=== PATIENT | female | born 1930 | race African-American/Black ===

== ENCOUNTER 2016-08-10 03:40 | Inpatient (IN) | payer MEDICARE, MEDICAID ==
[2016-08-10] VITALS (8 sets, daily range): BP systolic 106–159; BP diastolic 40–69
[~2016-08-10] VITALS: Ht 157.5 cm; Wt 63.5 kg
[~2016-08-10 03:40] MED LIST: ALBUTEROL SULF8.5 GM INH; AMBIEN10 MG ORAL; AMBIEN5 MG ORAL; ATROVENT HFA12.9 GM IH; CALCIUM500 M3 PO; CRESTOR10 M1 ORAL; CRESTOR10 M2 ORAL; Crestor; DIOVAN160 MG ORAL; ELIQUIS2.5 MG PO; HYDROCHLOROTHIA25 MG ORAL; LYRICA25 MG ORAL; Lyrica; METOPROLOL TART25 MG ORAL; PROCARDIA XL90 MG PO; SYMBICORT 80-10.2 G1 IH; TYLENOL100 MG/11 PO; VYTORIN 10-201 EACH ORAL
[2016-08-10] MEDS ORDERED: Nitroglycerin Subl 0.4mg tab (Bottle Of 25) SL ONE (03:50)
[2016-08-10] MEDS: Nitroglycerin Subl 0.4mg tab (Bottle Of 25) SL PRN ×2 (03:56→04:27)
--- NOTE | 2016-08-10 04:04 | Emergency Room Report ---
History of Present Illness General Chief Complaint: Dyspnea/Respdistress Source: Patient, Family Member Present Illness HPI Patient is an 86-year-old female who presented after increased difficulty breathing. Patient gradual onset of symptoms over the past 3 days. The patient reports having increased orthopnea. Patient prior history of pacemaker placement. Patient had no recent productive cough. She reported having some chest tightness. She noted some increased leg swelling. The patient had prior history of inhaler use from asthma. She had been using her inhaler more frequently. Allergies: Coded Allergies: No Known Allergies (Verified , 03/30/09) Patient History Past Medical History: see triage record Reviewed Nursing Documentation: PMH: Agreed, PSxH: Agreed Nursing Documentation-PMH Hx Cardiac Problems: Yes Hx Hypertension: Yes Hx Pacemaker: No Hx Asthma: Yes Hx COPD: Yes Hx Diabetes: No Hx Cancer: Yes Hx Gastrointestinal Problems: No Hx Dialysis: No Hx Neurological Problems: No Hx Cerebrovascular Accident: No Hx Seizures: No Review of Systems All Other Systems: limited - by poor historian Physical Exam Vital Signs Date Time Temp Pulse Resp B/P Pulse Ox O2 Delivery O2 Flow Rate FiO2 08/10/16 03:48 97.9 77 21 158/65 96 Room Air Sp02 EP Interpretation: reviewed, normal General Appearance: normal inspection, alert, GCS 15, moderate distress Head: atraumatic ENT: normal ENT inspection, hearing grossly normal, normal voice Neck: normal inspection, supple, no bony tend, limited range of motion, other - jvd Respiratory: normal inspection, lungs clear, normal breath sounds, no respiratory distress, no retraction, no wheezing Cardiovascular #1: regular rate, rhythm, edema - trace edema Gastrointestinal: normal inspection, normal bowel sounds, non tender, soft, no guarding, no hernia Genitourinary: no CVA tenderness Musculoskeletal: normal inspection, back normal, normal range of motion Neurologic: normal inspection, alert, oriented x3, responsive, 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 Differential included but was not limited to anemia, pneumonia, pneumothorax, myocardial infarction, pericardial effusion, congestive heart failure, acidosis. Because of complexity of patient' s case laboratory testing and imaging studies were ordered. EKG interpreted by me showed paced rhythm with no acute ST or T wave changes. Patient was placed on polisher implant. This was given nitroglycerin as well as Lasix. The patient's laboratory testing was notable for markedly elevated BNP white blood count was noted be normal.Dr. Fredy Benjamin was contacted for inpatient management Labs Test 08/10/16 04:15 08/10/16 04:30 White Blood Count 7.7 K/UL (4.8-10.8) Red Blood Count 4.04 M/UL (4.20-5.40) Hemoglobin 12.5 G/DL (12.0-16.0) Hematocrit 38.1 % (37.0-47.0) Mean Corpuscular Volume 94 FL (80-99) Mean Corpuscular Hemoglobin 31.0 PG (27.0-31.0) Mean Corpuscular Hemoglobin Concent 32.8 G/DL (32.0-36.0) Red Cell Distribution Width 13.9 % (11.6-14.8) Platelet Count 227 K/UL (150-450) Mean Platelet Volume 7.2 FL (6.5-10.1) Neutrophils (%) (Auto) 52.5 % (45.0-75.0) Lymphocytes (%) (Auto) 32.6 % (20.0-45.0) Monocytes (%) (Auto) 10.9 % (1.0-10.0) Eosinophils (%) (Auto) 2.5 % (0.0-3.0) Basophils (%) (Auto) 1.5 % (0.0-2.0) Prothrombin Time 10.3 SEC (9.30-11.50) Prothromb Time International Ratio 1.0 (0.9-1.1) Activated Partial Thromboplast Time 27 SEC (23-33) Sodium Level 141 mEQ/L (135-145) Potassium Level 3.9 mEQ/L (3.4-4.9) Chloride Level 101 mEQ/L (98-107) Carbon Dioxide Level 22 mEQ/L (20-30) Anion Gap 18 (5-15) Blood Urea Nitrogen 12 mg/dL (7-23) Creatinine 1.1 mg/dL (0.5-0.9) Estimat Glomerular Filtration Rate mL/min (>60) Glucose Level 111 mg/dL (74-106) Lactic Acid Level 1.10 mmol/L (0.66-2.22) Calcium Level 10.1 mg/dL (8.6-10.2) Total Bilirubin 0.4 mg/dL (0.0-1.2) Aspartate Amino Transf (AST/SGOT) 14 U/L (5-40) Alanine Aminotransferase (ALT/SGPT) 7 U/L (3-33) Alkaline Phosphatase 69 U/L (35-104) Total Creatine Kinase 32 U/L (26-140) Creatine Kinase MB 2.1 ng/mL (< 3.8) Creatine Kinase MB Relative Index 6.5 Troponin I < 0.30 ng/mL (<=0.30) Pro-B-Type Natriuretic Peptide 3038 pg/mL (0-450) Total Protein 7.2 g/dL (6.6-8.7) Albumin 3.6 g/dL (3.5-5.2) Globulin 3.6 g/dL Albumin/Globulin Ratio 1.0 (1.0-2.7) Urine Color Yellow Urine Appearance Clear Urine pH 6 (4.5-8.0) Urine Specific [place] 1.005 (1.005-1.035) Urine Protein 1+ (NEGATIVE) Urine Glucose (UA) Negative (NEGATIVE) Urine Ketones Negative (NEGATIVE) Urine Occult Blood 4+ (NEGATIVE) Urine Nitrite Negative (NEGATIVE) Urine Bilirubin Negative (NEGATIVE) Urine Urobilinogen Normal MG/DL (0.0-1.0) Urine Leukocyte Esterase Negative (NEGATIVE) Urine RBC 5-10 /HPF (0 - 2) Urine WBC 0 /HPF (0 - 2) Urine Squamous Epithelial Cells Few /LPF (NONE/OCC) Urine Bacteria None /HPF (NONE) Rhythm Strip Diag. Results Rhythm: no PVC's, no ectopy, other - paced rhythm 67 Chest X-Ray Diagnostic Results EP Interpretation: Yes Findings: no effusion, no pneumothorax, no acute cardiopulmonary disease, other - elevated right hemidiaphragm Number of Views: 1 Last Vital Signs Date Time Temp Pulse Resp B/P Pulse Ox O2 Delivery O2 Flow Rate FiO2 08/10/16 03:56 159/62 08/10/16 03:48 97.9 77 21 96 Room Air Status: unchanged Disposition: ADMITTED INPATIENT Condition: Serious Referrals: NOT CHOSEN IPA/,REFERRING (PCP) Freeman Duong Aug 10, 2016 04:04
[2016-08-10] MEDS ORDERED: Aspirin Baby 81mg ORAL ONE (04:15)
[2016-08-10 04:27] LABS: BASOPHILS % (AUTO) 1.5 % (0.0-2.0); EOSINOPHILS % (AUTO) 2.5 % (0.0-3.0); LYMPHOCYTES % (AUTO) 32.6 % (20.0-45.0); MEAN CORPUSCULAR HGB CONC 32.8 G/DL (32.0-36.0); MEAN CORPUSCULAR VOLUME 94 FL (80-99); MEAN PLATELET VOLUME 7.2 FL (6.5-10.1); MONOCYTES % (AUTO) 10.9 % (1.0-10.0); NEUTROPHILS % (AUTO) 52.5 % (45.0-75.0); PLATELET COUNT 227 K/UL (150-450); RED BLOOD COUNT 4.04 M/UL (4.20-5.40); RED CELL DISTRIBUTION WIDTH 13.9 % (11.6-14.8); WHITE BLOOD COUNT 7.7 K/UL (4.8-10.8)
[2016-08-10 04:37] LABS: APPEARANCE,URINE CLEAR; KETONES,URINE NEGATIVE (NEGATIVE); LEUKOCYTE ESTERASE ,URINE NEGATIVE (NEGATIVE); NITRITE,URINE NEGATIVE (NEGATIVE); PH,URINE 6 (4.5-8.0); PROTEIN,URINE 1+ (NEGATIVE); UROBILINOGEN,URINE NORMAL MG/DL (0.0-1.0)
[2016-08-10 04:38] LABS: PROTHROMBIN TIME 10.3 SEC (9.30-11.50)
[2016-08-10] MEDS ORDERED: CARDIZEM60 MG ORAL (04:42)
[2016-08-10 04:46] LABS: ALANINE AMINOTRANSFERASE 7 U/L (3-33); ANION GAP 18 (5-15); ASPARTATE AMINO TRANSFERASE 14 U/L (5-40); CALCIUM 10.1 mg/dL (8.6-10.2); CARBON DIOXIDE 22 mEQ/L (20-30); CHLORIDE 101 mEQ/L (98-107); CREATININE 1.1 mg/dL (0.5-0.9); HEMOLYSIS 10; POTASSIUM 3.9 mEQ/L (3.4-4.9); SODIUM 141 mEQ/L (135-145); TOTAL PROTEIN 7.2 g/dL (6.6-8.7)
[2016-08-10 04:50] LABS: TROPONIN I < 0.30 ng/mL (<=0.30)
[2016-08-10 04:57] LABS: CKMB 2.1 ng/mL (< 3.8)
[2016-08-10 05:02] LABS: SQUAMOUS EPITHELIAL CELL,UR FEW /LPF (NONE/OCC); WBC,URINE 0 /HPF (0 - 2)
[2016-08-10] MEDS ORDERED: Milk of Magnesia 30ml Ud ORAL PRN (08:15)
[2016-08-10] MEDS ORDERED: Zolpidem 5mg tab ORAL PRN (08:15)
[2016-08-10] MEDS ORDERED: Nitroglycerin Subl 0.4mg tab (Bottle Of 25) SL PRN (08:15)
[2016-08-10] MEDS ORDERED: DuoNeb 0.5-3(2.5)mg/3ml neb INH PRN (08:15)
[2016-08-10] MEDS ORDERED: Mylanta II UD 30ml ORAL PRN (08:15)
[2016-08-10] MEDS ORDERED: Miralax 17gm pkt ORAL PRN (08:15)
[2016-08-10] MEDS: Lyrica 25mg cap ORAL SCH ×3 (09:00→17:59)
[2016-08-10] MEDS: Eliquis 2.5mg tablet ORAL SCH ×2 (09:21→17:40)
[2016-08-10] MEDS: Aspirin Baby 81mg ORAL SCH (09:21)
[2016-08-10] MEDS: Docusate 100mg cap ORAL SCH ×2 (09:23→20:16)
--- NOTE | 2016-08-10 09:41 | Diagnostic Imaging Report ---
Indication: Chest pain Technique: XRAY CHEST 1 V Comparison: 02/07/16 Findings: Cardiac silhouette is prominent. There is again elevation of the right hemidiaphragm. There is mild central pulmonary vascular prominence. Bibasilar atelectasis is noted. There is a left chest pacemaker. Osseous structures are stable. Impression: Cardiomegaly with mild central pulmonary vascular congestion. Bibasilar atelectasis. Elevation of the right hemidiaphragm. Left chest pacemaker.
--- NOTE | 2016-08-10 11:31 | Consultation ---
History of Present Illness General Date patient seen: Aug 10, 2016 Chief Complaint: Dyspnea/Respdistress Referring physician: Dr. Benjamin Reason for Consultation: dyspnea Present Illness HPI 86-year-old female with hx of cardiac disease, Pacemaker, COPD, bladder cancer who presented after increased difficulty breathing. Patient gradual onset of symptoms over the past 3 days. Patient had no recent productive cough. No fevers, no other cold or Flu symptoms. She reported having some chest tightness and some increased leg swelling. she was diagnosed to have acute exacerbation of her CHF and COPD and admitted to telemetry for further treatment. Allergies: Coded Allergies: No Known Allergies (Verified , 03/30/09) Medication History Scheduled Albuterol Sulfate* (Albuterol Sulfate Mdi*), 2 PUFF INH Q6H, (Reported) Apixaban (Eliquis), 2.5 MG PO BID, (Reported) Diltiazem Hcl* (Cardizem*), 120 MG ORAL DAILY, (Reported) Metoprolol Tartrate* (Metoprolol Tartrate*), 25 MG ORAL BID, (Reported) Nifedipine Xl* (Procardia Xl*), 90 MG PO DAILY, (Reported) Pregabalin (Lyrica), 25 MG ORAL BID, (Reported) Rosuvastatin Calcium (Crestor), 10 MG ORAL DAILY, (Reported) Valsartan (Diovan), 160 MG ORAL DAILY, (Reported) Scheduled PRN Zolpidem Tartrate* (Ambien*), 10 MG ORAL BEDTIME PRN for Insomnia, (Reported) Miscellaneous Medications Budesonide/Formoterol Fumarate (Symbicort 80-4.5 Mcg Inhaler), 1 PUFF IH, ( Reported) Calcium Carbonate (Calcium), 10 MG PO, (Reported) Ipratropium [place] (Atrovent Hfa), 12.9 GM IH, (Reported) Patient History Healthcare decision maker Resuscitation status Advanced Directive on File Past Medical/Surgical History Past Medical/Surgical History: (1) Depression (2) Asthma (3) Congestive heart failure (4) Cervical disc disease (5) Pacemaker Review of Systems Respiratory: Reports: shortness of breath All Other Systems: negative except mentioned in HPI Physical Exam General Appearance: WD/WN, no apparent distress Lines, tubes and drains: peripheral, central line HEENT: normocephalic, anicteric Neck: non-tender, normal alignment Respiratory/Chest: chest wall non-tender, lungs clear, rhonchi - bilaterally Cardiovascular/Chest: normal peripheral pulses, regular rhythm Abdomen: normal bowel sounds, non tender Extremities: normal range of motion, non-tender Skin Exam: normal pigmentation Last 24 Hour Vital Signs Date Time Temp Pulse Resp B/P Pulse Ox O2 Delivery O2 Flow Rate FiO2 08/10/16 09:22 73 154/69 08/10/16 08:01 96.3 73 18 154/69 100 Room Air 08/10/16 07:36 97.8 80 22 134/41 96 Room Air 68 08/10/16 07:04 65 22 134/41 96 Room Air 08/10/16 06:12 68 22 145/50 96 Room Air 08/10/16 05:17 72 22 144/42 96 Room Air 08/10/16 04:52 68 22 Room Air 08/10/16 04:27 159/62 08/10/16 04:00 97.8 80 16 159/62 94 Room Air 08/10/16 03:56 159/62 08/10/16 03:48 97.9 77 21 158/65 96 Room Air Intake and Output 08/09/16 08/10/16 19:00 07:00 Output Total 60 ml Balance -60 ml Output Urine Total 60 ml Laboratory Tests Test 08/10/16 04:15 08/10/16 04:30 White Blood Count 7.7 K/UL (4.8-10.8) Red Blood Count 4.04 M/UL (4.20-5.40) L Hemoglobin 12.5 G/DL (12.0-16.0) Hematocrit 38.1 % (37.0-47.0) Mean Corpuscular Volume 94 FL (80-99) Mean Corpuscular Hemoglobin 31.0 PG (27.0-31.0) Mean Corpuscular Hemoglobin Concent 32.8 G/DL (32.0-36.0) Red Cell Distribution Width 13.9 % (11.6-14.8) Platelet Count 227 K/UL (150-450) Mean Platelet Volume 7.2 FL (6.5-10.1) Neutrophils (%) (Auto) 52.5 % (45.0-75.0) Lymphocytes (%) (Auto) 32.6 % (20.0-45.0) Monocytes (%) (Auto) 10.9 % (1.0-10.0) H Eosinophils (%) (Auto) 2.5 % (0.0-3.0) Basophils (%) (Auto) 1.5 % (0.0-2.0) Prothrombin Time 10.3 SEC (9.30-11.50) Prothromb Time International Ratio 1.0 (0.9-1.1) Activated Partial Thromboplast Time 27 SEC (23-33) Sodium Level 141 mEQ/L (135-145) Potassium Level 3.9 mEQ/L (3.4-4.9) Chloride Level 101 mEQ/L (98-107) Carbon Dioxide Level 22 mEQ/L (20-30) Anion Gap 18 (5-15) H Blood Urea Nitrogen 12 mg/dL (7-23) Creatinine 1.1 mg/dL (0.5-0.9) H Estimat Glomerular Filtration Rate mL/min (>60) Glucose Level 111 mg/dL (74-106) H Lactic Acid Level 1.10 mmol/L (0.66-2.22) Calcium Level 10.1 mg/dL (8.6-10.2) Total Bilirubin 0.4 mg/dL (0.0-1.2) Aspartate Amino Transf (AST/SGOT) 14 U/L (5-40) Alanine Aminotransferase (ALT/SGPT) 7 U/L (3-33) Alkaline Phosphatase 69 U/L (35-104) Total Creatine Kinase 32 U/L (26-140) Creatine Kinase MB 2.1 ng/mL (< 3.8) Creatine Kinase MB Relative Index 6.5 Troponin I < 0.30 ng/mL (<=0.30) Pro-B-Type Natriuretic Peptide 3038 pg/mL (0-450) H Total Protein 7.2 g/dL (6.6-8.7) Albumin 3.6 g/dL (3.5-5.2) Globulin 3.6 g/dL Albumin/Globulin Ratio 1.0 (1.0-2.7) Urine Color Yellow Urine Appearance Clear Urine pH 6 (4.5-8.0) Urine Specific [place] 1.005 (1.005-1.035) Urine Protein 1+ (NEGATIVE) H Urine Glucose (UA) Negative (NEGATIVE) Urine Ketones Negative (NEGATIVE) Urine Occult Blood 4+ (NEGATIVE) H Urine Nitrite Negative (NEGATIVE) Urine Bilirubin Negative (NEGATIVE) Urine Urobilinogen Normal MG/DL (0.0-1.0) Urine Leukocyte Esterase Negative (NEGATIVE) Urine RBC 5-10 /HPF (0 - 2) H Urine WBC 0 /HPF (0 - 2) Urine Squamous Epithelial Cells Few /LPF (NONE/OCC) Urine Bacteria None /HPF (NONE) Height (Feet): 5 Height (Inches): 2.00 Weight (Pounds): 140 Medications Current Medications Medications (Trade) Dose Ordered Sig/Tricia Route PRN Reason Start Time Stop Time Status Last Admin Dose Admin Al Hydroxide/Mg Hydroxide (Mylanta II) 30 ml Q6H PRN ORAL dyspepsia 08/10/16 08:15 09/09/16 08:14 Albuterol/ Ipratropium (DuoNeb 0.5-3(2.5)mg/3ml) 3 ml Q4H PRN INH Shortness of Breath 08/10/16 08:15 08/15/16 08:14 Albuterol/ Ipratropium (DuoNeb 0.5-3(2.5)mg/3ml) 3 ml Q8HRT INH 08/10/16 15:00 08/15/16 14:59 Apixaban (Eliquis) 2.5 mg BID ORAL 08/10/16 09:30 09/09/16 09:29 08/10/16 09:21 Aspirin (ASA) 81 mg DAILY ORAL 08/10/16 09:00 09/09/16 08:59 08/10/16 09:21 Bisacodyl (Dulcolax) 10 mg HSPRN PRN RECTAL Constipation 08/10/16 08:15 09/09/16 08:14 Dextrose (Dextrose 50%) STAT PRN IV Hypoglycemia 08/10/16 08:15 09/09/16 08:14 Docusate Sodium (Colace) 100 mg EVERY 12 HOURS ORAL 08/10/16 09:00 09/09/16 08:59 08/10/16 09:23 Magnesium Hydroxide (Mom) 30 ml HSPRN PRN ORAL Constipation 08/10/16 08:15 09/09/16 08:14 Nifedipine (Procardia XL) 90 mg DAILY ORAL 08/10/16 09:00 09/09/16 08:59 08/10/16 09:22 Nitroglycerin (Ntg) 0.4 mg Q5M X 3 DOSES PRN SL Prn Chest Pain 08/10/16 08:15 09/09/16 08:14 Ondansetron HCl (Zofran) 4 mg Q6H PRN IVP Nausea & Vomiting 08/10/16 08:15 09/09/16 08:14 Pantoprazole (Protonix) 40 mg DAILY ORAL 08/10/16 09:00 09/09/16 08:59 08/10/16 09:22 Polyethylene Glycol (Miralax) 17 gm HSPRN PRN ORAL Constipation 08/10/16 08:15 09/09/16 08:14 Pregabalin (Lyrica) 25 mg BID ORAL 08/10/16 09:00 09/09/16 08:59 Zolpidem Tartrate (Ambien) 10 mg BEDTIME PRN ORAL Insomnia 08/10/16 08:15 09/09/16 08:14 Assessment/Plan Problem List: (1) Congestive heart failure Qualifiers: (2) COPD (chronic obstructive pulmonary disease) ICD Codes: J44.9 - Chronic obstructive pulmonary disease, unspecified SNOMED: 03154115 Qualifiers: (3) Sick sinus syndrome ICD Codes: I49.5 - Sick sinus syndrome SNOMED: 17718615 (4) Pacemaker ICD Codes: Z95.0 - Presence of cardiac pacemaker SNOMED: 23531716, 126603302, 485783954 Assessment/Plan respiratory treatment IV lasix check out pace maker, echo cardiogram daily intake and output AYDE ASHLEY Aug 10, 2016 11:31
--- NOTE | 2016-08-10 12:41 | History & Physical ---
History and Physical History & Physicial Fredy Benjamin MD Aug 10, 2016 12:41
[2016-08-10] MEDS: DuoNeb 0.5-3(2.5)mg/3ml neb INH SCH (15:59)
--- NOTE | 2016-08-10 17:49 | Cardiology Progress Note ---
Subjective Subjective [id number] Objective Last 24 Hour Vital Signs Date Time Temp Pulse Resp B/P Pulse Ox O2 Delivery O2 Flow Rate FiO2 08/10/16 16:10 72 20 100 Room Air 08/10/16 16:00 97.2 78 21 106/40 97 Room Air 08/10/16 16:00 83 18 100 Room Air 08/10/16 15:59 83 18 Room Air 08/10/16 12:00 72 08/10/16 11:24 96.8 74 18 149/55 100 Room Air 08/10/16 09:22 73 154/69 08/10/16 08:01 96.3 73 18 154/69 100 Room Air 08/10/16 08:00 72 08/10/16 07:36 97.8 80 22 134/41 96 Room Air 68 08/10/16 07:04 65 22 134/41 96 Room Air 08/10/16 06:12 68 22 145/50 96 Room Air 08/10/16 05:17 72 22 144/42 96 Room Air 08/10/16 04:52 68 22 Room Air 08/10/16 04:27 159/62 08/10/16 04:00 97.8 80 16 159/62 94 Room Air 08/10/16 03:56 159/62 08/10/16 03:48 97.9 77 21 158/65 96 Room Air Intake and Output 08/09/16 08/10/16 19:00 07:00 Output Total 60 ml Balance -60 ml Output Urine Total 60 ml Laboratory Tests Test 08/10/16 04:15 08/10/16 04:30 White Blood Count 7.7 K/UL (4.8-10.8) Red Blood Count 4.04 M/UL (4.20-5.40) L Hemoglobin 12.5 G/DL (12.0-16.0) Hematocrit 38.1 % (37.0-47.0) Mean Corpuscular Volume 94 FL (80-99) Mean Corpuscular Hemoglobin 31.0 PG (27.0-31.0) Mean Corpuscular Hemoglobin Concent 32.8 G/DL (32.0-36.0) Red Cell Distribution Width 13.9 % (11.6-14.8) Platelet Count 227 K/UL (150-450) Mean Platelet Volume 7.2 FL (6.5-10.1) Neutrophils (%) (Auto) 52.5 % (45.0-75.0) Lymphocytes (%) (Auto) 32.6 % (20.0-45.0) Monocytes (%) (Auto) 10.9 % (1.0-10.0) H Eosinophils (%) (Auto) 2.5 % (0.0-3.0) Basophils (%) (Auto) 1.5 % (0.0-2.0) Prothrombin Time 10.3 SEC (9.30-11.50) Prothromb Time International Ratio 1.0 (0.9-1.1) Activated Partial Thromboplast Time 27 SEC (23-33) Sodium Level 141 mEQ/L (135-145) Potassium Level 3.9 mEQ/L (3.4-4.9) Chloride Level 101 mEQ/L (98-107) Carbon Dioxide Level 22 mEQ/L (20-30) Anion Gap 18 (5-15) H Blood Urea Nitrogen 12 mg/dL (7-23) Creatinine 1.1 mg/dL (0.5-0.9) H Estimat Glomerular Filtration Rate mL/min (>60) Glucose Level 111 mg/dL (74-106) H Lactic Acid Level 1.10 mmol/L (0.66-2.22) Calcium Level 10.1 mg/dL (8.6-10.2) Total Bilirubin 0.4 mg/dL (0.0-1.2) Aspartate Amino Transf (AST/SGOT) 14 U/L (5-40) Alanine Aminotransferase (ALT/SGPT) 7 U/L (3-33) Alkaline Phosphatase 69 U/L (35-104) Total Creatine Kinase 32 U/L (26-140) Creatine Kinase MB 2.1 ng/mL (< 3.8) Creatine Kinase MB Relative Index 6.5 Troponin I < 0.30 ng/mL (<=0.30) Pro-B-Type Natriuretic Peptide 3038 pg/mL (0-450) H Total Protein 7.2 g/dL (6.6-8.7) Albumin 3.6 g/dL (3.5-5.2) Globulin 3.6 g/dL Albumin/Globulin Ratio 1.0 (1.0-2.7) Urine Color Yellow Urine Appearance Clear Urine pH 6 (4.5-8.0) Urine Specific [place] 1.005 (1.005-1.035) Urine Protein 1+ (NEGATIVE) H Urine Glucose (UA) Negative (NEGATIVE) Urine Ketones Negative (NEGATIVE) Urine Occult Blood 4+ (NEGATIVE) H Urine Nitrite Negative (NEGATIVE) Urine Bilirubin Negative (NEGATIVE) Urine Urobilinogen Normal MG/DL (0.0-1.0) Urine Leukocyte Esterase Negative (NEGATIVE) Urine RBC 5-10 /HPF (0 - 2) H Urine WBC 0 /HPF (0 - 2) Urine Squamous Epithelial Cells Few /LPF (NONE/OCC) Urine Bacteria None /HPF (NONE) MAGUE DELEON Aug 10, 2016 17:49
--- NOTE | 2016-08-10 20:39 | History and Physical Report ---
DATE OF ADMISSION: 08/10/2016 CHIEF COMPLAINT: Shortness of breath. HISTORY OF PRESENT ILLNESS: This is an 86-year-old very delightful female with past medical history significant for sick sinus syndrome status post pacemaker, history of COPD, and bladder cancer on remission, who was presented to hospital complaining about difficulty bleeding and has been going on over past five days and progressively worsening. The patient stated that she has nonproductive cough occasionally. She denies any flu-like symptoms or history of fever or chills. She denies any loss of consciousness leg edema. She has lost over 30 pounds due to the lack of appetite. Shortly after initial evaluation in the emergency, the patient was admitted to the hospital with fluid overload with acute COPD and CHF exacerbation. PAST MEDICAL HISTORY/PAST SURGICAL HISTORY: As above. 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 MEDICATIONS: Medications at home significant for Diovan 160 mg daily, Crestor 10 mg daily, Lyrica 25 mg b.i.d., Procardia XL 90 mg daily, metoprolol 25 mg b.i.d., Eliquis 2.5 mg b.i.d., and albuterol inhaler, but I am not sure if the patient's compliance with that. The patient also taking Ambien 10 mg p.o. at nightly for insomnia as well as Symbicort, calcium, and Atrovent nebulizer. SOCIAL HISTORY: Denies any smoking, alcohol, or drugs. Very supportive family. FAMILY HISTORY: Noncontributory. REVIEW OF SYSTEMS: Mostly as above. Denies any dysuria, frequency, or hematuria. Complained about shortness of breath. Complained about pedal edema. Denies any hemoptysis or hematochezia. Denies any bright red blood per rectum. Denies any loss of consciousness. PHYSICAL EXAMINATION: VITAL SIGNS: On admission, temperature 97.8 degrees, pulse of 80, respiration 22, and blood pressure 134/41. GENERAL: The patient awake and responsive, no acute distress. HEAD AND NECK: Pupils are reactive to light. Extraocular movements are intact. Neck was supple. No JVD. LUNGS: Good air entry. No wheeze or rales. HEART: S1 and S2. Regular. No murmur or gallops. Left-side chest wall has a pacemaker was noted. ABDOMEN: Soft, nondistended, and nontender. No rebound tenderness. EXTREMITIES: No cyanosis or clubbing. Trace edema around ankle. NEUROLOGIC: Cranial nerves II through XII are grossly intact. The patient is moving all extremities. Gait is steady with a walker. LABORATORY AND DIAGNOSTIC DATA: Laboratory on admission from the ER, WBC of 7.7, hemoglobin 12, hematocrit 38, and platelets 227,000. Sodium 141, potassium , chloride 101, bicarbonate 22, BUN 12, and creatinine 1.1. First troponin less than 0.30. Lactic acid is 1.1. ProBNP of 3038. Total protein is 7.2. Albumin is 3.6. PT of 10, INR 1.0, and PTT of 27. UA, +1 protein, +4 occult blood, and 5 to 10 RBC. The patient has a chest x-ray done shows cardiomegaly with mild constant central pulmonary vascular congestion, bilateral atelectasis, and elevated right hemidiaphragm of left chest wall, and permanent pacemaker was noted. EKG is noted to be in a sinus rhythm with a ventricular rate of 83, left AV block and left bundle branch block, left axis deviation, no ST elevation was identified. ASSESSMENT: 1. Shortness of breath possible acute chronic obstructive pulmonary disease exacerbation as well as acute congestive heart failure. 2. Hypertension. 3. Dyslipidemia. 4. History of bladder cancer. 5. Degenerative joint disease of cervical spine. 6. Weight loss. PLAN: Admit the patient to telemetry. We will follow up with Dr. Craig, Pulmonary Critical Care and Dr. Solitario from Cardiology and Electrophysiology. Continue home medication including Eliquis and we will monitor laboratory closely, PT evaluation, and nebulizer treatment. Code status is Full Code. Fredy Benjamin M.D. DR: Miguel JOB#: [id number] CC:
[2016-08-11 00:15] VITALS: BP 130/60
--- NOTE | 2016-08-11 00:19 | Consultation ---
DATE OF CONSULTATION: 08/10/2016 CARDIOLOGY CONSULTATION REFERRING PHYSICIAN: Fredy Benjamin M.D. REASON FOR EVALUATION: Congestive heart failure. HISTORY OF PRESENT ILLNESS: History taken from the patient and her daughter. The patient indicates that she could not breathe and that is why she called ambulance, came to the emergency department. She denies any fever or syncopal episode. She also complained of substernal "gas". She is difficult historian PAST MEDICAL HISTORY: Significant for congestive heart failure. She had paroxysmal atrial fibrillation. She has a pacemaker in situ. She is chronically anticoagulated. She also has hypertension and hypertensive heart disease. She also has history of gastritis and GERD. She has history of urinary bladder in remission. MEDICATIONS: Her home medications are all reconciled. ALLERGIES: She is not allergic to any medications. HABITS: She has no history of drinking, smoking or drug abuse. REVIEW OF SYSTEMS: There is no fever, chills, abdominal pain, nausea, vomiting, syncopal episode, or PND or orthopnea. She has no wheezing or cough. PHYSICAL EXAMINATION: GENERAL: This is a pleasant elderly female, lying in bed. VITAL SIGNS: Her blood pressure initially was 160/70, heart rate is 70, her oxygen saturation is 97% on room air, and temperature was 97.2 degrees. HEENT: PERRLA. EOMI. NECK: Neck veins are elevated to approximately 8 cm (mild). The carotid upstroke bilaterally is brisk and she has a bruit in the left side. LUNGS: She has few crackles and she has rhonchi bilaterally. Anterior, there is no wheezing. There is a pacemaker on the left side. HEART: PMI is palpable in seventh intercostal space in anterior axial line. She has diminished S1. She has positive S4. She has systolic ejection murmur on the apex 2/6. ABDOMEN: Soft, slightly tender. No masses palpable. EXTREMITIES: Lower extremities, no edema. Distal pulses palpable bilaterally. Good capillary refill. LABORATORY AND DIAGNOSTIC DATA: Chest x-ray showed cardiomegaly. She has a pacemaker on the left side and she has mild pulmonary venous congestion. There is no infiltrates. Her labs from today remarkable for RBC 4.4. Her creatinine 1.1. BNP level 3038. Troponin was normal. EKG shows sinus rhythm with a ventricular pacing and wide QRS. Urinalysis was noted. IMPRESSION AND RECOMMENDATION: The patient possibly has mild congestive heart failure exacerbation versus COPD exacerbation. I could not find her echocardiogram recently. She is on nifedipine. I am going to try to limit this medication because it promotes fluid accumulation and also I am going to check and see when her pacemaker was interrogated last time. The patient not is incapable of telling that. I am going to follow this patient with you. Thank you very much for your referral. Shannen Gatica M.D. DR: BLANCA JOB#: [id number] CC: SAGAR
[2016-08-11] MEDS: DuoNeb 0.5-3(2.5)mg/3ml neb INH SCH ×4 (00:25→23:00)
[2016-08-11 07:23] LABS: TROPONIN I < 0.30 ng/mL (<=0.30)
[2016-08-11 07:27] LABS: ALANINE AMINOTRANSFERASE 6 U/L (3-33); ALBUMIN/GLOBULIN RATIO 1.2 (1.0-2.7); ANION GAP 17 (5-15); ASPARTATE AMINO TRANSFERASE 12 U/L (5-40); CALCIUM 10.1 mg/dL (8.6-10.2); CARBON DIOXIDE 26 mEQ/L (20-30); CHLORIDE 100 mEQ/L (98-107); CHOLESTEROL 170 mg/dL (< 200); CREATININE 1.2 mg/dL (0.5-0.9); HEMOLYSIS 8; MAGNESIUM 1.9 mg/dL (1.7-2.5); PHOSPHORUS 4.2 mg/dL (2.5-4.8); POTASSIUM 4.2 mEQ/L (3.4-4.9); SODIUM 143 mEQ/L (135-145); TOTAL PROTEIN 6.7 g/dL (6.6-8.7)
[2016-08-11 08:23] VITALS: BP 125/61
[2016-08-11] MEDS: Aspirin Baby 81mg ORAL SCH (08:35)
[2016-08-11] MEDS: Docusate 100mg cap ORAL SCH ×2 (08:36→22:05)
[2016-08-11] MEDS: Lyrica 25mg cap ORAL SCH ×2 (08:36→17:45)
[2016-08-11] MEDS: Eliquis 2.5mg tablet ORAL SCH ×2 (08:36→17:43)
[2016-08-11] MEDS ORDERED: Influenza Virus Vaccine 0.5ml IM ONE (10:00)
[2016-08-11 11:39] VITALS: BP 118/82
--- NOTE | 2016-08-11 11:59 | Internal Med Progress Note ---
Subjective Physician Name Fredy Benjamin Attending Physician Fredy Benjamin MD Current Medications Medications (Trade) Dose Ordered Sig/Tricia Route PRN Reason Start Time Stop Time Status Last Admin Dose Admin Acetaminophen (Tylenol) 650 mg Q6H PRN ORAL Mild Pain/Temp > 100.5 08/10/16 12:45 09/09/16 12:44 Al Hydroxide/Mg Hydroxide (Mylanta II) 30 ml Q6H PRN ORAL dyspepsia 08/10/16 08:15 09/09/16 08:14 08/10/16 20:16 Al Hydroxide/Mg Hydroxide (Mylanta) 30 ml QIDPRN PRN ORAL DYSPEPSIA 08/10/16 17:45 09/09/16 17:44 Albuterol/ Ipratropium (DuoNeb 0.5-3(2.5)mg/3ml) 3 ml Q4H PRN INH Shortness of Breath 08/10/16 08:15 08/15/16 08:14 Albuterol/ Ipratropium (DuoNeb 0.5-3(2.5)mg/3ml) 3 ml Q8HRT INH 08/10/16 15:00 08/15/16 14:59 08/11/16 00:25 Apixaban (Eliquis) 2.5 mg BID ORAL 08/10/16 09:30 09/09/16 09:29 08/11/16 08:36 Aspirin (ASA) 81 mg DAILY ORAL 08/10/16 09:00 09/09/16 08:59 08/11/16 08:35 Bisacodyl (Dulcolax) 10 mg HSPRN PRN RECTAL Constipation 08/10/16 08:15 09/09/16 08:14 Dextrose (Dextrose 50%) STAT PRN IV Hypoglycemia 08/10/16 08:15 09/09/16 08:14 Docusate Sodium (Colace) 100 mg EVERY 12 HOURS ORAL 08/10/16 09:00 09/09/16 08:59 08/10/16 20:16 Furosemide (Lasix) 20 mg DAILY IV 08/10/16 12:00 09/09/16 11:59 08/11/16 08:35 Magnesium Hydroxide (Mom) 30 ml HSPRN PRN ORAL Constipation 08/10/16 08:15 09/09/16 08:14 Nifedipine (Procardia XL) 90 mg DAILY ORAL 08/10/16 09:00 09/09/16 08:59 08/11/16 08:35 Nitroglycerin (Ntg) 0.4 mg Q5M X 3 DOSES PRN SL Prn Chest Pain 08/10/16 08:15 09/09/16 08:14 Ondansetron HCl (Zofran) 4 mg Q6H PRN IVP Nausea & Vomiting 08/10/16 08:15 09/09/16 08:14 Pantoprazole (Protonix) 40 mg DAILY ORAL 08/10/16 09:00 09/09/16 08:59 08/11/16 08:34 Polyethylene Glycol (Miralax) 17 gm HSPRN PRN ORAL Constipation 08/10/16 08:15 09/09/16 08:14 Pregabalin (Lyrica) 25 mg BID ORAL 08/10/16 09:00 09/09/16 08:59 Zolpidem Tartrate (Ambien) 10 mg BEDTIME PRN ORAL Insomnia 08/10/16 08:15 09/09/16 08:14 08/11/16 00:01 Allergies: Coded Allergies: No Known Allergies (Verified , 03/30/09) Subjective awake, alert, responsive, NAD, feeling weak Objective Last Vital Signs Date Time Temp Pulse Resp B/P Pulse Ox O2 Delivery O2 Flow Rate FiO2 08/11/16 11:39 97.8 79 18 118/82 96 Room Air Laboratory Tests Test 08/11/16 05:00 Sodium Level 143 mEQ/L (135-145) Potassium Level 4.2 mEQ/L (3.4-4.9) Chloride Level 100 mEQ/L (98-107) Carbon Dioxide Level 26 mEQ/L (20-30) Anion Gap 17 (5-15) H Blood Urea Nitrogen 17 mg/dL (7-23) Creatinine 1.2 mg/dL (0.5-0.9) H Estimat Glomerular Filtration Rate mL/min (>60) Glucose Level 86 mg/dL (74-106) Calcium Level 10.1 mg/dL (8.6-10.2) Phosphorus Level 4.2 mg/dL (2.5-4.8) Magnesium Level 1.9 mg/dL (1.7-2.5) Total Bilirubin 0.4 mg/dL (0.0-1.2) Aspartate Amino Transf (AST/SGOT) 12 U/L (5-40) Alanine Aminotransferase (ALT/SGPT) 6 U/L (3-33) Alkaline Phosphatase 69 U/L (35-104) Troponin I < 0.30 ng/mL (<=0.30) Total Protein 6.7 g/dL (6.6-8.7) Albumin 3.7 g/dL (3.5-5.2) Globulin 3.0 g/dL Albumin/Globulin Ratio 1.2 (1.0-2.7) Cholesterol Level 170 mg/dL (< 200) Microbiology Date/Time Source Procedure Growth Status 08/10/16 04:07 Blood Blood Culture - Preliminary NO GROWTH AFTER 24 HOURS Resulted 08/10/16 03:54 Blood Blood Culture - Preliminary NO GROWTH AFTER 24 HOURS Resulted Intake and Output 08/10/16 08/11/16 19:00 07:00 Intake Total 490 ml 260 ml Output Total 2750 ml 1310 ml Balance -2260 ml -1050 ml Intake Oral 490 ml 260 ml Output Urine Total 2750 ml 1310 ml # Bowel Movements 2 Objective GENERAL: The patient awake and responsive, no acute distress. HEAD AND NECK: Pupils are reactive to light. Extraocular movements are intact. Neck was supple. No JVD. LUNGS: Good air entry. No wheeze or rales. HEART: S1 and S2. Regular. No murmur , pacemaker@ LCW ABDOMEN: Soft, nondistended, and nontender. No rebound tenderness. EXTREMITIES: No cyanosis or clubbing. Trace edema around ankle. NEUROLOGIC: Cranial nerves II through XII are grossly intact. The patient is moving all extremities. Gait is steady with a walker. Assessment/Plan Assessment/Plan ASSESSMENT: 1. Shortness of breath possible acute chronic obstructive pulmonary disease exacerbation as well as acute congestive heart failure. 2. Hypertension. 3. Dyslipidemia. 4. History of bladder cancer. 5. Degenerative joint disease of cervical spine. 6. Weight loss. PLAN: On telemetry. Dr. Craig, Pulmonary Critical Care and Dr. Gamez from Cardiology DVT prophylaxis: Eliquis monitor laboratory closely, PT evaluation, Nebulizer treatment. Code status: Full Code CT chest / abdomen / Pelvic Fredy Benjamin MD Aug 11, 2016 11:59
--- NOTE | 2016-08-11 13:10 | Pulmonology Progress Note ---
Assessment/Plan Problems: (1) Congestive heart failure (2) COPD (chronic obstructive pulmonary disease) (3) Sick sinus syndrome (4) Pacemaker Assessment/Plan improving check echo cxr in am check bnp in am I/O was - 3000 on lasix 20 mg iv check electrolytes on Apixiban and Aspirin Subjective ROS Limited/Unobtainable: No Interval Events: feeling better, no short of breath Constitutional: Reports: no symptoms HEENT: Repors: no symptoms Respiratory: Reports: no symptoms Allergies: Coded Allergies: No Known Allergies (Verified , 03/30/09) Objective Last 24 Hour Vital Signs Date Time Temp Pulse Resp B/P Pulse Ox O2 Delivery O2 Flow Rate FiO2 08/11/16 11:39 97.8 79 18 118/82 96 Room Air 08/11/16 08:36 84 17 99 Room Air 08/11/16 08:35 81 125/61 08/11/16 08:34 86 16 100 Room Air 08/11/16 08:23 97.7 81 18 125/61 100 Room Air 08/11/16 08:00 117 08/11/16 04:00 75 08/11/16 00:26 84 20 100 Room Air 08/11/16 00:20 85 18 100 Room Air 08/11/16 00:15 97.5 79 20 130/60 96 Room Air 08/10/16 20:00 80 08/10/16 20:00 97.6 75 20 128/55 96 Room Air 08/10/16 16:10 72 20 100 Room Air 08/10/16 16:00 78 08/10/16 16:00 97.2 78 21 106/40 97 Room Air 08/10/16 16:00 83 18 100 Room Air 08/10/16 15:59 83 18 Room Air Intake and Output 08/10/16 08/11/16 19:00 07:00 Intake Total 490 ml 260 ml Output Total 2750 ml 1310 ml Balance -2260 ml -1050 ml Intake Oral 490 ml 260 ml Output Urine Total 2750 ml 1310 ml # Bowel Movements 2 General Appearance: WD/WN, no acute distress HEENT: normocephalic, atraumatic Respiratory/Chest: chest wall non-tender, lungs clear Cardiovascular: normal peripheral pulses, normal rate Abdomen: normal bowel sounds, soft, non tender Microbiology Date/Time Source Procedure Growth Status 08/10/16 04:07 Blood Blood Culture - Preliminary NO GROWTH AFTER 24 HOURS Resulted 08/10/16 03:54 Blood Blood Culture - Preliminary NO GROWTH AFTER 24 HOURS Resulted Laboratory Tests 08/11/16 05:00: Sodium Level 143, Potassium Level 4.2, Chloride Level 100, Carbon Dioxide Level 26, Anion Gap 17H, Blood Urea Nitrogen 17, Creatinine 1.2H, Estimat Glomerular Filtration Rate , Glucose Level 86, Calcium Level 10.1, Phosphorus Level 4.2, Magnesium Level 1.9, Total Bilirubin 0.4, Aspartate Amino Transf (AST/SGOT) 12, Alanine Aminotransferase (ALT/SGPT) 6, Alkaline Phosphatase 69, Troponin I < 0.30, Total Protein 6.7, Albumin 3.7, Globulin 3.0, Albumin/Globulin Ratio 1.2, Cholesterol Level 170 Current Medications Medications (Trade) Dose Ordered Sig/Tricia Route PRN Reason Start Time Stop Time Status Last Admin Dose Admin Acetaminophen (Tylenol) 650 mg Q6H PRN ORAL Mild Pain/Temp > 100.5 08/10/16 12:45 09/09/16 12:44 Al Hydroxide/Mg Hydroxide (Mylanta II) 30 ml Q6H PRN ORAL dyspepsia 08/10/16 08:15 09/09/16 08:14 08/10/16 20:16 Al Hydroxide/Mg Hydroxide (Mylanta) 30 ml QIDPRN PRN ORAL DYSPEPSIA 08/10/16 17:45 09/09/16 17:44 Albuterol/ Ipratropium (DuoNeb 0.5-3(2.5)mg/3ml) 3 ml Q4H PRN INH Shortness of Breath 08/10/16 08:15 08/15/16 08:14 Albuterol/ Ipratropium (DuoNeb 0.5-3(2.5)mg/3ml) 3 ml Q8HRT INH 08/10/16 15:00 08/15/16 14:59 08/11/16 00:25 Apixaban (Eliquis) 2.5 mg BID ORAL 08/10/16 09:30 09/09/16 09:29 08/11/16 08:36 Aspirin (ASA) 81 mg DAILY ORAL 08/10/16 09:00 09/09/16 08:59 08/11/16 08:35 Bisacodyl (Dulcolax) 10 mg HSPRN PRN RECTAL Constipation 08/10/16 08:15 09/09/16 08:14 Dextrose (Dextrose 50%) STAT PRN IV Hypoglycemia 08/10/16 08:15 09/09/16 08:14 Docusate Sodium (Colace) 100 mg EVERY 12 HOURS ORAL 08/10/16 09:00 09/09/16 08:59 08/10/16 20:16 Furosemide (Lasix) 20 mg DAILY IV 08/10/16 12:00 09/09/16 11:59 08/11/16 08:35 Magnesium Hydroxide (Mom) 30 ml HSPRN PRN ORAL Constipation 08/10/16 08:15 09/09/16 08:14 Nifedipine (Procardia XL) 90 mg DAILY ORAL 08/10/16 09:00 09/09/16 08:59 08/11/16 08:35 Nitroglycerin (Ntg) 0.4 mg Q5M X 3 DOSES PRN SL Prn Chest Pain 08/10/16 08:15 09/09/16 08:14 Ondansetron HCl (Zofran) 4 mg Q6H PRN IVP Nausea & Vomiting 08/10/16 08:15 09/09/16 08:14 Pantoprazole (Protonix) 40 mg DAILY ORAL 08/10/16 09:00 09/09/16 08:59 08/11/16 08:34 Polyethylene Glycol (Miralax) 17 gm HSPRN PRN ORAL Constipation 08/10/16 08:15 09/09/16 08:14 Pregabalin (Lyrica) 25 mg BID ORAL 08/10/16 09:00 09/09/16 08:59 Zolpidem Tartrate (Ambien) 10 mg BEDTIME PRN ORAL Insomnia 08/10/16 08:15 09/09/16 08:14 08/11/16 00:01 AYDE ASHLEY Aug 11, 2016 13:10
[2016-08-11 16:10] VITALS: BP 113/50
--- NOTE | 2016-08-11 16:23 | Cardiology Progress Note ---
Assessment/Plan Assessment/Plan CHF exacerbation: looks stable usbsternal gas: potentially could be angina equivalent will order stress test for tomorrow Subjective Subjective feels slightly better still has mild substernal discomfort dyspnea is mild Objective Last 24 Hour Vital Signs Date Time Temp Pulse Resp B/P Pulse Ox O2 Delivery O2 Flow Rate FiO2 08/11/16 16:10 97.5 86 18 113/50 98 Room Air 08/11/16 14:40 86 18 100 Room Air 08/11/16 14:39 88 17 100 Room Air 08/11/16 12:00 87 08/11/16 11:39 97.8 79 18 118/82 96 Room Air 08/11/16 08:36 84 17 99 Room Air 08/11/16 08:35 81 125/61 08/11/16 08:34 86 16 100 Room Air 08/11/16 08:23 97.7 81 18 125/61 100 Room Air 08/11/16 08:00 117 08/11/16 04:00 75 08/11/16 00:26 84 20 100 Room Air 08/11/16 00:20 85 18 100 Room Air 08/11/16 00:15 97.5 79 20 130/60 96 Room Air 08/10/16 20:00 80 08/10/16 20:00 97.6 75 20 128/55 96 Room Air General Appearance: no apparent distress EENT: normal ENT inspection Neck: supple Rhythm: other - caped, had episodes of a fib, short, Cardiovascular: normal rate, regular rhythm Respiratory/Chest: rhonchi - bilaterally Abdomen: soft Extremities: non-pitting Intake and Output 08/10/16 08/11/16 19:00 07:00 Intake Total 490 ml 260 ml Output Total 2750 ml 1310 ml Balance -2260 ml -1050 ml Intake Oral 490 ml 260 ml Output Urine Total 2750 ml 1310 ml # Bowel Movements 2 Laboratory Tests Test 08/11/16 05:00 Sodium Level 143 mEQ/L (135-145) Potassium Level 4.2 mEQ/L (3.4-4.9) Chloride Level 100 mEQ/L (98-107) Carbon Dioxide Level 26 mEQ/L (20-30) Anion Gap 17 (5-15) H Blood Urea Nitrogen 17 mg/dL (7-23) Creatinine 1.2 mg/dL (0.5-0.9) H Estimat Glomerular Filtration Rate mL/min (>60) Glucose Level 86 mg/dL (74-106) Calcium Level 10.1 mg/dL (8.6-10.2) Phosphorus Level 4.2 mg/dL (2.5-4.8) Magnesium Level 1.9 mg/dL (1.7-2.5) Total Bilirubin 0.4 mg/dL (0.0-1.2) Aspartate Amino Transf (AST/SGOT) 12 U/L (5-40) Alanine Aminotransferase (ALT/SGPT) 6 U/L (3-33) Alkaline Phosphatase 69 U/L (35-104) Troponin I < 0.30 ng/mL (<=0.30) Total Protein 6.7 g/dL (6.6-8.7) Albumin 3.7 g/dL (3.5-5.2) Globulin 3.0 g/dL Albumin/Globulin Ratio 1.2 (1.0-2.7) Cholesterol Level 170 mg/dL (< 200) Microbiology Date/Time Source Procedure Growth Status 08/10/16 04:07 Blood Blood Culture - Preliminary NO GROWTH AFTER 24 HOURS Resulted 08/10/16 03:54 Blood Blood Culture - Preliminary NO GROWTH AFTER 24 HOURS Resulted MAGUE DELEON Aug 11, 2016 16:23
[2016-08-11 20:00] VITALS: BP 118/58
[2016-08-12 01:05] VITALS: BP 120/57
[2016-08-12 04:08] VITALS: BP 129/78
[2016-08-12 07:42] LABS: EOSINOPHILS % (AUTO) 1.9 % (0.0-3.0); LYMPHOCYTES % (AUTO) 20.9 % (20.0-45.0); MEAN CORPUSCULAR HEMOGLOBIN 31.2 PG (27.0-31.0); MEAN CORPUSCULAR VOLUME 94 FL (80-99); MEAN PLATELET VOLUME 7.5 FL (6.5-10.1); MONOCYTES % (AUTO) 10.1 % (1.0-10.0); NEUTROPHILS % (AUTO) 66.1 % (45.0-75.0); PLATELET COUNT 233 K/UL (150-450); RED BLOOD COUNT 4.46 M/UL (4.20-5.40); RED CELL DISTRIBUTION WIDTH 13.9 % (11.6-14.8); WHITE BLOOD COUNT 7.2 K/UL (4.8-10.8)
[2016-08-12 07:46] LABS: ALANINE AMINOTRANSFERASE 6 U/L (3-33); ALBUMIN/GLOBULIN RATIO 0.8 (1.0-2.7); ANION GAP 18 (5-15); ASPARTATE AMINO TRANSFERASE 13 U/L (5-40); CARBON DIOXIDE 25 mEQ/L (20-30); CHLORIDE 98 mEQ/L (98-107); CREATININE 1.4 mg/dL (0.5-0.9); HEMOLYSIS 17; SODIUM 141 mEQ/L (135-145); TOTAL PROTEIN 7.2 g/dL (6.6-8.7)
[2016-08-12] MEDS: DuoNeb 0.5-3(2.5)mg/3ml neb INH SCH ×3 (07:47→23:00)
[2016-08-12 08:00] VITALS: BP 119/59
[2016-08-12] MEDS: Docusate 100mg cap ORAL SCH ×2 (08:46→21:00)
[2016-08-12] MEDS: Aspirin Baby 81mg ORAL SCH (08:46)
[2016-08-12] MEDS: Eliquis 2.5mg tablet ORAL SCH ×2 (08:47→18:17)
[2016-08-12] MEDS: Lyrica 25mg cap ORAL SCH ×2 (08:48→18:20)
--- NOTE | 2016-08-12 10:40 | Internal Med Progress Note ---
Subjective Date of Service: Aug 12, 2016 Physician Name Tip Paulino Attending Physician Fredy Benjamin MD Current Medications Medications (Trade) Dose Ordered Sig/Tricia Route PRN Reason Start Time Stop Time Status Last Admin Dose Admin Acetaminophen (Tylenol) 650 mg Q6H PRN ORAL Mild Pain/Temp > 100.5 08/10/16 12:45 09/09/16 12:44 Al Hydroxide/Mg Hydroxide (Mylanta II) 30 ml Q6H PRN ORAL dyspepsia 08/10/16 08:15 09/09/16 08:14 08/10/16 20:16 Al Hydroxide/Mg Hydroxide (Mylanta) 30 ml QIDPRN PRN ORAL DYSPEPSIA 08/10/16 17:45 09/09/16 17:44 Albuterol/ Ipratropium (DuoNeb 0.5-3(2.5)mg/3ml) 3 ml Q4H PRN INH Shortness of Breath 08/10/16 08:15 08/15/16 08:14 Albuterol/ Ipratropium (DuoNeb 0.5-3(2.5)mg/3ml) 3 ml Q8HRT INH 08/10/16 15:00 08/15/16 14:59 08/12/16 07:47 Apixaban (Eliquis) 2.5 mg BID ORAL 08/10/16 09:30 09/09/16 09:29 08/12/16 08:47 Aspirin (ASA) 81 mg DAILY ORAL 08/10/16 09:00 09/09/16 08:59 08/12/16 08:46 Bisacodyl (Dulcolax) 10 mg HSPRN PRN RECTAL Constipation 08/10/16 08:15 09/09/16 08:14 Dextrose (Dextrose 50%) STAT PRN IV Hypoglycemia 08/10/16 08:15 09/09/16 08:14 Docusate Sodium (Colace) 100 mg EVERY 12 HOURS ORAL 08/10/16 09:00 09/09/16 08:59 08/12/16 08:46 Furosemide (Lasix) 20 mg DAILY IV 08/10/16 12:00 09/09/16 11:59 08/12/16 08:48 Magnesium Hydroxide (Mom) 30 ml HSPRN PRN ORAL Constipation 08/10/16 08:15 09/09/16 08:14 Nifedipine (Procardia XL) 90 mg DAILY ORAL 08/10/16 09:00 09/09/16 08:59 08/12/16 08:47 Nitroglycerin (Ntg) 0.4 mg Q5M X 3 DOSES PRN SL Prn Chest Pain 08/10/16 08:15 09/09/16 08:14 Ondansetron HCl (Zofran) 4 mg Q6H PRN IVP Nausea & Vomiting 08/10/16 08:15 09/09/16 08:14 Pantoprazole (Protonix) 40 mg DAILY ORAL 08/10/16 09:00 09/09/16 08:59 08/12/16 08:47 Polyethylene Glycol (Miralax) 17 gm HSPRN PRN ORAL Constipation 08/10/16 08:15 09/09/16 08:14 Pregabalin (Lyrica) 25 mg BID ORAL 08/10/16 09:00 09/09/16 08:59 08/11/16 17:45 Zolpidem Tartrate (Ambien) 10 mg BEDTIME PRN ORAL Insomnia 08/10/16 08:15 09/09/16 08:14 08/11/16 00:01 Allergies: Coded Allergies: No Known Allergies (Verified , 03/30/09) ROS Limited/Unobtainable: No Constitutional: Reports: no symptoms HEENT: Reports: no symptoms Cardiovascular: Reports: no symptoms Respiratory: Reports: shortness of breath Gastrointestinal/Abdominal: Reports: no symptoms Genitourinary: Reports: no symptoms Neurologic/Psychiatric: Reports: no symptoms Subjective 86 YO F admitted with shortness of breath. Now Congestive heart failure/COPD exacerbation. Objective Last Vital Signs Date Time Temp Pulse Resp B/P Pulse Ox O2 Delivery O2 Flow Rate FiO2 08/12/16 08:47 85 119/59 08/12/16 08:00 96.8 18 95 Room Air 08/12/16 07:59 21 Laboratory Tests Test 08/12/16 05:20 White Blood Count 7.2 K/UL (4.8-10.8) Red Blood Count 4.46 M/UL (4.20-5.40) Hemoglobin 13.9 G/DL (12.0-16.0) Hematocrit 42.1 % (37.0-47.0) Mean Corpuscular Volume 94 FL (80-99) Mean Corpuscular Hemoglobin 31.2 PG (27.0-31.0) H Mean Corpuscular Hemoglobin Concent 33.0 G/DL (32.0-36.0) Red Cell Distribution Width 13.9 % (11.6-14.8) Platelet Count 233 K/UL (150-450) Mean Platelet Volume 7.5 FL (6.5-10.1) Neutrophils (%) (Auto) 66.1 % (45.0-75.0) Lymphocytes (%) (Auto) 20.9 % (20.0-45.0) Monocytes (%) (Auto) 10.1 % (1.0-10.0) H Eosinophils (%) (Auto) 1.9 % (0.0-3.0) Basophils (%) (Auto) 1.0 % (0.0-2.0) Sodium Level 141 mEQ/L (135-145) Potassium Level 4.0 mEQ/L (3.4-4.9) Chloride Level 98 mEQ/L (98-107) Carbon Dioxide Level 25 mEQ/L (20-30) Anion Gap 18 (5-15) H Blood Urea Nitrogen 20 mg/dL (7-23) Creatinine 1.4 mg/dL (0.5-0.9) H Estimat Glomerular Filtration Rate mL/min (>60) Glucose Level 90 mg/dL (74-106) Calcium Level 10.0 mg/dL (8.6-10.2) Total Bilirubin 0.4 mg/dL (0.0-1.2) Aspartate Amino Transf (AST/SGOT) 13 U/L (5-40) Alanine Aminotransferase (ALT/SGPT) 6 U/L (3-33) Alkaline Phosphatase 69 U/L (35-104) Pro-B-Type Natriuretic Peptide 920 pg/mL (0-450) H Total Protein 7.2 g/dL (6.6-8.7) Albumin 3.4 g/dL (3.5-5.2) L Globulin 3.8 g/dL Albumin/Globulin Ratio 0.8 (1.0-2.7) L Microbiology Date/Time Source Procedure Growth Status 08/10/16 04:07 Blood Blood Culture - Preliminary NO GROWTH AFTER 48 HOURS Resulted 08/10/16 03:54 Blood Blood Culture - Preliminary NO GROWTH AFTER 48 HOURS Resulted Intake and Output 08/11/16 08/12/16 19:00 07:00 Intake Total 460 ml 350 ml Output Total 300 ml 1000 ml Balance 160 ml -650 ml Intake Oral 460 ml 350 ml Output Urine Total 300 ml 1000 ml Objective GENERAL: The patient awake and responsive, no acute distress. HEAD AND NECK: Pupils are reactive to light. Extraocular movements are intact. Neck was supple. No JVD. LUNGS: Good air entry. No wheeze or rales. HEART: S1 and S2. Regular. No murmur , pacemaker@ LCW ABDOMEN: Soft, nondistended, and nontender. No rebound tenderness. EXTREMITIES: No cyanosis or clubbing. Trace edema around ankle. NEUROLOGIC: Cranial nerves II through XII are grossly intact. The patient is moving all extremities. Gait is steady with a walker. Assessment/Plan Assessment/Plan ASSESSMENT: 1. Shortness of breath possible acute chronic obstructive pulmonary disease exacerbation as well as acute congestive heart failure. 2. Hypertension. 3. Dyslipidemia. 4. History of bladder cancer. 5. Degenerative joint disease of cervical spine. 6. Weight loss. PLAN: On telemetry. Dr. Craig, Pulmonary Critical Care and Dr. Gamez from Cardiology DVT prophylaxis: Eliquis monitor laboratory closely, PT evaluation, Nebulizer treatment. Code status: Full Code CT chest / abdomen / Pelvic Await adenosine cardiac stress test-see cardiology note. TIP PAULINO Aug 12, 2016 10:40
--- NOTE | 2016-08-12 10:51 | Cardiology Report ---
APPROVED REPORT EKG Measurement Heart [id number] NM [id number] Sinus rhythm with 1st degree AV block possible atrial sensing ventricular pacing
[2016-08-12 11:26] VITALS: BP 122/57
--- NOTE | 2016-08-12 13:52 | Pulmonology Progress Note ---
Assessment/Plan Problems: (1) Congestive heart failure (2) COPD (chronic obstructive pulmonary disease) (3) Sick sinus syndrome (4) Pacemaker Assessment/Plan improving check echo cxr much better check bnp in am intake /output -300 hold lasix 20 mg b/o increasing creatinine, cxr is clear now check electrolytes on Apixiban and Aspirin Subjective ROS Limited/Unobtainable: No Interval Events: scheduled for stress testing Allergies: Coded Allergies: No Known Allergies (Verified , 03/30/09) Objective Last 24 Hour Vital Signs Date Time Temp Pulse Resp B/P Pulse Ox O2 Delivery O2 Flow Rate FiO2 08/12/16 11:26 97.1 91 18 122/57 96 Room Air 08/12/16 08:47 85 119/59 08/12/16 08:00 90 08/12/16 08:00 96.8 85 18 119/59 95 Room Air 08/12/16 07:59 99 16 96 Room Air 21 08/12/16 07:47 98 19 96 Room Air 21 08/12/16 04:08 98.4 79 18 129/78 96 Room Air 08/12/16 04:00 80 08/12/16 01:05 98.8 84 19 120/57 98 Room Air 08/11/16 23:54 89 18 100 Room Air 08/11/16 23:46 79 17 95 Room Air 08/11/16 20:00 84 08/11/16 20:00 97.0 69 18 118/58 97 Room Air 08/11/16 16:10 97.5 86 18 113/50 98 Room Air 08/11/16 16:00 92 08/11/16 14:40 86 18 100 Room Air 08/11/16 14:39 88 17 100 Room Air Intake and Output 08/11/16 08/12/16 19:00 07:00 Intake Total 460 ml 350 ml Output Total 300 ml 1000 ml Balance 160 ml -650 ml Intake Oral 460 ml 350 ml Output Urine Total 300 ml 1000 ml General Appearance: WD/WN HEENT: normocephalic, anicteric Respiratory/Chest: chest wall non-tender, lungs clear Cardiovascular: normal peripheral pulses, normal rate Abdomen: normal bowel sounds, soft, non tender Genitourinary: normal external genitalia Skin: no rash Musculoskeletal: normal muscle bulk Microbiology Date/Time Source Procedure Growth Status 08/10/16 04:07 Blood Blood Culture - Preliminary NO GROWTH AFTER 48 HOURS Resulted 08/10/16 03:54 Blood Blood Culture - Preliminary NO GROWTH AFTER 48 HOURS Resulted Laboratory Tests 08/12/16 05:20: White Blood Count 7.2, Red Blood Count 4.46, Hemoglobin 13.9, Hematocrit 42.1, Mean Corpuscular Volume 94, Mean Corpuscular Hemoglobin 31.2H, Mean Corpuscular Hemoglobin Concent 33.0, Red Cell Distribution Width 13.9, Platelet Count 233, Mean Platelet Volume 7.5, Neutrophils (%) (Auto) 66.1, Lymphocytes (%) (Auto) 20.9, Monocytes (%) (Auto) 10.1H, Eosinophils (%) (Auto) 1.9, Basophils (%) ( Auto) 1.0, Sodium Level 141, Potassium Level 4.0, Chloride Level 98, Carbon Dioxide Level 25, Anion Gap 18H, Blood Urea Nitrogen 20, Creatinine 1.4H, Estimat Glomerular Filtration Rate , Glucose Level 90, Calcium Level 10.0, Total Bilirubin 0.4, Aspartate Amino Transf (AST/SGOT) 13, Alanine Aminotransferase (ALT/SGPT) 6, Alkaline Phosphatase 69, Pro-B-Type Natriuretic Peptide 920H, Total Protein 7.2, Albumin 3.4L, Globulin 3.8, Albumin/Globulin Ratio 0.8L Current Medications Medications (Trade) Dose Ordered Sig/Tricia Route PRN Reason Start Time Stop Time Status Last Admin Dose Admin Acetaminophen (Tylenol) 650 mg Q6H PRN ORAL Mild Pain/Temp > 100.5 08/10/16 12:45 09/09/16 12:44 Al Hydroxide/Mg Hydroxide (Mylanta II) 30 ml Q6H PRN ORAL dyspepsia 08/10/16 08:15 09/09/16 08:14 08/10/16 20:16 Al Hydroxide/Mg Hydroxide (Mylanta) 30 ml QIDPRN PRN ORAL DYSPEPSIA 08/10/16 17:45 09/09/16 17:44 Albuterol/ Ipratropium (DuoNeb 0.5-3(2.5)mg/3ml) 3 ml Q4H PRN INH Shortness of Breath 08/10/16 08:15 08/15/16 08:14 Albuterol/ Ipratropium (DuoNeb 0.5-3(2.5)mg/3ml) 3 ml Q8HRT INH 08/10/16 15:00 08/15/16 14:59 08/12/16 07:47 Apixaban (Eliquis) 2.5 mg BID ORAL 08/10/16 09:30 09/09/16 09:29 08/12/16 08:47 Aspirin (ASA) 81 mg DAILY ORAL 08/10/16 09:00 09/09/16 08:59 08/12/16 08:46 Bisacodyl (Dulcolax) 10 mg HSPRN PRN RECTAL Constipation 08/10/16 08:15 09/09/16 08:14 Dextrose (Dextrose 50%) STAT PRN IV Hypoglycemia 08/10/16 08:15 09/09/16 08:14 Docusate Sodium (Colace) 100 mg EVERY 12 HOURS ORAL 08/10/16 09:00 09/09/16 08:59 08/12/16 08:46 Furosemide (Lasix) 20 mg DAILY IV 08/10/16 12:00 09/09/16 11:59 08/12/16 08:48 Magnesium Hydroxide (Mom) 30 ml HSPRN PRN ORAL Constipation 08/10/16 08:15 09/09/16 08:14 Nifedipine (Procardia XL) 90 mg DAILY ORAL 08/10/16 09:00 09/09/16 08:59 08/12/16 08:47 Nitroglycerin (Ntg) 0.4 mg Q5M X 3 DOSES PRN SL Prn Chest Pain 08/10/16 08:15 09/09/16 08:14 Ondansetron HCl (Zofran) 4 mg Q6H PRN IVP Nausea & Vomiting 08/10/16 08:15 09/09/16 08:14 Pantoprazole (Protonix) 40 mg DAILY ORAL 08/10/16 09:00 09/09/16 08:59 08/12/16 08:47 Polyethylene Glycol (Miralax) 17 gm HSPRN PRN ORAL Constipation 08/10/16 08:15 09/09/16 08:14 Pregabalin (Lyrica) 25 mg BID ORAL 08/10/16 09:00 09/09/16 08:59 08/11/16 17:45 Zolpidem Tartrate (Ambien) 10 mg BEDTIME PRN ORAL Insomnia 08/10/16 08:15 09/09/16 08:14 08/11/16 00:01 AYDE ASHLEY Aug 12, 2016 13:52
[2016-08-12 16:00] VITALS: BP 133/93
--- NOTE | 2016-08-12 18:07 | Cardiology Progress Note ---
Assessment/Plan Assessment/Plan improved does not want any further cardiac work up, says she is fine Subjective Subjective refused stress test had it before and afraid of it, it causes palpitations she thinks the test is dangerous she feels better, no "gas', but has mild dyspnea Objective Last 24 Hour Vital Signs Date Time Temp Pulse Resp B/P Pulse Ox O2 Delivery O2 Flow Rate FiO2 08/12/16 16:00 104 08/12/16 16:00 97.7 100 20 133/93 94 Room Air 08/12/16 12:00 94 08/12/16 11:26 97.1 91 18 122/57 96 Room Air 08/12/16 08:47 85 119/59 08/12/16 08:00 90 08/12/16 08:00 96.8 85 18 119/59 95 Room Air 08/12/16 07:59 99 16 96 Room Air 21 08/12/16 07:47 98 19 96 Room Air 21 08/12/16 04:08 98.4 79 18 129/78 96 Room Air 08/12/16 04:00 80 08/12/16 01:05 98.8 84 19 120/57 98 Room Air 08/11/16 23:54 89 18 100 Room Air 08/11/16 23:46 79 17 95 Room Air 08/11/16 20:00 84 08/11/16 20:00 97.0 69 18 118/58 97 Room Air General Appearance: no apparent distress, alert EENT: PERRL/EOMI Neck: supple Rhythm: other - a sensed v apced Cardiovascular: regular rhythm Respiratory/Chest: rhonchi - bilaterally Abdomen: soft Extremities: no swelling Intake and Output 08/11/16 08/12/16 19:00 07:00 Intake Total 460 ml 350 ml Output Total 300 ml 1000 ml Balance 160 ml -650 ml Intake Oral 460 ml 350 ml Output Urine Total 300 ml 1000 ml Laboratory Tests Test 08/12/16 05:20 White Blood Count 7.2 K/UL (4.8-10.8) Red Blood Count 4.46 M/UL (4.20-5.40) Hemoglobin 13.9 G/DL (12.0-16.0) Hematocrit 42.1 % (37.0-47.0) Mean Corpuscular Volume 94 FL (80-99) Mean Corpuscular Hemoglobin 31.2 PG (27.0-31.0) H Mean Corpuscular Hemoglobin Concent 33.0 G/DL (32.0-36.0) Red Cell Distribution Width 13.9 % (11.6-14.8) Platelet Count 233 K/UL (150-450) Mean Platelet Volume 7.5 FL (6.5-10.1) Neutrophils (%) (Auto) 66.1 % (45.0-75.0) Lymphocytes (%) (Auto) 20.9 % (20.0-45.0) Monocytes (%) (Auto) 10.1 % (1.0-10.0) H Eosinophils (%) (Auto) 1.9 % (0.0-3.0) Basophils (%) (Auto) 1.0 % (0.0-2.0) Sodium Level 141 mEQ/L (135-145) Potassium Level 4.0 mEQ/L (3.4-4.9) Chloride Level 98 mEQ/L (98-107) Carbon Dioxide Level 25 mEQ/L (20-30) Anion Gap 18 (5-15) H Blood Urea Nitrogen 20 mg/dL (7-23) Creatinine 1.4 mg/dL (0.5-0.9) H Estimat Glomerular Filtration Rate mL/min (>60) Glucose Level 90 mg/dL (74-106) Calcium Level 10.0 mg/dL (8.6-10.2) Total Bilirubin 0.4 mg/dL (0.0-1.2) Aspartate Amino Transf (AST/SGOT) 13 U/L (5-40) Alanine Aminotransferase (ALT/SGPT) 6 U/L (3-33) Alkaline Phosphatase 69 U/L (35-104) Pro-B-Type Natriuretic Peptide 920 pg/mL (0-450) H Total Protein 7.2 g/dL (6.6-8.7) Albumin 3.4 g/dL (3.5-5.2) L Globulin 3.8 g/dL Albumin/Globulin Ratio 0.8 (1.0-2.7) L Microbiology Date/Time Source Procedure Growth Status 08/10/16 04:07 Blood Blood Culture - Preliminary NO GROWTH AFTER 48 HOURS Resulted 08/10/16 03:54 Blood Blood Culture - Preliminary NO GROWTH AFTER 48 HOURS Resulted MAGUE DELEON Aug 12, 2016 18:07
[2016-08-12 22:38] VITALS: BP 130/89
[2016-08-13] MEDS ORDERED: Nitroglycerin Subl 0.4mg tab (Bottle Of 25) SL PRN (01:00)
[2016-08-13] MEDS: Zolpidem 5mg tab ORAL PRN ×2 (02:10→23:49)
[2016-08-13] MEDS ORDERED: Mylanta II UD 30ml ORAL PRN (02:15)
[2016-08-13 04:00] VITALS: BP 128/61
[2016-08-13] MEDS ORDERED: DuoNeb 0.5-3(2.5)mg/3ml neb INH PRN (04:15)
[2016-08-13] MEDS: DuoNeb 0.5-3(2.5)mg/3ml neb INH SCH ×3 (07:00→23:30)
[2016-08-13 08:00] VITALS: BP 126/53
[2016-08-13] MEDS ORDERED: Milk of Magnesia 30ml Ud ORAL PRN (08:15)
[2016-08-13] MEDS ORDERED: Miralax 17gm pkt ORAL PRN (08:15)
[2016-08-13 09:30] LABS: BASOPHILS % (AUTO) 0.9 % (0.0-2.0); EOSINOPHILS % (AUTO) 3.6 % (0.0-3.0); LYMPHOCYTES % (AUTO) 14.5 % (20.0-45.0); MEAN CORPUSCULAR HEMOGLOBIN 31.1 PG (27.0-31.0); MEAN CORPUSCULAR HGB CONC 31.8 G/DL (32.0-36.0); MEAN CORPUSCULAR VOLUME 98 FL (80-99); MEAN PLATELET VOLUME 6.5 FL (6.5-10.1); MONOCYTES % (AUTO) 10.3 % (1.0-10.0); NEUTROPHILS % (AUTO) 70.6 % (45.0-75.0); PLATELET COUNT 202 K/UL (150-450); RED BLOOD COUNT 4.06 M/UL (4.20-5.40); RED CELL DISTRIBUTION WIDTH 13.5 % (11.6-14.8); WHITE BLOOD COUNT 6.5 K/UL (4.8-10.8)
[2016-08-13 09:33] LABS: ANION GAP 15 (5-15); CALCIUM 9.6 mg/dL (8.6-10.2); CARBON DIOXIDE 27 mEQ/L (20-30); CHLORIDE 101 mEQ/L (98-107); CREATININE 1.6 mg/dL (0.5-0.9); HEMOLYSIS 15; POTASSIUM 3.8 mEQ/L (3.4-4.9); SODIUM 143 mEQ/L (135-145)
[2016-08-13] MEDS: Eliquis 2.5mg tablet ORAL SCH ×2 (09:52→20:23)
[2016-08-13] MEDS: Aspirin Baby 81mg ORAL SCH (09:52)
[2016-08-13] MEDS: Docusate 100mg cap ORAL SCH ×2 (09:53→20:23)
[2016-08-13] MEDS: Lyrica 25mg cap ORAL SCH ×2 (09:53→20:25)
[2016-08-13] MEDS ORDERED: Influenza Virus Vaccine 0.5ml IM ONE (10:30)
[2016-08-13 12:00] VITALS: BP 118/51
--- NOTE | 2016-08-13 12:56 | Diagnostic Imaging Report ---
Indication: Shortness of breath and abdominal tenderness Technique: Patient ingested oral contrast administration nonionic contrast. Multiphasic spiral acquisitions obtained through the chest, abdomen, and pelvis. Multiplanar reconstructions were generated. Total dose length product 1518 mGycm. CTDIvol(s) 8, 8, 48, 18, 16 mGy. Radiation dose was minimized using automated exposure control Comparison: Chest CT dated 12/09/2013, abdomen pelvis CT dated 04/21/2009 Findings: Chest: A single cystic space or bulla is seen in the left upper lobe. There are some compressive and dependent atelectatic changes at both lung bases. The lungs are otherwise clear, without infiltrates, effusions, masses, or nodules. Granulomatous calcification is again demonstrated the right lung base. Exam was not protocoled for exclusion of pulmonary embolus. Nonetheless, pulmonary arteries are well opacified, and no gross evidence of pulmonary embolus is demonstrated. The heart is mildly enlarged. There is minimal anterior wall pericardial thickening versus fluid. There is a pacemaker. The esophagus is diffusely dilated, filled with gas and contrast, but no definite distal esophageal wall thickening or obstructing lesion is demonstrated. No mediastinal or hilar mass or adenopathy no axillary or chest wall mass or adenopathy. There is a 8mm nodule in the lower pole of the left thyroid lobe. There are coronary artery calcifications. There is no significant or change from previous study Abdomen pelvis: There is colonic diverticulosis. No evidence of diverticulitis. No small bowel distention or small bowel wall thickening. The appendix is not definitely demonstrated, but there are no findings to suggest acute appendicitis. No free or loculated intraperitoneal air or fluid is demonstrated. The liver is unremarkable. The gallbladder contains gallstones. No biliary ductal dilatation. The pancreas is slightly atrophic. The spleen, adrenals are unremarkable. The right kidney demonstrates one or more subcentimeter low-attenuation lesions which are too small to characterize. Left kidney contains multiple cysts. No retroperitoneal or mesenteric mass or adenopathy. The abdominal aorta demonstrates some focal saccular ectasia which is not quite aneurysmal, measuring 2.8 cm diameter, with some mural thrombus. The uterus demonstrates thickening of the endometrium, which measures 11 mm thick. No adnexal. There is a Araujo catheter within the bladder. There is a right hip prosthesis. There are degenerative changes of the lumbar spine. There is anterior offset of L4 on L5 and posterior offset of L5 on S1. Impression: CHEST: No definite or significant abnormality Dilated gas and contrast-filled esophagus, no definite downstream obstructive lesion. Probably on the basis of age-related changes, although occult downstream obstruction lesion cannot be completely ruled out Single cystic space or bulla in the left upper lobe Evidence of old granulomatous disease Cardiomegaly Pacemaker 8mm left lower pole thyroid nodule incidentally noted. No further followup needed ABDOMEN PELVIS: No acute abnormality Endometrial thickening. Consider pelvic and endovaginal ultrasound for further evaluation. Diverticulosis without evidence of diverticulitis Cholelithiasis Left renal cysts. Right renal low-attenuation lesions are too small to characterize, most likely benign simple cortical cysts. 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
--- NOTE | 2016-08-13 12:56 | Diagnostic Imaging Report ---
Indication: DYSPNEA Technique: One view of the chest Comparison: 08/10/2016 Findings: Persistent marked elevation of the right hemidiaphragm. No definite acute infiltrates, effusions or congestion. Borderline cardiomegaly persists. Previously demonstrated interstitial congestion is no longer evident. Left chest pacemaker is again demonstrated Impression: Acute process. Findings as noted
[2016-08-13 16:00] VITALS: BP 116/52
--- NOTE | 2016-08-13 17:19 | Pulmonology Progress Note ---
Assessment/Plan Problems: (1) Congestive heart failure (2) COPD (chronic obstructive pulmonary disease) (3) Sick sinus syndrome (4) Pacemaker Assessment/Plan improving echo noted cxr improving check bnp in am check electrolytes on Apixiban and Aspirin Subjective ROS Limited/Unobtainable: No Interval Events: doing better Allergies: Coded Allergies: No Known Allergies (Verified , 03/30/09) Objective Last 24 Hour Vital Signs Date Time Temp Pulse Resp B/P Pulse Ox O2 Delivery O2 Flow Rate FiO2 08/13/16 16:00 98.2 86 22 116/52 94 Room Air 08/13/16 15:00 96 Room Air 08/13/16 15:00 Room Air 08/13/16 12:00 96.4 89 18 118/51 94 Room Air 08/13/16 09:52 96 128/61 08/13/16 08:00 97.3 92 18 126/53 95 Room Air 08/13/16 07:00 Room Air 08/13/16 07:00 96 Room Air 08/13/16 04:00 96.8 89 20 128/61 99 Nasal Cannula 2.0 08/12/16 23:38 97 20 99 Room Air 21 08/12/16 23:37 96 20 97 Room Air 21 08/12/16 22:38 97.6 96 20 130/89 96 Room Air 08/12/16 20:00 93 Intake and Output 08/12/16 08/13/16 19:00 07:00 Intake Total 240 ml Output Total 175 ml 750 ml Balance 65 ml -750 ml Intake Oral 240 ml Output Urine Total 175 ml 750 ml General Appearance: cachetic HEENT: normocephalic, atraumatic Respiratory/Chest: chest wall non-tender, lungs clear Cardiovascular: normal peripheral pulses, normal rate Abdomen: normal bowel sounds, soft, non tender Genitourinary: normal external genitalia Extremities: no clubbing Skin: no rash Laboratory Tests 08/13/16 08:45: White Blood Count 6.5, Red Blood Count 4.06L, Hemoglobin 12.6, Hematocrit 39.6, Mean Corpuscular Volume 98, Mean Corpuscular Hemoglobin 31.1H, Mean Corpuscular Hemoglobin Concent 31.8L, Red Cell Distribution Width 13.5, Platelet Count 202, Mean Platelet Volume 6.5, Neutrophils (%) (Auto) 70.6, Lymphocytes (%) (Auto) 14.5L, Monocytes (%) (Auto) 10.3H, Eosinophils (%) (Auto) 3.6H, Basophils (%) ( Auto) 0.9, Sodium Level 143, Potassium Level 3.8, Chloride Level 101, Carbon Dioxide Level 27, Anion Gap 15, Blood Urea Nitrogen 21, Creatinine 1.6H, Estimat Glomerular Filtration Rate , Glucose Level 140H, Calcium Level 9.6, Pro- B-Type Natriuretic Peptide 668H Current Medications Medications (Trade) Dose Ordered Sig/Tricia Route PRN Reason Start Time Stop Time Status Last Admin Dose Admin Acetaminophen (Tylenol) 650 mg Q6H PRN ORAL Mild Pain/Temp > 100.5 08/13/16 06:45 09/12/16 06:44 Al Hydroxide/Mg Hydroxide (Mylanta II) 30 ml Q6H PRN ORAL dyspepsia 08/13/16 02:15 09/12/16 02:14 Albuterol/ Ipratropium (DuoNeb 0.5-3(2.5)mg/3ml) 3 ml Q4H PRN INH Shortness of Breath 08/13/16 04:15 08/18/16 04:14 Albuterol/ Ipratropium (DuoNeb 0.5-3(2.5)mg/3ml) 3 ml Q8HRT INH 08/13/16 07:00 08/18/16 06:59 Apixaban (Eliquis) 2.5 mg BID@0900,2100 ORAL 08/13/16 09:00 09/12/16 08:59 08/13/16 09:52 Aspirin (ASA) 81 mg DAILY ORAL 08/13/16 09:00 09/12/16 08:59 08/13/16 09:52 Bisacodyl (Dulcolax) 10 mg HSPRN PRN RECTAL Constipation 08/13/16 08:15 09/12/16 08:14 Dextrose (Dextrose 50%) STAT PRN IV Hypoglycemia 08/13/16 08:15 09/12/16 08:14 Docusate Sodium (Colace) 100 mg EVERY 12 HOURS ORAL 08/13/16 09:00 09/12/16 08:59 08/13/16 09:53 Magnesium Hydroxide (Mom) 30 ml HSPRN PRN ORAL Constipation 08/13/16 08:15 09/12/16 08:14 Nifedipine (Procardia XL) 90 mg DAILY ORAL 08/13/16 09:00 09/12/16 08:59 08/13/16 09:52 Nitroglycerin (Ntg) 0.4 mg Q5M X 3 DOSES PRN SL Prn Chest Pain 08/13/16 01:00 09/12/16 00:59 Ondansetron HCl (Zofran) 4 mg Q6H PRN IVP Nausea & Vomiting 08/13/16 02:15 09/12/16 02:14 Pantoprazole (Protonix) 40 mg DAILY ORAL 08/13/16 09:00 09/12/16 08:59 08/13/16 09:53 Polyethylene Glycol (Miralax) 17 gm HSPRN PRN ORAL Constipation 08/13/16 08:15 09/12/16 08:14 Pregabalin (Lyrica) 25 mg BID@0900,2100 ORAL 08/13/16 09:00 09/12/16 08:59 08/13/16 09:53 Zolpidem Tartrate (Ambien) 10 mg BEDTIME PRN ORAL Insomnia 08/13/16 02:00 09/12/16 01:59 08/13/16 02:10 AYDE ASHLEY Aug 13, 2016 17:19
--- NOTE | 2016-08-13 17:45 | Internal Med Progress Note ---
Subjective Date of Service: Aug 13, 2016 Physician Name Paulino,Leslie Attending Physician Fredy Benjamin MD Current Medications Medications (Trade) Dose Ordered Sig/Tricia Route PRN Reason Start Time Stop Time Status Last Admin Dose Admin Acetaminophen (Tylenol) 650 mg Q6H PRN ORAL Mild Pain/Temp > 100.5 08/13/16 06:45 09/12/16 06:44 Al Hydroxide/Mg Hydroxide (Mylanta II) 30 ml Q6H PRN ORAL dyspepsia 08/13/16 02:15 09/12/16 02:14 Albuterol/ Ipratropium (DuoNeb 0.5-3(2.5)mg/3ml) 3 ml Q4H PRN INH Shortness of Breath 08/13/16 04:15 08/18/16 04:14 Albuterol/ Ipratropium (DuoNeb 0.5-3(2.5)mg/3ml) 3 ml Q8HRT INH 08/13/16 07:00 08/18/16 06:59 Apixaban (Eliquis) 2.5 mg BID@0900,2100 ORAL 08/13/16 09:00 09/12/16 08:59 08/13/16 09:52 Aspirin (ASA) 81 mg DAILY ORAL 08/13/16 09:00 09/12/16 08:59 08/13/16 09:52 Bisacodyl (Dulcolax) 10 mg HSPRN PRN RECTAL Constipation 08/13/16 08:15 09/12/16 08:14 Dextrose (Dextrose 50%) STAT PRN IV Hypoglycemia 08/13/16 08:15 09/12/16 08:14 Docusate Sodium (Colace) 100 mg EVERY 12 HOURS ORAL 08/13/16 09:00 09/12/16 08:59 08/13/16 09:53 Magnesium Hydroxide (Mom) 30 ml HSPRN PRN ORAL Constipation 08/13/16 08:15 09/12/16 08:14 Nifedipine (Procardia XL) 90 mg DAILY ORAL 08/13/16 09:00 09/12/16 08:59 08/13/16 09:52 Nitroglycerin (Ntg) 0.4 mg Q5M X 3 DOSES PRN SL Prn Chest Pain 08/13/16 01:00 09/12/16 00:59 Ondansetron HCl (Zofran) 4 mg Q6H PRN IVP Nausea & Vomiting 08/13/16 02:15 09/12/16 02:14 Pantoprazole (Protonix) 40 mg DAILY ORAL 08/13/16 09:00 09/12/16 08:59 08/13/16 09:53 Polyethylene Glycol (Miralax) 17 gm HSPRN PRN ORAL Constipation 08/13/16 08:15 09/12/16 08:14 Pregabalin (Lyrica) 25 mg BID@0900,2100 ORAL 08/13/16 09:00 09/12/16 08:59 08/13/16 09:53 Zolpidem Tartrate (Ambien) 10 mg BEDTIME PRN ORAL Insomnia 08/13/16 02:00 09/12/16 01:59 08/13/16 02:10 Allergies: Coded Allergies: No Known Allergies (Verified , 03/30/09) ROS Limited/Unobtainable: No Constitutional: Reports: no symptoms HEENT: Reports: no symptoms Cardiovascular: Reports: no symptoms Respiratory: Reports: shortness of breath Gastrointestinal/Abdominal: Reports: no symptoms Genitourinary: Reports: no symptoms Neurologic/Psychiatric: Reports: no symptoms Subjective 86 YO F admitted with shortness of breath. Now Congestive heart failure/COPD exacerbation. Objective Last Vital Signs Date Time Temp Pulse Resp B/P Pulse Ox O2 Delivery O2 Flow Rate FiO2 08/13/16 16:00 98.2 86 22 116/52 94 Room Air 08/13/16 04:00 2.0 08/12/16 23:38 21 Laboratory Tests Test 08/13/16 08:45 White Blood Count 6.5 K/UL (4.8-10.8) Red Blood Count 4.06 M/UL (4.20-5.40) L Hemoglobin 12.6 G/DL (12.0-16.0) Hematocrit 39.6 % (37.0-47.0) Mean Corpuscular Volume 98 FL (80-99) Mean Corpuscular Hemoglobin 31.1 PG (27.0-31.0) H Mean Corpuscular Hemoglobin Concent 31.8 G/DL (32.0-36.0) L Red Cell Distribution Width 13.5 % (11.6-14.8) Platelet Count 202 K/UL (150-450) Mean Platelet Volume 6.5 FL (6.5-10.1) Neutrophils (%) (Auto) 70.6 % (45.0-75.0) Lymphocytes (%) (Auto) 14.5 % (20.0-45.0) L Monocytes (%) (Auto) 10.3 % (1.0-10.0) H Eosinophils (%) (Auto) 3.6 % (0.0-3.0) H Basophils (%) (Auto) 0.9 % (0.0-2.0) Sodium Level 143 mEQ/L (135-145) Potassium Level 3.8 mEQ/L (3.4-4.9) Chloride Level 101 mEQ/L (98-107) Carbon Dioxide Level 27 mEQ/L (20-30) Anion Gap 15 (5-15) Blood Urea Nitrogen 21 mg/dL (7-23) Creatinine 1.6 mg/dL (0.5-0.9) H Estimat Glomerular Filtration Rate mL/min (>60) Glucose Level 140 mg/dL (74-106) H Calcium Level 9.6 mg/dL (8.6-10.2) Pro-B-Type Natriuretic Peptide 668 pg/mL (0-450) H Intake and Output 08/12/16 08/13/16 19:00 07:00 Intake Total 240 ml Output Total 175 ml 750 ml Balance 65 ml -750 ml Intake Oral 240 ml Output Urine Total 175 ml 750 ml Objective GENERAL: The patient awake and responsive, no acute distress. HEAD AND NECK: Pupils are reactive to light. Extraocular movements are intact. Neck was supple. No JVD. LUNGS: Good air entry. No wheeze or rales. HEART: S1 and S2. Regular. No murmur , pacemaker@ LCW ABDOMEN: Soft, nondistended, and nontender. No rebound tenderness. EXTREMITIES: No cyanosis or clubbing. Trace edema around ankle. NEUROLOGIC: Cranial nerves II through XII are grossly intact. The patient is moving all extremities. Gait is steady with a walker. Assessment/Plan Assessment/Plan ASSESSMENT: 1. Shortness of breath possible acute chronic obstructive pulmonary disease exacerbation as well as acute congestive heart failure. 2. Hypertension. 3. Dyslipidemia. 4. History of bladder cancer. 5. Degenerative joint disease of cervical spine. 6. Weight loss. PLAN: On telemetry. Dr. Craig, Pulmonary Critical Care and Dr. Gamez from Cardiology DVT prophylaxis: Eliquis monitor laboratory closely, PT evaluation, Nebulizer treatment. Code status: Full Code CT chest / abdomen / Pelvic Await adenosine cardiac stress test-see cardiology note. LESLIE PAULINO Aug 13, 2016 17:45
--- NOTE | 2016-08-13 18:28 | Cardiology Progress Note ---
Assessment/Plan Assessment/Plan stable from cardiac stndpoint, will sign off Subjective Subjective she feels better, no "gas', but has mild dyspnea and weakness denies palpitations Objective Last 24 Hour Vital Signs Date Time Temp Pulse Resp B/P Pulse Ox O2 Delivery O2 Flow Rate FiO2 08/13/16 16:00 98.2 86 22 116/52 94 Room Air 08/13/16 15:00 96 Room Air 08/13/16 15:00 Room Air 08/13/16 12:00 96.4 89 18 118/51 94 Room Air 08/13/16 09:52 96 128/61 08/13/16 08:00 97.3 92 18 126/53 95 Room Air 08/13/16 07:00 Room Air 08/13/16 07:00 96 Room Air 08/13/16 04:00 96.8 89 20 128/61 99 Nasal Cannula 2.0 08/12/16 23:38 97 20 99 Room Air 21 08/12/16 23:37 96 20 97 Room Air 21 08/12/16 22:38 97.6 96 20 130/89 96 Room Air 08/12/16 20:00 93 General Appearance: no apparent distress EENT: PERRL/EOMI Neck: no JVD Rhythm: other - paced Cardiovascular: regular rhythm Respiratory/Chest: rhonchi - bilaterally Abdomen: soft Extremities: no swelling Intake and Output 08/12/16 08/13/16 19:00 07:00 Intake Total 240 ml Output Total 175 ml 750 ml Balance 65 ml -750 ml Intake Oral 240 ml Output Urine Total 175 ml 750 ml Laboratory Tests Test 08/13/16 08:45 White Blood Count 6.5 K/UL (4.8-10.8) Red Blood Count 4.06 M/UL (4.20-5.40) L Hemoglobin 12.6 G/DL (12.0-16.0) Hematocrit 39.6 % (37.0-47.0) Mean Corpuscular Volume 98 FL (80-99) Mean Corpuscular Hemoglobin 31.1 PG (27.0-31.0) H Mean Corpuscular Hemoglobin Concent 31.8 G/DL (32.0-36.0) L Red Cell Distribution Width 13.5 % (11.6-14.8) Platelet Count 202 K/UL (150-450) Mean Platelet Volume 6.5 FL (6.5-10.1) Neutrophils (%) (Auto) 70.6 % (45.0-75.0) Lymphocytes (%) (Auto) 14.5 % (20.0-45.0) L Monocytes (%) (Auto) 10.3 % (1.0-10.0) H Eosinophils (%) (Auto) 3.6 % (0.0-3.0) H Basophils (%) (Auto) 0.9 % (0.0-2.0) Sodium Level 143 mEQ/L (135-145) Potassium Level 3.8 mEQ/L (3.4-4.9) Chloride Level 101 mEQ/L (98-107) Carbon Dioxide Level 27 mEQ/L (20-30) Anion Gap 15 (5-15) Blood Urea Nitrogen 21 mg/dL (7-23) Creatinine 1.6 mg/dL (0.5-0.9) H Estimat Glomerular Filtration Rate mL/min (>60) Glucose Level 140 mg/dL (74-106) H Calcium Level 9.6 mg/dL (8.6-10.2) Pro-B-Type Natriuretic Peptide 668 pg/mL (0-450) H MAGUE DELEON Aug 13, 2016 18:28
[2016-08-13 20:00] VITALS: BP 132/52
[2016-08-14] VITALS: BP 121/52
[2016-08-14 03:48] VITALS: BP 126/53
[2016-08-14 07:50] LABS: BASOPHILS % (AUTO) 1.7 % (0.0-2.0); LYMPHOCYTES % (AUTO) 22.4 % (20.0-45.0); MEAN CORPUSCULAR HEMOGLOBIN 30.7 PG (27.0-31.0); MEAN CORPUSCULAR HGB CONC 31.5 G/DL (32.0-36.0); MEAN CORPUSCULAR VOLUME 97 FL (80-99); MEAN PLATELET VOLUME 6.5 FL (6.5-10.1); NEUTROPHILS % (AUTO) 59.9 % (45.0-75.0); PLATELET COUNT 190 K/UL (150-450); RED BLOOD COUNT 3.92 M/UL (4.20-5.40); RED CELL DISTRIBUTION WIDTH 13.6 % (11.6-14.8); WHITE BLOOD COUNT 6.6 K/UL (4.8-10.8)
[2016-08-14] MEDS: DuoNeb 0.5-3(2.5)mg/3ml neb INH SCH ×3 (07:53→23:06)
[2016-08-14 07:58] LABS: ANION GAP 16 (5-15); CALCIUM 9.6 mg/dL (8.6-10.2); CARBON DIOXIDE 26 mEQ/L (20-30); CHLORIDE 100 mEQ/L (98-107); CREATININE 1.3 mg/dL (0.5-0.9); HEMOLYSIS 39; SODIUM 142 mEQ/L (135-145)
[2016-08-14 08:19] VITALS: BP 124/53
[2016-08-14] MEDS: Aspirin Baby 81mg ORAL SCH (08:29)
[2016-08-14] MEDS: Lyrica 25mg cap ORAL SCH ×2 (08:30→20:32)
[2016-08-14] MEDS: Eliquis 2.5mg tablet ORAL SCH ×2 (08:30→20:32)
[2016-08-14] MEDS: Docusate 100mg cap ORAL SCH ×2 (08:30→20:48)
[2016-08-14 11:42] VITALS: BP 117/50
--- NOTE | 2016-08-14 12:27 | Discharge Summary ---
Discharge Summary Hospital Course Date of Admission Aug 10, 2016 at 04:44 Date of Discharge Admitting Diagnosis chf exacerbation HPI Nanci Lyles is a 86 year old female who was admitted on Aug 10, 2016 at 04:44 for Cardiac Heart Failure Exacerbation Hospital Course Dictated for Int Daryl-Dr Benjamin no. [id number]. Discharge Discharge Disposition Patient was discharged to Discharge Diagnoses: LESLIE PAULINO Aug 14, 2016 12:27
[2016-08-14 16:00] VITALS: BP 130/55
--- NOTE | 2016-08-14 18:18 | Pulmonology Progress Note ---
Assessment/Plan Problems: (1) Congestive heart failure (2) COPD (chronic obstructive pulmonary disease) (3) Sick sinus syndrome (4) Pacemaker Assessment/Plan improving check echo check electrolytes on Apixiban and Aspirin dc planning Subjective ROS Limited/Unobtainable: No Interval Events: no new complains Allergies: Coded Allergies: No Known Allergies (Verified , 03/30/09) Objective Last 24 Hour Vital Signs Date Time Temp Pulse Resp B/P Pulse Ox O2 Delivery O2 Flow Rate FiO2 08/14/16 16:00 97.0 91 18 130/55 97 Room Air 08/14/16 15:38 88 18 97 Room Air 21 08/14/16 15:28 90 18 96 Room Air 21 08/14/16 11:42 97.6 78 20 117/50 97 Room Air 08/14/16 09:29 97.9 08/14/16 08:31 91 124/53 08/14/16 08:19 97.9 91 20 124/53 96 Room Air 08/14/16 08:06 83 18 96 Room Air 08/14/16 07:55 82 18 97 Room Air 21 08/14/16 03:48 97.6 93 18 126/53 96 Room Air 08/14/16 00:00 97.7 102 18 121/52 96 Room Air 08/13/16 23:34 85 18 98 Room Air 21 08/13/16 23:32 82 18 97 Room Air 21 08/13/16 20:14 97 18 Room Air 08/13/16 20:00 96.8 94 22 132/52 96 Room Air Intake and Output 08/13/16 08/14/16 19:00 07:00 Intake Total 760 ml 790 ml Output Total 200 ml 500 ml Balance 560 ml 290 ml Intake Oral 760 ml 790 ml Output Urine Total 200 ml 500 ml # Bowel Movements 1 General Appearance: cachetic HEENT: normocephalic Respiratory/Chest: chest wall non-tender, lungs clear Abdomen: normal bowel sounds, soft, non tender Extremities: no cyanosis Laboratory Tests 08/14/16 05:35: White Blood Count 6.6, Red Blood Count 3.92L, Hemoglobin 12.0, Hematocrit 38.2, Mean Corpuscular Volume 97, Mean Corpuscular Hemoglobin 30.7, Mean Corpuscular Hemoglobin Concent 31.5L, Red Cell Distribution Width 13.6, Platelet Count 190, Mean Platelet Volume 6.5, Neutrophils (%) (Auto) 59.9, Lymphocytes (%) (Auto) 22.4, Monocytes (%) (Auto) 12.0H, Eosinophils (%) (Auto) 4.0H, Basophils (%) ( Auto) 1.7, Sodium Level 142, Potassium Level 4.0, Chloride Level 100, Carbon Dioxide Level 26, Anion Gap 16H, Blood Urea Nitrogen 22, Creatinine 1.3H, Estimat Glomerular Filtration Rate , Glucose Level 83, Calcium Level 9.6 Current Medications Medications (Trade) Dose Ordered Sig/Tricia Route PRN Reason Start Time Stop Time Status Last Admin Dose Admin Acetaminophen (Tylenol) 650 mg Q6H PRN ORAL Mild Pain/Temp > 100.5 08/13/16 06:45 09/12/16 06:44 Al Hydroxide/Mg Hydroxide (Mylanta II) 30 ml Q6H PRN ORAL dyspepsia 08/13/16 02:15 09/12/16 02:14 Albuterol/ Ipratropium (DuoNeb 0.5-3(2.5)mg/3ml) 3 ml Q4H PRN INH Shortness of Breath 08/13/16 04:15 08/18/16 04:14 Albuterol/ Ipratropium (DuoNeb 0.5-3(2.5)mg/3ml) 3 ml Q8HRT INH 08/13/16 07:00 08/18/16 06:59 08/14/16 15:28 Apixaban (Eliquis) 2.5 mg BID@0900,2100 ORAL 08/13/16 09:00 09/12/16 08:59 08/14/16 08:30 Aspirin (ASA) 81 mg DAILY ORAL 08/13/16 09:00 09/12/16 08:59 08/14/16 08:29 Bisacodyl (Dulcolax) 10 mg HSPRN PRN RECTAL Constipation 08/13/16 08:15 09/12/16 08:14 Dextrose (Dextrose 50%) STAT PRN IV Hypoglycemia 08/13/16 08:15 09/12/16 08:14 Docusate Sodium (Colace) 100 mg EVERY 12 HOURS ORAL 08/13/16 09:00 09/12/16 08:59 08/14/16 08:30 Magnesium Hydroxide (Mom) 30 ml HSPRN PRN ORAL Constipation 08/13/16 08:15 09/12/16 08:14 Nifedipine (Procardia XL) 90 mg DAILY ORAL 08/13/16 09:00 09/12/16 08:59 08/13/16 09:52 Nitroglycerin (Ntg) 0.4 mg Q5M X 3 DOSES PRN SL Prn Chest Pain 08/13/16 01:00 09/12/16 00:59 Ondansetron HCl (Zofran) 4 mg Q6H PRN IVP Nausea & Vomiting 08/13/16 02:15 09/12/16 02:14 Pantoprazole (Protonix) 40 mg DAILY ORAL 08/13/16 09:00 09/12/16 08:59 08/14/16 08:33 Polyethylene Glycol (Miralax) 17 gm HSPRN PRN ORAL Constipation 08/13/16 08:15 09/12/16 08:14 Pregabalin (Lyrica) 25 mg BID@0900,2100 ORAL 08/13/16 09:00 09/12/16 08:59 08/14/16 08:30 Zolpidem Tartrate (Ambien) 10 mg BEDTIME PRN ORAL Insomnia 08/13/16 02:00 09/12/16 01:59 08/13/16 23:49 AYDE ASHLEY Aug 14, 2016 18:18
[2016-08-14 20:00] VITALS: BP 141/66
[2016-08-15] VITALS: BP 143/63
--- NOTE | 2016-08-15 01:09 | Discharge Summary ---
DATE OF ADMISSION: 08/10/2016 DATE OF DISCHARGE: 08/14/2016 ADMITTING DIAGNOSES: 1. Shortness of breath. 2. Cough. 3. Congestive heart failure. 4. Chronic obstructive pulmonary disease. 5. History of bladder cancer. 6. Hypertension. 7. Hypertensive coronary disease. 8. Sick sinus syndrome. 9. Spinal stenosis . 10. Pacemaker. 11. Hypercholesterolemia . DISCHARGE DIAGNOSES: 1. Shortness of breath. 2. Cough. 3. Acute on chronic congestive heart failure. 4. Chronic obstructive pulmonary disease. 5. Bladder cancer. 6. Hypertension. 7. Hypertensive coronary artery disease. 8. Sick sinus syndrome. 9. Spinal stenosis. 10. Pacemaker in situ. 11. Hypercholesterolemia. HOSPITAL COURSE BY PROBLEM LIST: 1. Shortness of breath/cough/acute on chronic congestive heart failure. A Cardiology consultation was obtained with Dr. Gatica. The patient received intravenous fluids. Congestive heart failure has now resolved. The patient will follow up with Dr. Gatica as an outpatient. 2. Chronic obstructive pulmonary disease. A Pulmonary consultation was obtained with Dr. Lj Craig. The patient was placed empirically on albuterol and Atrovent. The patient is to follow up with Dr. Craig as an outpatient. 3. History of bladder cancer. 4. Hypertension. The patient remained on Procardia XL 90 mg one tablet p.o. daily. The patient continues as an outpatient. 5. Hypertensive coronary disease as above. A Cardiology consultation was obtained with Dr. Balderas. The patient is to follow with Dr. Balderas as an outpatient. 6. Sick sinus syndrome. The patient previously received pacemaker. The patient is currently . The patient is to follow up with her primary care physician in one week. 7. Pacemaker in situ. 8. Spinal stenosis. 9. Hypercholesterolemia. The patient remained on Zocor 40 mg one tablet p.o. daily. The patient is to follow up with her primary care physician in one week. DISCHARGE MEDICATIONS: Please refer discharge medication list. DISCHARGE INSTRUCTIONS: The patient is discharged home today, 08/14/2016 with home health. Tip Parry M.D. DR: Xander JOB#: [id number] CC:
[2016-08-15 04:00] VITALS: BP 136/60
[2016-08-15] MEDS: DuoNeb 0.5-3(2.5)mg/3ml neb INH SCH ×2 (08:04→15:39)
[2016-08-15 08:14] VITALS: BP 124/55
[2016-08-15] MEDS: Docusate 100mg cap ORAL SCH (09:00)
[2016-08-15] MEDS: Aspirin Baby 81mg ORAL SCH (09:00)
[2016-08-15] MEDS: Eliquis 2.5mg tablet ORAL SCH (10:17)
[2016-08-15] MEDS: Lyrica 25mg cap ORAL SCH (10:18)
[2016-08-15 11:49] VITALS: BP 122/56
[2016-08-15 16:05] VITALS: BP 144/65
--- NOTE | 2016-08-15 18:32 | Internal Med Progress Note ---
Subjective Date of Service: Aug 15, 2016 Physician Name PaulinoTip Attending Physician Fredy Benjamin MD Current Medications Medications (Trade) Dose Ordered Sig/Tricia Route PRN Reason Start Time Stop Time Status Last Admin Dose Admin Acetaminophen (Tylenol) 650 mg Q6H PRN ORAL Mild Pain/Temp > 100.5 08/13/16 06:45 09/12/16 06:44 Al Hydroxide/Mg Hydroxide (Mylanta II) 30 ml Q6H PRN ORAL dyspepsia 08/13/16 02:15 09/12/16 02:14 Albuterol/ Ipratropium (DuoNeb 0.5-3(2.5)mg/3ml) 3 ml Q4H PRN INH Shortness of Breath 08/13/16 04:15 08/18/16 04:14 Albuterol/ Ipratropium (DuoNeb 0.5-3(2.5)mg/3ml) 3 ml Q8HRT INH 08/13/16 07:00 08/18/16 06:59 08/15/16 15:39 Apixaban (Eliquis) 2.5 mg BID@0900,2100 ORAL 08/13/16 09:00 09/12/16 08:59 08/15/16 10:17 Aspirin (ASA) 81 mg DAILY ORAL 08/13/16 09:00 09/12/16 08:59 08/14/16 08:29 Bisacodyl (Dulcolax) 10 mg HSPRN PRN RECTAL Constipation 08/13/16 08:15 09/12/16 08:14 Dextrose (Dextrose 50%) STAT PRN IV Hypoglycemia 08/13/16 08:15 09/12/16 08:14 Docusate Sodium (Colace) 100 mg EVERY 12 HOURS ORAL 08/13/16 09:00 09/12/16 08:59 08/14/16 08:30 Magnesium Hydroxide (Mom) 30 ml HSPRN PRN ORAL Constipation 08/13/16 08:15 09/12/16 08:14 Nifedipine (Procardia XL) 90 mg DAILY ORAL 08/13/16 09:00 09/12/16 08:59 08/13/16 09:52 Nitroglycerin (Ntg) 0.4 mg Q5M X 3 DOSES PRN SL Prn Chest Pain 08/13/16 01:00 09/12/16 00:59 Ondansetron HCl (Zofran) 4 mg Q6H PRN IVP Nausea & Vomiting 08/13/16 02:15 09/12/16 02:14 Pantoprazole (Protonix) 40 mg DAILY ORAL 08/13/16 09:00 09/12/16 08:59 08/15/16 10:18 Polyethylene Glycol (Miralax) 17 gm HSPRN PRN ORAL Constipation 08/13/16 08:15 09/12/16 08:14 Pregabalin (Lyrica) 25 mg BID@0900,2100 ORAL 08/13/16 09:00 09/12/16 08:59 08/15/16 10:18 Zolpidem Tartrate (Ambien) 10 mg BEDTIME PRN ORAL Insomnia 08/13/16 02:00 09/12/16 01:59 08/13/16 23:49 Allergies: Coded Allergies: No Known Allergies (Verified , 03/30/09) ROS Limited/Unobtainable: No Constitutional: Reports: no symptoms HEENT: Reports: no symptoms Cardiovascular: Reports: no symptoms Respiratory: Reports: no symptoms Gastrointestinal/Abdominal: Reports: no symptoms Genitourinary: Reports: no symptoms Neurologic/Psychiatric: Reports: no symptoms Subjective 86 YO F admitted with shortness of breath. Now Congestive heart failure/COPD exacerbation. Discharge held awaiting home health arrangements. Objective Last Vital Signs Date Time Temp Pulse Resp B/P Pulse Ox O2 Delivery O2 Flow Rate FiO2 08/15/16 16:05 97.5 93 19 144/65 95 Room Air 08/15/16 15:41 21 08/13/16 04:00 2.0 Intake and Output 08/14/16 08/15/16 19:00 07:00 Intake Total 480 ml 470 ml Output Total 500 ml 1400 ml Balance -20 ml -930 ml Intake Oral 480 ml 470 ml Output Urine Total 500 ml 1400 ml Objective GENERAL: The patient awake and responsive, no acute distress. HEAD AND NECK: Pupils are reactive to light. Extraocular movements are intact. Neck was supple. No JVD. LUNGS: Good air entry. No wheeze or rales. HEART: S1 and S2. Regular. No murmur , pacemaker@ LCW ABDOMEN: Soft, nondistended, and nontender. No rebound tenderness. EXTREMITIES: No cyanosis or clubbing. Trace edema around ankle. NEUROLOGIC: Cranial nerves II through XII are grossly intact. The patient is moving all extremities. Gait is steady with a walker. Assessment/Plan Status: stable Status Narrative [facility]charge home with [facility] today. Assessment/Plan ASSESSMENT: 1. Shortness of breath possible acute chronic obstructive pulmonary disease exacerbation as well as acute congestive heart failure. 2. Hypertension. 3. Dyslipidemia. 4. History of bladder cancer. 5. Degenerative joint disease of cervical spine. 6. Weight loss. PLAN: On telemetry. Dr. Craig, Pulmonary Critical Care and Dr. Gamez from Cardiology DVT prophylaxis: Eliquis monitor laboratory closely, PT evaluation, Nebulizer treatment. Code status: Full Code CT chest / abdomen / Pelvic Await adenosine cardiac stress test-see cardiology note. TIP PAULINO Aug 15, 2016 18:32
--- NOTE | 2016-08-16 13:00 | Discharge Summary ---
Discharge Summary Hospital Course Date of Admission Aug 10, 2016 at 04:44 Date of Discharge Aug 15, 2016 at 19:30 Admitting Diagnosis chf exacerbation HPI Nanci Lyles is a 86 year old female who was admitted on Aug 10, 2016 at 04:44 for Cardiac Heart Failure Exacerbation Hospital Course Discharge was held Aug 14 awaiting home health arrangements. Patient left Jul Home with . Discharge Discharge Disposition Patient was discharged to Home with Home Health(06) Discharge Diagnoses: Lisa Quevedo NP Aug 16, 2016 13:00
== END 2016-08-15 19:30 | disposition home health service (06) | DRG 292 ==
LOC: EMR 03:58 → 2E 04:44 → EDBEDREQ 05:56 → 2E 08-12 21:19 → 4W 08-13 00:41
DX: I11.0 Hypertensive heart disease with heart failure (principal); J44.1 Chronic obstructive pulmonary disease with (acute) exacerbation; I48.0 Paroxysmal atrial fibrillation; I10 Essential (primary) hypertension; E78.5 Hyperlipidemia, unspecified; Z85.51 Personal history of malignant neoplasm of bladder; M19.90 Unspecified osteoarthritis, unspecified site; Z95.0 Presence of cardiac pacemaker; G47.00 Insomnia, unspecified; M47.892 Other spondylosis, cervical region; K21.9 Gastro-esophageal reflux disease without esophagitis; K29.70 Gastritis, unspecified, without bleeding; Z23 Encounter for immunization
CPT/HCPCS: 36415; 71010; 71260; 74177; 80048; 80053; 81003; 82465; 82550; 82553; 83605; 83735; 83880; 84100; 84484; 85025; 85610; 85730; 87040; 93005; 93306; 94640; 94664; J7620; Q2036

== ENCOUNTER 2016-08-26 21:37 | Inpatient (IN) | payer MEDICARE, MEDICAID ==
[~2016-08-26] VITALS: Ht 160 cm; Wt 54.4 kg
[~2016-08-26 21:37] MED LIST changes: +CARDIZEM60 MG ORAL
--- NOTE | 2016-08-26 21:43 | Emergency Room Report ---
History of Present Illness General Source: Patient, Family Member, EMS Present Illness HPI Patient is an 86-year-old female presented after having acute onset of shortness of breath. Patient had prior history of hypertension as well as pacemaker and congestive heart failure. Patient recently hospitalized after being told she had some fluid on her lungs. Patient was noted to be markedly short of breath and was given nitroglycerin by paramedics 1.2 mg. patient had sudden onset of symptoms. Shortness of breath was worsened with supine position. Patient had no recent increase in leg swelling. Allergies: Coded Allergies: No Known Allergies (Verified , 03/30/09) Patient History Past Medical History: see triage record, HTN, CHF Reviewed Nursing Documentation: PMH: Agreed, PSxH: Agreed Nursing Documentation-PMH Hx Cardiac Problems: Yes Hx Hypertension: Yes Hx Pacemaker: Yes Hx Asthma: Yes Hx COPD: Yes Hx Diabetes: No Hx Cancer: Yes - Bladder CA Hx Gastrointestinal Problems: No Hx Dialysis: No Hx Neurological Problems: No Hx Cerebrovascular Accident: No Hx Seizures: No Review of Systems All Other Systems: negative except mentioned in HPI Physical Exam Sp02 EP Interpretation: reviewed, normal General Appearance: normal inspection, GCS 15, moderate distress Head: atraumatic ENT: normal ENT inspection, hearing grossly normal, normal voice Neck: normal inspection, full range of motion, supple, no bony tend Respiratory: normal inspection, no respiratory distress, no retraction, rhonchi Cardiovascular #1: regular rate, rhythm, no edema Gastrointestinal: normal inspection, normal bowel sounds, non tender, soft, no guarding, no hernia Genitourinary: no CVA tenderness Musculoskeletal: normal inspection, back normal, normal range of motion Neurologic: normal inspection, alert, oriented x3, responsive, senior water resources engineer III-XII nml as tested, speech normal Psychiatric: normal inspection, judgement/insight normal, mood/affect normal Skin: normal inspection, normal color, no rash Procedures Critical Care Time Critical Care Time Patient had a critical medical condition which untreated could potentially result in life or limb threatening injury. Total critical care time excluding procedures approximately 45 minutes. Medical Decision Making Diagnostic Impression: Primary Impression: Congestive heart failure Additional Impressions: COPD (chronic obstructive pulmonary disease) Pulmonary edema ER Course Patient presented for shortness of breath.Differential included but was not limited to anemia, pneumonia, pneumothorax, myocardial infarction, pericardial effusion, congestive heart failure, acidosis. Because of complexity of patient' s case laboratory testing and imaging studies were ordered. EKG interpreted by me showed ventricle paced rhythm with a rate in the 60s. Patient was initially on some oxygen via nonrebreather was brought in by EMS. The patient started on BiPAP. The patient was given IV Lasix. Patient was noted to have worsening of chest x-ray compared to prior imaging studies. The patient did have some continued difficulty breathing. Dr. Fredy Benjamin was contacted for inpatient management Laboratory Tests Test 08/26/16 21:50 White Blood Count 10.5 K/UL (4.8-10.8) Red Blood Count 4.60 M/UL (4.20-5.40) Hemoglobin 13.8 G/DL (12.0-16.0) Hematocrit 44.4 % (37.0-47.0) Mean Corpuscular Volume 97 FL (80-99) Mean Corpuscular Hemoglobin 30.0 PG (27.0-31.0) Mean Corpuscular Hemoglobin Concent 31.0 G/DL (32.0-36.0) L Red Cell Distribution Width 14.1 % (11.6-14.8) Platelet Count 224 K/UL (150-450) Mean Platelet Volume 7.2 FL (6.5-10.1) Neutrophils (%) (Auto) 60.4 % (45.0-75.0) Lymphocytes (%) (Auto) 29.8 % (20.0-45.0) Monocytes (%) (Auto) 5.1 % (1.0-10.0) Eosinophils (%) (Auto) 3.2 % (0.0-3.0) H Basophils (%) (Auto) 1.5 % (0.0-2.0) Sodium Level 142 mEQ/L (135-145) Potassium Level 4.4 mEQ/L (3.4-4.9) Chloride Level 105 mEQ/L (98-107) Carbon Dioxide Level 18 mEQ/L (20-30) L Anion Gap 19 (5-15) H Blood Urea Nitrogen 17 mg/dL (7-23) Creatinine 1.2 mg/dL (0.5-0.9) H Estimate Glomerular Filtration Rate mL/min (>60) Glucose Level 171 mg/dL (74-106) H Calcium Level 8.3 mg/dL (8.6-10.2) L Total Bilirubin 0.2 mg/dL (0.0-1.2) Aspartate Amino Transferase (AST) 23 U/L (5-40) Alanine Aminotransferase (ALT) 7 U/L (3-33) Alkaline Phosphatase 68 U/L (35-104) Total Creatine Kinase 57 U/L (26-140) Creatine Kinase MB 1.8 ng/mL (< 3.8) Creatine Kinase MB Relative Index 3.1 Troponin I < 0.30 ng/mL (<=0.30) Pro-B-Type Natriuretic Peptide 3804 pg/mL (0-450) H Total Protein 6.2 g/dL (6.6-8.7) L Albumin 3.1 g/dL (3.5-5.2) L Globulin 3.1 g/dL Albumin/Globulin Ratio 1.0 (1.0-2.7) Lipase 18 U/L (< 60) Chest X-Ray Diagnostic Results EP Interpretation: Yes Findings: no effusion, no pneumothorax, no acute cardiopulmonary disease Number of Views: 1 Status: unchanged Disposition: ADMITTED INPATIENT Condition: Serious Freeman Duong Aug 26, 2016 21:43
[2016-08-26] MEDS ORDERED: Nitroglycerin 2% oint pkt TOPIC ONE (22:00)
[2016-08-26 22:39] VITALS: BP 145/59
[2016-08-26 22:39] LABS: BASOPHILS % (AUTO) 1.5 % (0.0-2.0); EOSINOPHILS % (AUTO) 3.2 % (0.0-3.0); LYMPHOCYTES % (AUTO) 29.8 % (20.0-45.0); MEAN CORPUSCULAR VOLUME 97 FL (80-99); MEAN PLATELET VOLUME 7.2 FL (6.5-10.1); MONOCYTES % (AUTO) 5.1 % (1.0-10.0); NEUTROPHILS % (AUTO) 60.4 % (45.0-75.0); PLATELET COUNT 224 K/UL (150-450); RED CELL DISTRIBUTION WIDTH 14.1 % (11.6-14.8); WHITE BLOOD COUNT 10.5 K/UL (4.8-10.8)
[2016-08-26 23:00] LABS: TROPONIN I < 0.30 ng/mL (<=0.30)
[2016-08-26 23:03] LABS: ALANINE AMINOTRANSFERASE 7 U/L (3-33); ANION GAP 19 (5-15); ASPARTATE AMINO TRANSFERASE 23 U/L (5-40); CALCIUM 8.3 mg/dL (8.6-10.2); CARBON DIOXIDE 18 mEQ/L (20-30); CHLORIDE 105 mEQ/L (98-107); CREATININE 1.2 mg/dL (0.5-0.9); HEMOLYSIS 165; LIPASE 18 U/L (< 60); POTASSIUM 4.4 mEQ/L (3.4-4.9); SODIUM 142 mEQ/L (135-145); TOTAL PROTEIN 6.2 g/dL (6.6-8.7)
[2016-08-26 23:14] LABS: CKMB 1.8 ng/mL (< 3.8)
[2016-08-26 23:25] VITALS: BP 127/54
[2016-08-26] MEDS ORDERED: DuoNeb 0.5-3(2.5)mg/3ml neb HHN PRN (23:30)
[2016-08-26] MEDS ORDERED: Miralax 17gm pkt ORAL PRN (23:30)
--- NOTE | 2016-08-26 23:38 | Consultation ---
History of Present Illness General Date patient seen: Aug 26, 2016 Chief Complaint: Dyspnea/Respdistress Referring physician: Dr. Parry Reason for Consultation: dyspnea Present Illness HPI 86-year-old female with hx of pace maker, afib, CHf, just recently discharged form [facility] presented after having acute onset of shortness of breath. Patient was markedly short of breath and was given nitroglycerin by paramedics 1.2 mg. She was in respiratory failure in ER and was put on BIPAP. She cant give any history. she is being transferred to [facility]. Allergies: Coded Allergies: No Known Allergies (Verified , 03/30/09) Medication History Scheduled Albuterol Sulfate* (Albuterol Sulfate Mdi*), 2 PUFF INH Q6H, (Reported) Diltiazem Hcl* (Cardizem*), 120 MG ORAL DAILY, (Reported) Metoprolol Tartrate* (Metoprolol Tartrate*), 25 MG ORAL BID, (Reported) Pregabalin (Lyrica), 25 MG ORAL BID, (Reported) Rosuvastatin Calcium (Crestor), 10 MG ORAL DAILY, (Reported) Scheduled PRN Zolpidem Tartrate* (Ambien*), 10 MG ORAL BEDTIME PRN for Insomnia, (Reported) Miscellaneous Medications Budesonide/Formoterol Fumarate (Symbicort 80-4.5 Mcg Inhaler), 1 PUFF IH, ( Reported) Ipratropium [place] (Atrovent Hfa), 12.9 GM IH, (Reported) Discontinued Medications Apixaban (Eliquis), 2.5 MG PO BID, (Reported) Discontinued Reason: MD discontinued med Nifedipine Xl* (Procardia Xl*), 90 MG PO DAILY, (Reported) Discontinued Reason: discontinued med Valsartan (Diovan), 160 MG ORAL DAILY, (Reported) Discontinued Reason: MD discontinued med Patient History Healthcare decision maker Resuscitation status Advanced Directive on File Past Medical/Surgical History Past Medical/Surgical History: (1) Pulmonary edema (2) HTN (hypertension) (3) Atrial fibrillation (4) COPD (chronic obstructive pulmonary disease) (5) Pacemaker Review of Systems All Other Systems: negative except mentioned in HPI Physical Exam General Appearance: cachetic Lines, tubes and drains: peripheral HEENT: normocephalic, atraumatic Neck: non-tender, normal alignment Respiratory/Chest: crackles/rales Cardiovascular/Chest: normal peripheral pulses, irregularly irregular Abdomen: normal bowel sounds, non tender Genitourinary/Rectal: normal genital exam, normal rectal exam Extremities: normal range of motion, non-tender Last 24 Hour Vital Signs Date Time Temp Pulse Resp B/P Pulse Ox O2 Delivery O2 Flow Rate FiO2 08/26/16 23:25 98.5 60 27 127/54 93 Bi-pap 30 08/26/16 22:42 30 08/26/16 22:41 71 15 Non-Rebreather 15.0 30 08/26/16 22:39 98.5 71 15 145/59 100 Non-Rebreather 15.0 08/26/16 22:37 73 38 93 Facial 30 08/26/16 22:34 124/52 08/26/16 21:37 117 22 147/93 100 Non-Rebreather 15.0 Laboratory Tests Test 08/26/16 21:50 White Blood Count 10.5 K/UL (4.8-10.8) Red Blood Count 4.60 M/UL (4.20-5.40) Hemoglobin 13.8 G/DL (12.0-16.0) Hematocrit 44.4 % (37.0-47.0) Mean Corpuscular Volume 97 FL (80-99) Mean Corpuscular Hemoglobin 30.0 PG (27.0-31.0) Mean Corpuscular Hemoglobin Concent 31.0 G/DL (32.0-36.0) L Red Cell Distribution Width 14.1 % (11.6-14.8) Platelet Count 224 K/UL (150-450) Mean Platelet Volume 7.2 FL (6.5-10.1) Neutrophils (%) (Auto) 60.4 % (45.0-75.0) Lymphocytes (%) (Auto) 29.8 % (20.0-45.0) Monocytes (%) (Auto) 5.1 % (1.0-10.0) Eosinophils (%) (Auto) 3.2 % (0.0-3.0) H Basophils (%) (Auto) 1.5 % (0.0-2.0) Sodium Level 142 mEQ/L (135-145) Potassium Level 4.4 mEQ/L (3.4-4.9) Chloride Level 105 mEQ/L (98-107) Carbon Dioxide Level 18 mEQ/L (20-30) L Anion Gap 19 (5-15) H Blood Urea Nitrogen 17 mg/dL (7-23) Creatinine 1.2 mg/dL (0.5-0.9) H Estimat Glomerular Filtration Rate mL/min (>60) Glucose Level 171 mg/dL (74-106) H Calcium Level 8.3 mg/dL (8.6-10.2) L Total Bilirubin 0.2 mg/dL (0.0-1.2) Aspartate Amino Transf (AST/SGOT) 23 U/L (5-40) Alanine Aminotransferase (ALT/SGPT) 7 U/L (3-33) Alkaline Phosphatase 68 U/L (35-104) Total Creatine Kinase 57 U/L (26-140) Creatine Kinase MB 1.8 ng/mL (< 3.8) Creatine Kinase MB Relative Index 3.1 Troponin I < 0.30 ng/mL (<=0.30) Pro-B-Type Natriuretic Peptide 3804 pg/mL (0-450) H Total Protein 6.2 g/dL (6.6-8.7) L Albumin 3.1 g/dL (3.5-5.2) L Globulin 3.1 g/dL Albumin/Globulin Ratio 1.0 (1.0-2.7) Lipase 18 U/L (< 60) Height (Feet): 5 Height (Inches): 3.00 Weight (Pounds): 120 Medications Current Medications Medications (Trade) Dose Ordered Sig/Tricia Route PRN Reason Start Time Stop Time Status Last Admin Dose Admin Acetaminophen (Tylenol) 650 mg Q4H PRN ORAL Fever 08/26/16 23:30 09/25/16 23:29 UNV Albuterol/ Ipratropium (DuoNeb 0.5-3(2.5)mg/3ml) 3 ml EVERY 4 HOURS PRN HHN Shortness of Breath 08/26/16 23:30 08/31/16 23:29 UNV Apixaban (Eliquis) 2.5 mg BID ORAL 08/27/16 09:00 09/26/16 08:59 UNV Dextrose (Dextrose 50%) STAT PRN IV Hypoglycemia 08/26/16 23:30 09/25/16 23:29 UNV Diltiazem HCl (Cardizem) 120 mg DAILY ORAL 08/27/16 09:00 09/26/16 08:59 UNV Furosemide (Lasix) 40 mg EVERY 8 HOURS STAT IV 08/26/16 23:30 08/26/16 23:31 UNV Heparin Sodium (Porcine) (Heparin 5000 units/ml) 5,000 units EVERY 12 HOURS SUBQ 08/27/16 09:00 09/26/16 08:59 UNV Metoprolol Tartrate (Lopressor) 25 mg BID ORAL 08/27/16 09:00 09/26/16 08:59 UNV Nifedipine (Procardia XL) 90 mg DAILY ORAL 08/27/16 09:00 09/26/16 08:59 UNV Ondansetron HCl (Zofran) 4 mg Q6H PRN IVP Nausea & Vomiting 08/26/16 23:30 09/25/16 23:29 UNV Ondansetron HCl (Zofran) 4 mg Q6H PRN IVP Nausea & Vomiting 08/26/16 23:30 09/25/16 23:29 UNV Polyethylene Glycol (Miralax) 17 gm DAILYPRN PRN ORAL Constipation 08/26/16 23:30 09/25/16 23:29 UNV Temazepam (Restoril) 15 mg HSPRN PRN ORAL Insomnia 08/26/16 23:30 09/02/16 23:29 UNV Assessment/Plan Problem List: (1) Respiratory failure, acute ICD Codes: J96.00 - Acute respiratory failure, unspecified whether with hypoxia or hypercapnia SNOMED: 01016688 (2) Pulmonary edema (3) Atrial fibrillation ICD Codes: I48.91 - Unspecified atrial fibrillation SNOMED: 73682355 (4) COPD (chronic obstructive pulmonary disease) ICD Codes: J44.9 - Chronic obstructive pulmonary disease, unspecified SNOMED: 17593636 (5) Pacemaker ICD Codes: Z95.0 - Presence of cardiac pacemaker SNOMED: 75839695, 110471172, 995134048 (6) HTN (hypertension) ICD Codes: I10 - Hypertension SNOMED: 92186287 Assessment/Plan titrate bipap titrate fio2 cxr, bnp in am diuretics monitor bp monitor intake and output. Cardiology to see AYDE ASHLEY Aug 26, 2016 23:38
[2016-08-27 01:00] VITALS: BP 124/52
[2016-08-27 04:00] VITALS: BP 124/52
[2016-08-27 04:46] LABS: BASOPHILS % (AUTO) 2.4 % (0.0-2.0); EOSINOPHILS % (AUTO) 1.4 % (0.0-3.0); LYMPHOCYTES % (AUTO) 17.6 % (20.0-45.0); MEAN CORPUSCULAR HGB CONC 28.8 G/DL (32.0-36.0); MEAN CORPUSCULAR VOLUME 70 FL (80-99); MEAN PLATELET VOLUME 9.6 FL (6.5-10.1); MONOCYTES % (AUTO) 10.1 % (1.0-10.0); NEUTROPHILS % (AUTO) 68.5 % (45.0-75.0); PLATELET COUNT 190 K/UL (150-450); RED BLOOD COUNT 5.18 M/UL (4.20-5.40); RED CELL DISTRIBUTION WIDTH 18.5 % (11.6-14.8); WHITE BLOOD COUNT 7.9 K/UL (4.8-10.8)
[2016-08-27 05:51] LABS: ANION GAP 15 (5-15); CALCIUM 9.8 mg/dL (8.6-10.2); CARBON DIOXIDE 29 mEQ/L (20-30); CHLORIDE 94 mEQ/L (98-107); CREATININE 1.1 mg/dL (0.5-0.9); HEMOLYSIS 0; PHOSPHORUS 4.1 mg/dL (2.5-4.8); POTASSIUM 4.2 mEQ/L (3.4-4.9); SODIUM 138 mEQ/L (135-145)
[2016-08-27 06:08] LABS: TROPONIN I < 0.30 ng/mL (<=0.30)
[2016-08-27 08:00] VITALS: BP 115/73
[2016-08-27] MEDS: Metoprolol 25mg tab ORAL SCH ×2 (08:58→20:46)
[2016-08-27] MEDS: Heparin 5000 units/ml inj SUBQ SCH ×2 (08:59→20:47)
[2016-08-27] MEDS ORDERED: Eliquis 2.5mg tablet ORAL SCH (09:00)
[2016-08-27 12:00] VITALS: BP 128/56
--- NOTE | 2016-08-27 12:10 | Diagnostic Imaging Report ---
Indication: Dyspnea Comparison: 08/12/16 A single view chest radiograph was obtained. Findings: Interstitial opacities have developed in the lungs bilaterally. The heart is enlarged. Findings probably indicate interstitial edema although inflammatory or infectious pneumonitis is not excluded. There is a left-sided pacemaker noted. Bones are osteopenic. Impression: Development of interstitial disease. In the setting of cardiomegaly and some prominence of vascularity this is probably due to CHF. Please correlate clinically
--- NOTE | 2016-08-27 12:12 | Pulmonology Progress Note ---
Assessment/Plan Problems: (1) Respiratory failure, acute (2) Pulmonary edema (3) Atrial fibrillation (4) COPD (chronic obstructive pulmonary disease) (5) Pacemaker (6) HTN (hypertension) Assessment/Plan improving fine tuning cardiac meds f/u intake and output cardio evaluation requested tolerating off bipap diuretics check electrolytes titrate fio2 to sat of 92% Subjective Interval Events: feeling better, off bipap Allergies: Coded Allergies: No Known Allergies (Verified , 03/30/09) Objective Last 24 Hour Vital Signs Date Time Temp Pulse Resp B/P Pulse Ox O2 Delivery O2 Flow Rate FiO2 08/27/16 08:58 65 115/73 08/27/16 08:00 97.5 65 18 115/73 99 Nasal Cannula 2.0 08/27/16 08:00 68 08/27/16 07:07 59 14 98 Facial 30 08/27/16 05:18 67 20 95 Facial 30 08/27/16 04:00 97.7 58 20 124/52 100 Bi-pap 30 08/27/16 04:00 30 08/27/16 04:00 60 08/27/16 03:17 65 20 96 Facial 30 08/27/16 01:00 97.7 58 20 124/52 100 Bi-pap 30 08/27/16 00:56 61 29 96 Facial 30 08/27/16 00:24 98.5 60 27 127/54 93 Bi-pap 15.0 30 08/26/16 23:25 98.5 60 27 127/54 93 Bi-pap 30 08/26/16 22:42 30 08/26/16 22:41 71 15 Non-Rebreather 15.0 30 08/26/16 22:39 98.5 71 15 145/59 100 Non-Rebreather 15.0 08/26/16 22:37 73 38 93 Facial 30 08/26/16 22:34 124/52 08/26/16 21:37 117 22 147/93 100 Non-Rebreather 15.0 Intake and Output 08/26/16 08/27/16 19:00 07:00 Intake Total 120 ml Output Total 600 ml Balance -480 ml Intake Oral 120 ml Output Urine Total 600 ml # Bowel Movements 1 General Appearance: WD/WN HEENT: normocephalic, atraumatic Respiratory/Chest: chest wall non-tender, lungs clear Cardiovascular: normal peripheral pulses, normal rate Abdomen: normal bowel sounds, soft, non tender Extremities: no cyanosis, no clubbing Skin: no rash Neurologic/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: 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 normal, no motor/sensory deficits Lymphatic: no neck adenopathy Laboratory Tests 08/26/16 21:50: White Blood Count 10.5, Red Blood Count 4.60, Hemoglobin 13.8, Hematocrit 44.4, Mean Corpuscular Volume 97, Mean Corpuscular Hemoglobin 30.0, Mean Corpuscular Hemoglobin Concent 31.0L, Red Cell Distribution Width 14.1, Platelet Count 224, Mean Platelet Volume 7.2, Neutrophils (%) (Auto) 60.4, Lymphocytes (%) (Auto) 29.8, Monocytes (%) (Auto) 5.1, Eosinophils (%) (Auto) 3.2H, Basophils (%) (Auto ) 1.5, Sodium Level 142, Potassium Level 4.4, Chloride Level 105, Carbon Dioxide Level 18L, Anion Gap 19H, Blood Urea Nitrogen 17, Creatinine 1.2H, Estimat Glomerular Filtration Rate , Glucose Level 171H, Calcium Level 8.3L, Total Bilirubin 0.2, Aspartate Amino Transf (AST/SGOT) 23, Alanine Aminotransferase (ALT/SGPT) 7, Alkaline Phosphatase 68, Total Creatine Kinase 57 , Creatine Kinase MB 1.8, Creatine Kinase MB Relative Index 3.1, Troponin I < 0.30, Pro-B-Type Natriuretic Peptide 3804H, Total Protein 6.2L, Albumin 3.1L, Globulin 3.1, Albumin/Globulin Ratio 1.0, Lipase 18 08/27/16 03:25: White Blood Count 7.9, Red Blood Count 5.18, Hemoglobin 10.4L, Hematocrit 36.0L , Mean Corpuscular Volume 70#L, Mean Corpuscular Hemoglobin 20.0L, Mean Corpuscular Hemoglobin Concent 28.8L, Red Cell Distribution Width 18.5H, Platelet Count 190, Mean Platelet Volume 9.6, Neutrophils (%) (Auto) 68.5, Lymphocytes (%) (Auto) 17.6L, Monocytes (%) (Auto) 10.1H, Eosinophils (%) (Auto ) 1.4, Basophils (%) (Auto) 2.4H, Sodium Level 138, Potassium Level 4.2, Chloride Level 94L, Carbon Dioxide Level 29, Anion Gap 15, Blood Urea Nitrogen 16, Creatinine 1.1H, Estimat Glomerular Filtration Rate , Glucose Level 130H, Calcium Level 9.8, Troponin I < 0.30, Albumin 4.1, Phosphorus Level 4.1 Current Medications Medications (Trade) Dose Ordered Sig/Tricia Route PRN Reason Start Time Stop Time Status Last Admin Dose Admin Acetaminophen (Tylenol) 650 mg Q4H PRN ORAL Fever 08/26/16 23:30 09/25/16 23:29 Albuterol/ Ipratropium (DuoNeb 0.5-3(2.5)mg/3ml) 3 ml Q4H PRN HHN Shortness of Breath 08/26/16 23:30 08/31/16 23:29 Dextrose (Dextrose 50%) STAT PRN IV Hypoglycemia 08/26/16 23:30 09/25/16 23:29 Diltiazem HCl (Cardizem) 120 mg DAILY ORAL 08/27/16 09:00 09/26/16 08:59 UNV Furosemide (Lasix) 40 mg EVERY 8 HOURS IV 08/27/16 14:00 09/26/16 13:59 Heparin Sodium (Porcine) (Heparin 5000 units/ml) 5,000 units EVERY 12 HOURS SUBQ 08/27/16 09:00 09/26/16 08:59 08/27/16 08:59 Metoprolol Tartrate (Lopressor) 25 mg BID@0900,2100 ORAL 08/27/16 09:00 09/26/16 08:59 08/27/16 08:58 Nifedipine (Procardia XL) 90 mg DAILY ORAL 08/27/16 09:00 09/26/16 08:59 UNV Ondansetron HCl (Zofran) 4 mg Q6H PRN IVP Nausea & Vomiting 08/26/16 23:30 09/25/16 23:29 Polyethylene Glycol (Miralax) 17 gm DAILYPRN PRN ORAL Constipation 08/26/16 23:30 09/25/16 23:29 Temazepam (Restoril) 15 mg HSPRN PRN ORAL Insomnia 08/26/16 23:30 09/02/16 23:29 AYDE ASHLEY Aug 27, 2016 12:12
[2016-08-27 16:00] VITALS: BP 132/50
--- NOTE | 2016-08-27 18:06 | History & Physical ---
History and Physical History & Physicial Dictated for Int Med-Dr Benjamin no. [id number]. LESLIE PAULINO Aug 27, 2016 18:06
[2016-08-27 20:00] VITALS: BP 130/51
--- NOTE | 2016-08-27 20:44 | Cardiology Progress Note ---
Assessment/Plan Assessment/Plan [id number] diuretic resume anticoagualtionfor hx of afib Objective Last 24 Hour Vital Signs Date Time Temp Pulse Resp B/P Pulse Ox O2 Delivery O2 Flow Rate FiO2 08/27/16 19:30 Nasal Cannula 3.0 32 08/27/16 19:30 60 98 3.0 32 08/27/16 19:30 98 Nasal Cannula 3.0 32 08/27/16 17:55 58 132/50 08/27/16 17:24 97 Nasal Cannula 3.0 32 08/27/16 17:24 Nasal Cannula 3.0 32 08/27/16 16:00 97.8 58 18 132/50 99 Nasal Cannula 2.0 08/27/16 16:00 69 08/27/16 15:02 62 08/27/16 12:00 97.7 54 18 128/56 100 Nasal Cannula 2.0 08/27/16 12:00 68 08/27/16 08:58 65 115/73 08/27/16 08:00 97.5 65 18 115/73 99 Nasal Cannula 2.0 08/27/16 08:00 68 08/27/16 07:07 59 14 98 Facial 30 08/27/16 05:18 67 20 95 Facial 30 08/27/16 04:00 97.7 58 20 124/52 100 Bi-pap 30 08/27/16 04:00 30 08/27/16 04:00 60 08/27/16 03:17 65 20 96 Facial 30 08/27/16 01:00 97.7 58 20 124/52 100 Bi-pap 30 08/27/16 00:56 61 29 96 Facial 30 08/27/16 00:24 98.5 60 27 127/54 93 Bi-pap 15.0 30 08/26/16 23:25 98.5 60 27 127/54 93 Bi-pap 30 08/26/16 22:42 30 08/26/16 22:41 71 15 Non-Rebreather 15.0 30 08/26/16 22:39 98.5 71 15 145/59 100 Non-Rebreather 15.0 08/26/16 22:37 73 38 93 Facial 30 08/26/16 22:34 124/52 08/26/16 21:37 117 22 147/93 100 Non-Rebreather 15.0 Intake and Output 08/26/16 08/27/16 19:00 07:00 Intake Total 120 ml Output Total 600 ml Balance -480 ml Intake Oral 120 ml Output Urine Total 600 ml # Bowel Movements 1 Laboratory Tests Test 08/26/16 21:50 08/27/16 03:25 White Blood Count 10.5 K/UL (4.8-10.8) 7.9 K/UL (4.8-10.8) Red Blood Count 4.60 M/UL (4.20-5.40) 5.18 M/UL (4.20-5.40) Hemoglobin 13.8 G/DL (12.0-16.0) 10.4 G/DL (12.0-16.0) L Hematocrit 44.4 % (37.0-47.0) 36.0 % (37.0-47.0) L Mean Corpuscular Volume 97 FL (80-99) 70 FL (80-99) #L Mean Corpuscular Hemoglobin 30.0 PG (27.0-31.0) 20.0 PG (27.0-31.0) L Mean Corpuscular Hemoglobin Concent 31.0 G/DL (32.0-36.0) L 28.8 G/DL (32.0-36.0) L Red Cell Distribution Width 14.1 % (11.6-14.8) 18.5 % (11.6-14.8) H Platelet Count 224 K/UL (150-450) 190 K/UL (150-450) Mean Platelet Volume 7.2 FL (6.5-10.1) 9.6 FL (6.5-10.1) Neutrophils (%) (Auto) 60.4 % (45.0-75.0) 68.5 % (45.0-75.0) Lymphocytes (%) (Auto) 29.8 % (20.0-45.0) 17.6 % (20.0-45.0) L Monocytes (%) (Auto) 5.1 % (1.0-10.0) 10.1 % (1.0-10.0) H Eosinophils (%) (Auto) 3.2 % (0.0-3.0) H 1.4 % (0.0-3.0) Basophils (%) (Auto) 1.5 % (0.0-2.0) 2.4 % (0.0-2.0) H Sodium Level 142 mEQ/L (135-145) 138 mEQ/L (135-145) Potassium Level 4.4 mEQ/L (3.4-4.9) 4.2 mEQ/L (3.4-4.9) Chloride Level 105 mEQ/L (98-107) 94 mEQ/L (98-107) L Carbon Dioxide Level 18 mEQ/L (20-30) L 29 mEQ/L (20-30) Anion Gap 19 (5-15) H 15 (5-15) Blood Urea Nitrogen 17 mg/dL (7-23) 16 mg/dL (7-23) Creatinine 1.2 mg/dL (0.5-0.9) H 1.1 mg/dL (0.5-0.9) H Estimat Glomerular Filtration Rate mL/min (>60) mL/min (>60) Glucose Level 171 mg/dL (74-106) H 130 mg/dL (74-106) H Calcium Level 8.3 mg/dL (8.6-10.2) L 9.8 mg/dL (8.6-10.2) Total Bilirubin 0.2 mg/dL (0.0-1.2) Aspartate Amino Transf (AST/SGOT) 23 U/L (5-40) Alanine Aminotransferase (ALT/SGPT) 7 U/L (3-33) Alkaline Phosphatase 68 U/L (35-104) Total Creatine Kinase 57 U/L (26-140) Creatine Kinase MB 1.8 ng/mL (< 3.8) Creatine Kinase MB Relative Index 3.1 Troponin I < 0.30 ng/mL (<=0.30) < 0.30 ng/mL (<=0.30) Pro-B-Type Natriuretic Peptide 3804 pg/mL (0-450) H Total Protein 6.2 g/dL (6.6-8.7) L Albumin 3.1 g/dL (3.5-5.2) L 4.1 g/dL (3.5-5.2) Globulin 3.1 g/dL Albumin/Globulin Ratio 1.0 (1.0-2.7) Lipase 18 U/L (< 60) Phosphorus Level 4.1 mg/dL (2.5-4.8) CATALINA SAN Aug 27, 2016 20:44
[2016-08-28] VITALS: BP 117/45
--- NOTE | 2016-08-28 00:48 | History and Physical Report ---
DATE OF ADMISSION: 08/26/2016 CHIEF COMPLAINT: The patient is an 86-year-old female, presents with complaint of shortness of breath. HISTORY OF PRESENT ILLNESS: The patient was recently admitted to [facility] from 08/10/2016 to 08/15/2016. The patient was admitted for chronic obstructive pulmonary disease acute exacerbation. The patient was also found to have congestive heart failure at that time. The patient states she began to get short of breath on 08/26/2016. The patient states it came on abruptly. The patient felt like she just could not catch her breath. The patient denies fever, chills, or cough. The patient presented to [place] emergency room. A chest x-ray showed increased prominence of pulmonary vascularity suggestive of congestive heart failure. The patient is admitted for acute on chronic obstructive pulmonary disease exacerbation and congestive heart failure. PAST MEDICAL HISTORY: Significant for, 1. Sick sinus syndrome, status post pacemaker implantation. 2. Chronic obstructive pulmonary disease. 3. History of bladder cancer, in remission. 4. Hypertensive heart disease. 5. Degenerative joint disease. PAST SURGICAL HISTORY: Significant for pacemaker implantation. CURRENT MEDICATIONS: 1. Albuterol metered-dose inhaler two puffs p.o. times a day. 2. Symbicort one puff p.o. daily. 3. Diltiazem 60 mg two tablets p.o. daily. 4. Atrovent metered-dose inhaler two puffs p.o. every 6 hours. 5. Metoprolol 25 mg one tablet p.o. twice daily. 6. Lyrica 25 mg one tablet p.o. twice daily. 7. Crestor 10 mg one tablet p.o. daily. 8. Ambien 10 mg one tablet p.o. at nightly. ALLERGIES: No known drug allergies. 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 The patient denies tobacco use. The patient denies alcohol use. REVIEW OF SYSTEMS: Constitutional: The patient denies weight loss or weight gain. The patient denies fevers or chills. HEENT: The patient denies ear or throat pain. Cardiovascular: The patient denies palpitations or chest pain. Chest: The patient complains of shortness of breath as above. The patient denies cough. The patient does complain of wheezing. Abdomen: The patient denies nausea, vomiting, or constipation. Genitourinary: The patient denies dysuria or increased frequency of urination. Neuromuscular: The patient denies seizures or generalized weakness. PHYSICAL EXAMINATION: VITAL SIGNS: Temperature 97.5 degrees, respirations 18, pulse 65 to 68, and blood pressure 115/73 . GENERAL: The patient is well-developed and well-nourished thin-appearing female, in no apparent distress. The patient does have some mild respiratory distress noted. HEENT: Pupils are equal and responsive to light and accommodation. Extraocular movements are intact. NECK: Supple without lymphadenopathy. CHEST: Lungs have diffuse wheezing bilateral lung baltazar. There are no rales heard to auscultation. Otherwise, lungs are clear to auscultation without wheezes or rales. CARDIOVASCULAR: Regular rhythm and rate. S1 and S2 normal murmurs, rubs, gallops. ABDOMEN: Soft, nontender, and nondistended. Positive bowel sounds. No hepatosplenomegaly. Currently, no rebound or guarding. EXTREMITIES: Negative for clubbing, cyanosis, or edema. RECTAL: Refused. GENITAL: Refused. NEUROLOGIC: Cranial nerves II through XII are grossly intact without focal deficits. Motor strength is 5/5 bilaterally. Deep tendon reflexes are 2+ plantar. LABORATORY STUDIES: WBC 10.5, hemoglobin 13.8, hematocrit 44.4, and platelets 224,000. Sodium 142, potassium 4.4, chloride 105, CO2 18, BUN 17, creatinine 1.2, and glucose 171. Troponin less than 0.3. BNP elevated at 3804. Chest x-ray revealed increased pulmonary vasculature consistent with congestive heart failure. ASSESSMENT: This is an 86-year-old female, 1. Dyspnea. 2. Chronic obstructive pulmonary disease, acute exacerbation. 3. Congestive heart failure. 4. Sick sinus syndrome. 5. Hypertensive heart disease. 6. Bladder cancer. 7. Degenerative joint disease. TREATMENT: 1. Shortness of breath/chronic obstructive pulmonary disease. A Pulmonary consultation was obtained with Dr. Lj Craig. The patient has been placed empirically on DuoNeb. We will follow recommendations of pulmonology. 2. Congestive heart failure. A Cardiology consultation has been obtained. 3. Hypertension. Continue metoprolol 25 mg one tablet p.o. twice daily. 4. History of bladder cancer in remission. 5. Degenerative joint disease. Tip Parry M.D. DR: Xander JOB#: [id number] CC:
[2016-08-28 04:00] VITALS: BP 108/46
[2016-08-28 05:59] LABS: BASOPHILS % (AUTO) 0.9 % (0.0-2.0); EOSINOPHILS % (AUTO) 4.2 % (0.0-3.0); LYMPHOCYTES % (AUTO) 28.5 % (20.0-45.0); MEAN CORPUSCULAR HEMOGLOBIN 31.1 PG (27.0-31.0); MEAN CORPUSCULAR HGB CONC 32.6 G/DL (32.0-36.0); MEAN CORPUSCULAR VOLUME 95 FL (80-99); MEAN PLATELET VOLUME 7.5 FL (6.5-10.1); NEUTROPHILS % (AUTO) 58.4 % (45.0-75.0); PLATELET COUNT 216 K/UL (150-450); RED BLOOD COUNT 4.06 M/UL (4.20-5.40); RED CELL DISTRIBUTION WIDTH 13.4 % (11.6-14.8); WHITE BLOOD COUNT 7.6 K/UL (4.8-10.8)
[2016-08-28 06:37] LABS: ANION GAP 15 (5-15); CALCIUM 9.9 mg/dL (8.6-10.2); CARBON DIOXIDE 27 mEQ/L (20-30); CHLORIDE 101 mEQ/L (98-107); CREATININE 1.4 mg/dL (0.5-0.9); HEMOLYSIS 20; POTASSIUM 4.1 mEQ/L (3.4-4.9); SODIUM 143 mEQ/L (135-145)
[2016-08-28 08:00] VITALS: BP 110/64
[2016-08-28] MEDS: Metoprolol 25mg tab ORAL SCH ×2 (08:39→21:40)
[2016-08-28] MEDS: Heparin 5000 units/ml inj SUBQ SCH ×2 (08:40→21:45)
--- NOTE | 2016-08-28 11:27 | Internal Med Progress Note ---
Subjective Date of Service: Aug 28, 2016 Physician Name Tip Paulino Attending Physician Fredy Benjamin MD Current Medications Medications (Trade) Dose Ordered Sig/Tricia Route PRN Reason Start Time Stop Time Status Last Admin Dose Admin Acetaminophen (Tylenol) 650 mg Q4H PRN ORAL Fever 08/26/16 23:30 09/25/16 23:29 Albuterol/ Ipratropium (DuoNeb 0.5-3(2.5)mg/3ml) 3 ml Q4H PRN HHN Shortness of Breath 08/26/16 23:30 08/31/16 23:29 Dextrose (Dextrose 50%) STAT PRN IV Hypoglycemia 08/26/16 23:30 09/25/16 23:29 Furosemide (Lasix) 40 mg EVERY 8 HOURS IV 08/27/16 14:00 09/26/16 13:59 08/28/16 06:02 Heparin Sodium (Porcine) (Heparin 5000 units/ml) 5,000 units EVERY 12 HOURS SUBQ 08/27/16 09:00 09/26/16 08:59 08/28/16 08:40 Metoprolol Tartrate (Lopressor) 25 mg BID@0900,2100 ORAL 08/27/16 09:00 09/26/16 08:59 08/28/16 08:39 Nifedipine (Procardia XL) 90 mg DAILY ORAL 08/27/16 09:00 09/26/16 08:59 08/28/16 08:39 Ondansetron HCl (Zofran) 4 mg Q6H PRN IVP Nausea & Vomiting 08/26/16 23:30 09/25/16 23:29 Polyethylene Glycol (Miralax) 17 gm DAILYPRN PRN ORAL Constipation 08/26/16 23:30 09/25/16 23:29 Temazepam (Restoril) 15 mg HSPRN PRN ORAL Insomnia 08/26/16 23:30 09/02/16 23:29 Allergies: Coded Allergies: No Known Allergies (Verified , 03/30/09) ROS Limited/Unobtainable: No Constitutional: Reports: no symptoms HEENT: Reports: no symptoms Cardiovascular: Reports: no symptoms Respiratory: Reports: cough, shortness of breath Gastrointestinal/Abdominal: Reports: no symptoms Genitourinary: Reports: no symptoms Neurologic/Psychiatric: Reports: no symptoms Subjective 86 YO F admitted with shortness of breath. Now COPD exacerbation and CHF. Cover for Int Med-Dr Benjamin. Objective Last Vital Signs Date Time Temp Pulse Resp B/P Pulse Ox O2 Delivery O2 Flow Rate FiO2 08/28/16 08:39 65 110/64 08/28/16 08:01 99 Nasal Cannula 3.0 32 08/28/16 08:01 19 08/28/16 08:00 97.8 General Appearance: alert, mild distress, thin EENT: PERRL/EOMI, normal ENT inspection Neck: non-tender, normal alignment, supple, normal inspection Cardiovascular: normal peripheral pulses, no gallop/murmur, no JVD, irregularly irregular Respiratory/Chest: chest wall non-tender, accessory muscle use, crackles/rales , rhonchi - bilaterally, expiratory wheezing Abdomen: normal bowel sounds, non tender, soft, no organomegaly, no mass Extremities: normal range of motion 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, no motor/sensory deficits Skin: normal pigmentation, warm/dry Laboratory Tests Test 08/28/16 04:15 White Blood Count 7.6 K/UL (4.8-10.8) Red Blood Count 4.06 M/UL (4.20-5.40) L Hemoglobin 12.6 G/DL (12.0-16.0) Hematocrit 38.7 % (37.0-47.0) Mean Corpuscular Volume 95 FL (80-99) # Mean Corpuscular Hemoglobin 31.1 PG (27.0-31.0) H Mean Corpuscular Hemoglobin Concent 32.6 G/DL (32.0-36.0) Red Cell Distribution Width 13.4 % (11.6-14.8) Platelet Count 216 K/UL (150-450) Mean Platelet Volume 7.5 FL (6.5-10.1) Neutrophils (%) (Auto) 58.4 % (45.0-75.0) Lymphocytes (%) (Auto) 28.5 % (20.0-45.0) Monocytes (%) (Auto) 8.0 % (1.0-10.0) Eosinophils (%) (Auto) 4.2 % (0.0-3.0) H Basophils (%) (Auto) 0.9 % (0.0-2.0) Sodium Level 143 mEQ/L (135-145) Potassium Level 4.1 mEQ/L (3.4-4.9) Chloride Level 101 mEQ/L (98-107) Carbon Dioxide Level 27 mEQ/L (20-30) Anion Gap 15 (5-15) Blood Urea Nitrogen 21 mg/dL (7-23) Creatinine 1.4 mg/dL (0.5-0.9) H Estimat Glomerular Filtration Rate mL/min (>60) Glucose Level 87 mg/dL (74-106) Calcium Level 9.9 mg/dL (8.6-10.2) Pro-B-Type Natriuretic Peptide 2533 pg/mL (0-450) H Microbiology Date/Time Source Procedure Growth Status 08/26/16 22:05 Blood Blood Culture - Preliminary NO GROWTH AFTER 24 HOURS Resulted 08/26/16 21:50 Blood Blood Culture - Preliminary NO GROWTH AFTER 24 HOURS Resulted Intake and Output 08/27/16 08/28/16 19:00 07:00 Intake Total 380 ml 300 ml Output Total 900 ml 1500 ml Balance -520 ml -1200 ml Intake Oral 380 ml 300 ml Output Urine Total 900 ml 1500 ml # Voids 2 # Bowel Movements 2 Assessment/Plan Problem List: (1) Shortness of breath Assessment & Plan: Due to COPD below. (2) COPD (chronic obstructive pulmonary disease) Assessment & Plan: Acute exacerbation-See pulmonary note. (3) Atrial fibrillation Assessment & Plan: Restart eliquis per cardiology (4) Sick sinus syndrome Assessment & Plan: S/P pacemaker-see cardiology note. (5) HTN (hypertension) Assessment & Plan: Continue lopressor and procardia (6) Pacemaker (7) Congestive heart failure Assessment & Plan: Continue lasix per cardiology Status: not improved TIP PAULINO Aug 28, 2016 11:27
[2016-08-28 12:00] VITALS: BP 111/51
--- NOTE | 2016-08-28 14:35 | Cardiac Electrophysiology PN ---
Subjective Subjective [id number] EP consult dictated. Objective Last 24 Hour Vital Signs Date Time Temp Pulse Resp B/P Pulse Ox O2 Delivery O2 Flow Rate FiO2 08/28/16 12:00 96.3 61 19 111/51 97 Nasal Cannula 2.5 08/28/16 12:00 60 08/28/16 08:39 65 110/64 08/28/16 08:39 65 110/64 08/28/16 08:01 99 Nasal Cannula 3.0 32 08/28/16 08:01 63 19 Nasal Cannula 3.0 32 08/28/16 08:01 Nasal Cannula 3.0 32 08/28/16 08:00 64 08/28/16 08:00 97.8 65 19 110/64 100 Nasal Cannula 2.5 08/28/16 04:00 97.4 72 20 108/46 100 Nasal Cannula 3.0 08/28/16 03:48 60 08/28/16 03:21 3.0 32 08/28/16 01:31 98 3.0 32 08/28/16 00:19 62 08/28/16 00:00 97.0 62 20 117/45 100 Nasal Cannula 3.0 08/27/16 20:46 60 132/50 08/27/16 20:00 97.1 73 18 130/51 98 Nasal Cannula 3.0 08/27/16 20:00 68 08/27/16 19:30 Nasal Cannula 3.0 32 08/27/16 19:30 60 98 3.0 32 08/27/16 19:30 98 Nasal Cannula 3.0 32 08/27/16 17:55 58 132/50 08/27/16 17:24 97 Nasal Cannula 3.0 32 08/27/16 17:24 Nasal Cannula 3.0 32 08/27/16 16:00 97.8 58 18 132/50 99 Nasal Cannula 2.0 08/27/16 16:00 69 08/27/16 15:02 62 Intake and Output 08/27/16 08/28/16 19:00 07:00 Intake Total 380 ml 300 ml Output Total 900 ml 1500 ml Balance -520 ml -1200 ml Intake Oral 380 ml 300 ml Output Urine Total 900 ml 1500 ml # Voids 2 # Bowel Movements 2 Laboratory Tests Test 08/28/16 04:15 White Blood Count 7.6 K/UL (4.8-10.8) Red Blood Count 4.06 M/UL (4.20-5.40) L Hemoglobin 12.6 G/DL (12.0-16.0) Hematocrit 38.7 % (37.0-47.0) Mean Corpuscular Volume 95 FL (80-99) # Mean Corpuscular Hemoglobin 31.1 PG (27.0-31.0) H Mean Corpuscular Hemoglobin Concent 32.6 G/DL (32.0-36.0) Red Cell Distribution Width 13.4 % (11.6-14.8) Platelet Count 216 K/UL (150-450) Mean Platelet Volume 7.5 FL (6.5-10.1) Neutrophils (%) (Auto) 58.4 % (45.0-75.0) Lymphocytes (%) (Auto) 28.5 % (20.0-45.0) Monocytes (%) (Auto) 8.0 % (1.0-10.0) Eosinophils (%) (Auto) 4.2 % (0.0-3.0) H Basophils (%) (Auto) 0.9 % (0.0-2.0) Sodium Level 143 mEQ/L (135-145) Potassium Level 4.1 mEQ/L (3.4-4.9) Chloride Level 101 mEQ/L (98-107) Carbon Dioxide Level 27 mEQ/L (20-30) Anion Gap 15 (5-15) Blood Urea Nitrogen 21 mg/dL (7-23) Creatinine 1.4 mg/dL (0.5-0.9) H Estimat Glomerular Filtration Rate mL/min (>60) Glucose Level 87 mg/dL (74-106) Calcium Level 9.9 mg/dL (8.6-10.2) Pro-B-Type Natriuretic Peptide 2533 pg/mL (0-450) H Microbiology Date/Time Source Procedure Growth Status 08/26/16 22:05 Blood Blood Culture - Preliminary NO GROWTH AFTER 24 HOURS Resulted 08/26/16 21:50 Blood Blood Culture - Preliminary NO GROWTH AFTER 24 HOURS Resulted KRYSTEN RAMEY Aug 28, 2016 14:35
--- NOTE | 2016-08-28 14:52 | Diagnostic Imaging Report ---
Indication:Elevated Bun and Creatinine. Technique: Grayscale and duplex Doppler imaging of the kidneys performed. Comparison: None Findings: Multiple cysts are demonstrated within the left kidney. The largest is about 4.8 x 2.4 cm. There is no hydronephrosis demonstrated. Cortical echogenicity is normal bilaterally. IVC and urinary bladder are unremarkable. There is a Araujo catheter present. Both kidneys measure between 8 and 9 cm in length. Impression: Multiple cysts within the left kidney. Borderline small kidneys
[2016-08-28 16:00] VITALS: BP 118/48
--- NOTE | 2016-08-28 16:18 | Consultation ---
DATE OF CONSULTATION: 08/27/2016 CARDIAC CONSULTATION: REFERRING PHYSICIAN: Lj Craig M.D. CONSULTING PHYSICIAN: Gilmer Ortega M.D. REASON FOR EVALUATION: Congestive heart failure. HISTORY OF PRESENT ILLNESS: This is an elderly 86-year-old female who has history of multiple medical problems and has been admitted to the hospital here at [facility] because of shortness of breath. She has had chronic shortness of breath and chronic orthopnea . No PND episodes. She has no pain or pressure. She has occasional dizziness and she has fallen several times she states. PAST MEDICAL HISTORY: According to the records, she is positive for history of CHF. She has had a history of heart block, for which she has undergone a permanent pacemaker implantation; history of hypertension, hyperlipidemia, chronic renal insufficiency, paroxysmal episodes of atrial fibrillation, gastroesophageal reflux disease, and sick sinus syndrome. 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 ALLERGIES: She is not allergic to any medications. SOCIAL HISTORY: She does not smoke. She does occasionally drink beer although she has not done so recently. REVIEW OF SYSTEMS: Gastrointestinal: She denies any nausea or vomiting at this time. No bloody stools or black tarry stools now, . Genitourinary: Denies any burning on urination. Pulmonary: Denies cough or wheezing. Constitutional: She feels hot and cold intermittently. Neurologic: She has had problems with balance, dizziness, and frequent falls. PHYSICAL EXAMINATION: GENERAL: An elderly female in no apparent respiratory distress. NECK: Supple. There is some jugular venous distention. LUNGS: Wheezes and rhonchi. CARDIAC: Regular rate and rhythm. No heaves, thrills, or gallops noted. ABDOMEN: Soft and nontender. Positive bowel sounds. EXTREMITIES: There is no clubbing, cyanosis, or edema. NEUROLOGIC: She is awake, alert, responsive, and in no apparent distress. LABORATORY VALUES: White count 7.9, hemoglobin 10.4, and platelet count of 190,000. Hemoglobin is lower now than it was on prior occasions. Sodium is 138, potassium 4.2, chloride 94, bicarbonate 29, BUN 16, creatinine 1.1, glucose of 130, calcium is 9.8, and phosphorus 1.1. Troponin on two separate occasions is negative. ProBNP yesterday was 3800. Albumin 3.1 and lipase of 18. Coags - INR 1.3 and a PTT of 27. Urinalysis is 5 to 10 RBCs and 0 WBCs. IMAGING: Venous duplex study shows no evidence of deep venous thrombosis. She has had x-ray of the chest that shows interstitial disease in the setting of cardiomegaly some prominence of vascularity suggestive of congestive heart failure. She has had a CT scan of the chest, abdomen, and pelvis recently on 08/12/2016 that showed no definite significant abnormalities in the chest. There is a gas-filled esophagus pulling the left upper lobe. was found to be diseased, cardiomegaly. Pacemaker has been noted. Abdomen and pelvis, really no significant cholelithiasis has been noted. An echocardiogram has been performed that is a technically difficult study poor acoustic window, mild feet enlargement. The wall motion is normal except mid to distal septum and inferior wall, which may be actually related to the ejection fraction of 45% to 50% and moderate mitral regurgitation, mild diastolic relaxation abnormality, moderate tricuspid and pulmonary artery systolic pressures . Electrocardiogram shows atrial paced with delay in R-wave progression with T-wave inversions in V4, V5, and V6 being documented and/or comparison. Prior echocardiogram had showed ventricular pacing in January 2013 as well as 08/10/2016. Right now, these are ventricular paced rhythms. Echocardiogram previously in July had shown ejection fraction of 55% to 60% in at least preliminary report on 08/10/2016, but this was never apparently interpreted for final report in the chart. ASSESSMENT: 1. Congestive heart failure exacerbation. 2. Left ventricular systolic dysfunction, possibly related to ventricular pacing. 3. Abnormal electrocardiogram, possibly T-wave memory. 4. History of hypertension. 5. History of bladder cancer. 6. History of hyperlipidemia. this patient was seen in cardiac consultation. The patient has significant amount of wheezing and rhonchi. Chest x-ray findings are suggestive of an element of congestive heart failure, but there is some borderline EKG abnormality and echocardiographic abnormalities being noted. Agree with trial of diuretics. She had been on anticoagulation previously. She should be back on that medication if not contraindicated if truly was taken previously. EKG will be repeated for the time being. Gilmer Ortega M.D. DR: POLI JOB#: [id number] CC:
--- NOTE | 2016-08-28 17:49 | Cardiology Progress Note ---
Assessment/Plan Assessment/Plan 1. Congestive heart failure exacerbation. 2. Left ventricular systolic dysfunction too extensive to be ralted to pacing unkown chronicity 3. Abnormal electrocardiogram, possibly T-wave memory. 4. History of hypertension. 5. History of bladder cancer. 6. History of hyperlipidemia. 7. COPD echo personally reviewed there seems to be swam in [place] she indicated she has had mi previosuly this may be old old ekg reviewed were paced but yest ekg [place] vent conduction cristine cannot compare all torp have been neg since 2013 her lung exam is also abn suggestive of copd as well tele reviewed cannot perform ischemia eval since has pulm issues specially since no torp abn ep now following her pacer continue diuretics will need to swtich to acei instead of ccb [place] dc procardail start on acei wathc renal fucntion and k Subjective Cardiovascular: Reports: palpitations, Denies: chest pain, lightheadedness Respiratory: Reports: shortness of breath - better Gastrointestinal/Abdominal: Denies: abdominal pain Genitourinary: Denies: burning Objective Last 24 Hour Vital Signs Date Time Temp Pulse Resp B/P Pulse Ox O2 Delivery O2 Flow Rate FiO2 08/28/16 16:00 96.8 64 20 118/48 99 Nasal Cannula 2.5 08/28/16 12:00 96.3 61 19 111/51 97 Nasal Cannula 2.5 08/28/16 12:00 60 08/28/16 08:39 65 110/64 08/28/16 08:39 65 110/64 08/28/16 08:01 99 Nasal Cannula 3.0 32 08/28/16 08:01 63 19 Nasal Cannula 3.0 32 08/28/16 08:01 Nasal Cannula 3.0 32 08/28/16 08:00 64 08/28/16 08:00 97.8 65 19 110/64 100 Nasal Cannula 2.5 08/28/16 04:00 97.4 72 20 108/46 100 Nasal Cannula 3.0 08/28/16 03:48 60 08/28/16 03:21 3.0 32 08/28/16 01:31 98 3.0 32 08/28/16 00:19 62 08/28/16 00:00 97.0 62 20 117/45 100 Nasal Cannula 3.0 08/27/16 20:46 60 132/50 08/27/16 20:00 97.1 73 18 130/51 98 Nasal Cannula 3.0 08/27/16 20:00 68 08/27/16 19:30 Nasal Cannula 3.0 32 08/27/16 19:30 60 98 3.0 32 08/27/16 19:30 98 Nasal Cannula 3.0 32 08/27/16 17:55 58 132/50 General Appearance: no apparent distress, alert Neck: supple Cardiovascular: normal rate, regular rhythm Respiratory/Chest: decreased breath sounds Abdomen: normal bowel sounds, non tender, soft Extremities: non-tender, no swelling Intake and Output 08/27/16 08/28/16 19:00 07:00 Intake Total 380 ml 300 ml Output Total 900 ml 1500 ml Balance -520 ml -1200 ml Intake Oral 380 ml 300 ml Output Urine Total 900 ml 1500 ml # Voids 2 # Bowel Movements 2 Laboratory Tests Test 08/28/16 04:15 White Blood Count 7.6 K/UL (4.8-10.8) Red Blood Count 4.06 M/UL (4.20-5.40) L Hemoglobin 12.6 G/DL (12.0-16.0) Hematocrit 38.7 % (37.0-47.0) Mean Corpuscular Volume 95 FL (80-99) # Mean Corpuscular Hemoglobin 31.1 PG (27.0-31.0) H Mean Corpuscular Hemoglobin Concent 32.6 G/DL (32.0-36.0) Red Cell Distribution Width 13.4 % (11.6-14.8) Platelet Count 216 K/UL (150-450) Mean Platelet Volume 7.5 FL (6.5-10.1) Neutrophils (%) (Auto) 58.4 % (45.0-75.0) Lymphocytes (%) (Auto) 28.5 % (20.0-45.0) Monocytes (%) (Auto) 8.0 % (1.0-10.0) Eosinophils (%) (Auto) 4.2 % (0.0-3.0) H Basophils (%) (Auto) 0.9 % (0.0-2.0) Sodium Level 143 mEQ/L (135-145) Potassium Level 4.1 mEQ/L (3.4-4.9) Chloride Level 101 mEQ/L (98-107) Carbon Dioxide Level 27 mEQ/L (20-30) Anion Gap 15 (5-15) Blood Urea Nitrogen 21 mg/dL (7-23) Creatinine 1.4 mg/dL (0.5-0.9) H Estimat Glomerular Filtration Rate mL/min (>60) Glucose Level 87 mg/dL (74-106) Calcium Level 9.9 mg/dL (8.6-10.2) Pro-B-Type Natriuretic Peptide 2533 pg/mL (0-450) H Microbiology Date/Time Source Procedure Growth Status 08/26/16 22:05 Blood Blood Culture - Preliminary NO GROWTH AFTER 24 HOURS Resulted 08/26/16 21:50 Blood Blood Culture - Preliminary NO GROWTH AFTER 24 HOURS Resulted CATALINA SAN Aug 28, 2016 17:49
[2016-08-28 19:00] VITALS: BP 135/49
--- NOTE | 2016-08-28 23:18 | Consultation ---
DATE OF CONSULTATION: 08/28/2016 ELECTROPHYSIOLOGY CONSULTATION REFERRING PHYSICIAN: Fredy Benjamin M.D. ADDITIONAL REFERRING PHYSICIAN: Tip Parry M.D. REASON FOR THE CONSULTATION: Evaluation of the patient's pacemaker management of atrial fibrillation. HISTORY OF PRESENT ILLNESS: The patient is an 86-year-old -Prydeinig lady with a history of hypertension and paroxysmal atrial fibrillation, history of permanent pacemaker placement, who was brought to the emergency room complaining of increasing shortness of breath. The patient was apparently recently admitted to the hospital from 08/10/2016 to 08/15/2016. The patient was admitted and received IV Lasix and had echocardiogram, which showed ejection fraction of 45% to 50%. Her EKG showed intermittent ventricular pacing. The telemetry strip showed occasionally atrial pacemaker, sometimes not captured. Cardiac electrophysiology consultation was obtained to make sure the pacemaker is functioning normally. REVIEW OF SYSTEMS: Performed and was negative other than what was mentioned in the history of present illness. PAST MEDICAL HISTORY: 1. Hypertension. 2. Paroxysmal atrial fibrillation. 3. History of permanent pacemaker placement. 4. COPD. 5. Bladder cancer remission. 6. Degenerative joint disease. MEDICATIONS: As per reconciliation included, 1. Cardizem 60 mg b.i.d. 2. Metoprolol 25 mg b.i.d. 3. Crestor. SOCIAL HISTORY: She lives at home with her daughter and does not smoke or drink alcohol. PHYSICAL EXAMINATION: VITAL SIGNS: Blood pressure is 150/61, pulse 61, respirations 18, and temperature 96.3. HEAD AND NECK: No JVD. LUNGS: Coarse rhonchi. CARDIOVASCULAR: Regular S1 and S2 with no gallop or murmur. Pacemaker in the left subclavian. ABDOMEN: Soft. EXTREMITIES: No pitting edema noted. LABORATORY DATA: White count 7.6, hemoglobin 12.4, hematocrit 38.7, and platelet count 216,000. Sodium is 142, potassium 4.1, BUN of 21, and creatinine 1.4. Troponin negative x2. BNP 2533. ASSESSMENT AND PLAN: 1. Status post a permanent pacemaker implantation with questionable pacemaker malfunction. We will find the brand of the pacemaker and try to interrogate that for further evaluation. 2. Paroxysmal atrial fibrillation. We will interrogate the pacemaker. We will find out about atrial fibrillation. 3. Currently off anticoagulation and rate controlled on metoprolol 25 mg b.i.d. 4. Hypertension on metoprolol 25 mg b.i.d. and Procardia XL 90 mg daily as well as Lasix 40 mg IV every 8 hours. 5. Congestive heart failure. Ejection fraction of 45%. The patient will be on Lasix. 6. The patient's anticoagulation was held in the past GI bleed. Thank very much, Dr. Benjamin and Dr. Parry, for allowing me to participate in the care of this patient. Please do not hesitate to contact me for any questions regarding my evaluation. Andrey Serna M.D. DR: TERRY JOB#: [id number] CC:
[2016-08-29] VITALS: BP 116/54
[2016-08-29 00:01] LABS: TROPONIN I < 0.30 ng/mL (<=0.30)
[2016-08-29 04:00] VITALS: BP 118/50
[2016-08-29 06:24] LABS: BASOPHILS % (AUTO) 1.2 % (0.0-2.0); EOSINOPHILS % (AUTO) 4.1 % (0.0-3.0); MEAN CORPUSCULAR HEMOGLOBIN 30.8 PG (27.0-31.0); MEAN CORPUSCULAR HGB CONC 32.5 G/DL (32.0-36.0); MEAN CORPUSCULAR VOLUME 95 FL (80-99); MEAN PLATELET VOLUME 6.7 FL (6.5-10.1); MONOCYTES % (AUTO) 8.5 % (1.0-10.0); NEUTROPHILS % (AUTO) 61.3 % (45.0-75.0); PLATELET COUNT 240 K/UL (150-450); RED BLOOD COUNT 4.05 M/UL (4.20-5.40); RED CELL DISTRIBUTION WIDTH 13.6 % (11.6-14.8); WHITE BLOOD COUNT 8.4 K/UL (4.8-10.8)
[2016-08-29 06:55] LABS: ANION GAP 14 (5-15); CALCIUM 9.7 mg/dL (8.6-10.2); CARBON DIOXIDE 30 mEQ/L (20-30); CHLORIDE 97 mEQ/L (98-107); CREATININE 1.4 mg/dL (0.5-0.9); HEMOLYSIS 10; POTASSIUM 3.7 mEQ/L (3.4-4.9); SODIUM 141 mEQ/L (135-145)
[2016-08-29 08:00] VITALS: BP 109/45
--- NOTE | 2016-08-29 08:29 | Cardiology Report ---
APPROVED REPORT EKG Measurement Heart [id number] Sinus rhythm with demand pacing Anteroseptal infarct, age undetermined Abnormal ECG
[2016-08-29] MEDS: Metoprolol 25mg tab ORAL SCH ×2 (08:50→20:32)
[2016-08-29] MEDS: Heparin 5000 units/ml inj SUBQ SCH ×2 (08:51→20:32)
[2016-08-29] MEDS: Lisinopril 10mg tab ORAL SCH (08:52)
[2016-08-29 12:00] VITALS: BP 110/51
--- NOTE | 2016-08-29 12:30 | Diagnostic Imaging Report ---
APPROVED REPORT CPT Code: 48662 Present Symptoms Shortness of breath BILATERAL: Imaging reveals a patent deep venous system bilaterally. There is no evidence of thrombus within the femoral, popliteal or tibial segments. The greater saphenous veins are also within normal limits. Doppler indicates normal spontaneous flow within these segments.
--- NOTE | 2016-08-29 13:32 | Pulmonology Progress Note ---
Assessment/Plan Problems: (1) Respiratory failure, acute (2) Pulmonary edema (3) Atrial fibrillation (4) COPD (chronic obstructive pulmonary disease) (5) Pacemaker (6) HTN (hypertension) Assessment/Plan improving slowly diuresing well on Lasix IV check bun/ creatinine daily cardioloy NOTES reviewed fine tuning cardiac meds f/u intake and output cardio evaluation requested tolerating off bipap diuretics check electrolytes titrate fio2 to sat of 92% Subjective ROS Limited/Unobtainable: Yes Interval Events: late note for 08/28/16, less short of breath on face mask Allergies: Coded Allergies: No Known Allergies (Verified , 03/30/09) Objective Last 24 Hour Vital Signs Date Time Temp Pulse Resp B/P Pulse Ox O2 Delivery O2 Flow Rate FiO2 08/29/16 08:52 109/45 08/29/16 08:50 65 109/45 08/29/16 08:00 96.3 65 20 109/45 100 Nasal Cannula 3.0 08/29/16 08:00 60 08/29/16 07:10 98 Nasal Cannula 3.0 32 08/29/16 07:10 Nasal Cannula 3.0 32 08/29/16 04:00 97.4 60 20 118/50 99 Nasal Cannula 4.0 08/29/16 04:00 60 08/29/16 00:00 97.0 60 20 116/54 99 Nasal Cannula 2.0 08/29/16 00:00 61 08/28/16 21:40 68 135/68 08/28/16 20:00 62 08/28/16 19:03 98 Nasal Cannula 3.0 32 08/28/16 19:03 Nasal Cannula 3.0 32 08/28/16 19:00 97.0 68 20 135/49 99 Nasal Cannula 3.0 08/28/16 16:00 79 08/28/16 16:00 96.8 64 20 118/48 99 Nasal Cannula 2.5 Intake and Output 08/28/16 08/29/16 19:00 07:00 Intake Total 240 ml Output Total 425 ml 1000 ml Balance -425 ml -760 ml Intake Oral 240 ml Output Urine Total 425 ml 1000 ml General Appearance: cachetic HEENT: normocephalic, atraumatic Respiratory/Chest: chest wall non-tender, lungs clear, decreased breath sounds , crackles/rales Cardiovascular: normal peripheral pulses, normal rate Genitourinary: normal external genitalia Extremities: no cyanosis Skin: no rash Neurologic/Psychiatric: a operator II-XII grossly normal, no motor/sensory deficits Lymphatic: no neck adenopathy Microbiology Date/Time Source Procedure Growth Status 08/26/16 22:05 Blood Blood Culture - Preliminary NO GROWTH AFTER 48 HOURS Resulted 08/26/16 21:50 Blood Blood Culture - Preliminary NO GROWTH AFTER 48 HOURS Resulted 08/26/16 23:21 Nasal Nares MRSA Culture - Final NO METHICILLIN RESISTANT STAPH AUREUS... Complete 08/26/16 23:21 Rectum VRE Culture - Final NO VANCOMYCIN RESISTANT ENTEROCOCCUS ... Complete Laboratory Tests 08/28/16 23:30: Troponin I < 0.30 08/29/16 03:50: White Blood Count 8.4, Red Blood Count 4.05L, Hemoglobin 12.5, Hematocrit 38.5, Mean Corpuscular Volume 95, Mean Corpuscular Hemoglobin 30.8, Mean Corpuscular Hemoglobin Concent 32.5, Red Cell Distribution Width 13.6, Platelet Count 240, Mean Platelet Volume 6.7, Neutrophils (%) (Auto) 61.3, Lymphocytes (%) (Auto) 25.0, Monocytes (%) (Auto) 8.5, Eosinophils (%) (Auto) 4.1H, Basophils (%) (Auto ) 1.2, Sodium Level 141, Potassium Level 3.7, Chloride Level 97L, Carbon Dioxide Level 30, Anion Gap 14, Blood Urea Nitrogen 29H, Creatinine 1.4H, Estimat Glomerular Filtration Rate , Glucose Level 78, Calcium Level 9.7, Pro-B- Type Natriuretic Peptide 1118H Current Medications Medications (Trade) Dose Ordered Sig/Tricia Route PRN Reason Start Time Stop Time Status Last Admin Dose Admin Acetaminophen (Tylenol) 650 mg Q4H PRN ORAL Fever 08/26/16 23:30 09/25/16 23:29 Albuterol/ Ipratropium (DuoNeb 0.5-3(2.5)mg/3ml) 3 ml Q4H PRN HHN Shortness of Breath 08/26/16 23:30 08/31/16 23:29 Dextrose (Dextrose 50%) STAT PRN IV Hypoglycemia 08/26/16 23:30 09/25/16 23:29 Furosemide (Lasix) 40 mg EVERY 8 HOURS IV 08/27/16 14:00 09/26/16 13:59 08/29/16 06:21 Heparin Sodium (Porcine) (Heparin 5000 units/ml) 5,000 units EVERY 12 HOURS SUBQ 08/27/16 09:00 09/26/16 08:59 08/29/16 08:51 Lisinopril (Zestril) 10 mg DAILY ORAL 08/29/16 09:00 09/28/16 08:59 08/29/16 08:52 Metoprolol Tartrate (Lopressor) 25 mg BID@0900,2100 ORAL 08/27/16 09:00 09/26/16 08:59 08/29/16 08:50 Ondansetron HCl (Zofran) 4 mg Q6H PRN IVP Nausea & Vomiting 08/26/16 23:30 09/25/16 23:29 Polyethylene Glycol (Miralax) 17 gm DAILYPRN PRN ORAL Constipation 08/26/16 23:30 09/25/16 23:29 Temazepam (Restoril) 15 mg HSPRN PRN ORAL Insomnia 08/26/16 23:30 09/02/16 23:29 AYDE ASHLEY Aug 29, 2016 13:32
--- NOTE | 2016-08-29 13:35 | Pulmonology Progress Note ---
Assessment/Plan Problems: (1) Respiratory failure, acute (2) Pulmonary edema (3) Atrial fibrillation (4) COPD (chronic obstructive pulmonary disease) (5) Pacemaker (6) HTN (hypertension) Assessment/Plan improving slowly hold lasix iv for now b/o increasing bun/ creatinine check bun/ creatinine daily check out pace maker fine tuning cardiac meds f/u intake and output check electrolytes titrate fio2 to sat of 92% check cxr today telemetry Subjective Interval Events: still coughing a lot Allergies: Coded Allergies: No Known Allergies (Verified , 03/30/09) Objective Last 24 Hour Vital Signs Date Time Temp Pulse Resp B/P Pulse Ox O2 Delivery O2 Flow Rate FiO2 08/29/16 08:52 109/45 08/29/16 08:50 65 109/45 08/29/16 08:00 96.3 65 20 109/45 100 Nasal Cannula 3.0 08/29/16 08:00 60 08/29/16 07:10 98 Nasal Cannula 3.0 32 08/29/16 07:10 Nasal Cannula 3.0 32 08/29/16 04:00 97.4 60 20 118/50 99 Nasal Cannula 4.0 08/29/16 04:00 60 08/29/16 00:00 97.0 60 20 116/54 99 Nasal Cannula 2.0 08/29/16 00:00 61 08/28/16 21:40 68 135/68 08/28/16 20:00 62 08/28/16 19:03 98 Nasal Cannula 3.0 32 08/28/16 19:03 Nasal Cannula 3.0 32 08/28/16 19:00 97.0 68 20 135/49 99 Nasal Cannula 3.0 08/28/16 16:00 79 08/28/16 16:00 96.8 64 20 118/48 99 Nasal Cannula 2.5 Intake and Output 08/28/16 08/29/16 19:00 07:00 Intake Total 240 ml Output Total 425 ml 1000 ml Balance -425 ml -760 ml Intake Oral 240 ml Output Urine Total 425 ml 1000 ml General Appearance: cachetic HEENT: normocephalic, atraumatic Respiratory/Chest: chest wall non-tender, decreased breath sounds, crackles/ rales Cardiovascular: normal peripheral pulses, normal rate Abdomen: normal bowel sounds, soft, non tender Genitourinary: normal external genitalia Extremities: no cyanosis Skin: no rash Microbiology Date/Time Source Procedure Growth Status 08/26/16 22:05 Blood Blood Culture - Preliminary NO GROWTH AFTER 48 HOURS Resulted 08/26/16 21:50 Blood Blood Culture - Preliminary NO GROWTH AFTER 48 HOURS Resulted 08/26/16 23:21 Nasal Nares MRSA Culture - Final NO METHICILLIN RESISTANT STAPH AUREUS... Complete 08/26/16 23:21 Rectum VRE Culture - Final NO VANCOMYCIN RESISTANT ENTEROCOCCUS ... Complete Laboratory Tests 08/28/16 23:30: Troponin I < 0.30 08/29/16 03:50: White Blood Count 8.4, Red Blood Count 4.05L, Hemoglobin 12.5, Hematocrit 38.5, Mean Corpuscular Volume 95, Mean Corpuscular Hemoglobin 30.8, Mean Corpuscular Hemoglobin Concent 32.5, Red Cell Distribution Width 13.6, Platelet Count 240, Mean Platelet Volume 6.7, Neutrophils (%) (Auto) 61.3, Lymphocytes (%) (Auto) 25.0, Monocytes (%) (Auto) 8.5, Eosinophils (%) (Auto) 4.1H, Basophils (%) (Auto ) 1.2, Sodium Level 141, Potassium Level 3.7, Chloride Level 97L, Carbon Dioxide Level 30, Anion Gap 14, Blood Urea Nitrogen 29H, Creatinine 1.4H, Estimat Glomerular Filtration Rate , Glucose Level 78, Calcium Level 9.7, Pro-B- Type Natriuretic Peptide 1118H Current Medications Medications (Trade) Dose Ordered Sig/Tricia Route PRN Reason Start Time Stop Time Status Last Admin Dose Admin Acetaminophen (Tylenol) 650 mg Q4H PRN ORAL Fever 08/26/16 23:30 09/25/16 23:29 Albuterol/ Ipratropium (DuoNeb 0.5-3(2.5)mg/3ml) 3 ml Q4H PRN HHN Shortness of Breath 08/26/16 23:30 08/31/16 23:29 Dextrose (Dextrose 50%) STAT PRN IV Hypoglycemia 08/26/16 23:30 09/25/16 23:29 Furosemide (Lasix) 40 mg EVERY 8 HOURS IV 08/27/16 14:00 09/26/16 13:59 08/29/16 06:21 Heparin Sodium (Porcine) (Heparin 5000 units/ml) 5,000 units EVERY 12 HOURS SUBQ 08/27/16 09:00 09/26/16 08:59 08/29/16 08:51 Lisinopril (Zestril) 10 mg DAILY ORAL 08/29/16 09:00 09/28/16 08:59 08/29/16 08:52 Metoprolol Tartrate (Lopressor) 25 mg BID@0900,2100 ORAL 08/27/16 09:00 09/26/16 08:59 08/29/16 08:50 Ondansetron HCl (Zofran) 4 mg Q6H PRN IVP Nausea & Vomiting 08/26/16 23:30 09/25/16 23:29 Polyethylene Glycol (Miralax) 17 gm DAILYPRN PRN ORAL Constipation 08/26/16 23:30 09/25/16 23:29 Temazepam (Restoril) 15 mg HSPRN PRN ORAL Insomnia 08/26/16 23:30 09/02/16 23:29 AYDE ASHLEY Aug 29, 2016 13:35
--- NOTE | 2016-08-29 14:43 | Diagnostic Imaging Report ---
Indication: Chest Pain Comparison: 08/26/16 A single view chest radiograph was obtained. Findings: Heart is enlarged. Lungs appear clear. Right hemidiaphragm is elevated. Pacemaker again noted. Impression: Interval resolution of pulmonary edema
--- NOTE | 2016-08-29 15:57 | Cardiac Electrophysiology PN ---
Assessment/Plan Assessment/Plan 1. Status post a permanent pacemaker implantation Interrogation pending. 2. Paroxysmal atrial fibrillation. We will interrogate the pacemaker re burden of atrial fibrillation. Currently off anticoagulation for GI bleed hx and rate controlled on metoprolol 25 mg b.i.d. 3. Hypertension on metoprolol 25 mg b.i.d. and Lisinopril. Procardia XL and Lasix DCed per Dr Ortega 4. Congestive heart failure. Ejection fraction of 45%. DW Dr Benjamin at bedside Subjective Subjective Alert in NAD. Dr Benjamin at bedside. No chest pain. No SVT or VT Objective Last 24 Hour Vital Signs Date Time Temp Pulse Resp B/P Pulse Ox O2 Delivery O2 Flow Rate FiO2 08/29/16 12:00 96.4 20 110/51 100 Nasal Cannula 3.0 08/29/16 12:00 61 08/29/16 08:52 109/45 08/29/16 08:50 65 109/45 08/29/16 08:00 96.3 65 20 109/45 100 Nasal Cannula 3.0 08/29/16 08:00 60 08/29/16 07:10 98 Nasal Cannula 3.0 32 08/29/16 07:10 Nasal Cannula 3.0 32 08/29/16 04:00 97.4 60 20 118/50 99 Nasal Cannula 4.0 08/29/16 04:00 60 08/29/16 00:00 97.0 60 20 116/54 99 Nasal Cannula 2.0 08/29/16 00:00 61 08/28/16 21:40 68 135/68 08/28/16 20:00 62 08/28/16 19:03 98 Nasal Cannula 3.0 32 08/28/16 19:03 Nasal Cannula 3.0 32 08/28/16 19:00 97.0 68 20 135/49 99 Nasal Cannula 3.0 08/28/16 16:00 79 08/28/16 16:00 96.8 64 20 118/48 99 Nasal Cannula 2.5 Intake and Output 08/28/16 08/29/16 19:00 07:00 Intake Total 240 ml Output Total 425 ml 1000 ml Balance -425 ml -760 ml Intake Oral 240 ml Output Urine Total 425 ml 1000 ml Laboratory Tests Test 08/28/16 23:30 08/29/16 03:50 Troponin I < 0.30 ng/mL (<=0.30) White Blood Count 8.4 K/UL (4.8-10.8) Red Blood Count 4.05 M/UL (4.20-5.40) L Hemoglobin 12.5 G/DL (12.0-16.0) Hematocrit 38.5 % (37.0-47.0) Mean Corpuscular Volume 95 FL (80-99) Mean Corpuscular Hemoglobin 30.8 PG (27.0-31.0) Mean Corpuscular Hemoglobin Concent 32.5 G/DL (32.0-36.0) Red Cell Distribution Width 13.6 % (11.6-14.8) Platelet Count 240 K/UL (150-450) Mean Platelet Volume 6.7 FL (6.5-10.1) Neutrophils (%) (Auto) 61.3 % (45.0-75.0) Lymphocytes (%) (Auto) 25.0 % (20.0-45.0) Monocytes (%) (Auto) 8.5 % (1.0-10.0) Eosinophils (%) (Auto) 4.1 % (0.0-3.0) H Basophils (%) (Auto) 1.2 % (0.0-2.0) Sodium Level 141 mEQ/L (135-145) Potassium Level 3.7 mEQ/L (3.4-4.9) Chloride Level 97 mEQ/L (98-107) L Carbon Dioxide Level 30 mEQ/L (20-30) Anion Gap 14 (5-15) Blood Urea Nitrogen 29 mg/dL (7-23) H Creatinine 1.4 mg/dL (0.5-0.9) H Estimat Glomerular Filtration Rate mL/min (>60) Glucose Level 78 mg/dL (74-106) Calcium Level 9.7 mg/dL (8.6-10.2) Pro-B-Type Natriuretic Peptide 1118 pg/mL (0-450) H Microbiology Date/Time Source Procedure Growth Status 08/26/16 22:05 Blood Blood Culture - Preliminary NO GROWTH AFTER 48 HOURS Resulted 08/26/16 21:50 Blood Blood Culture - Preliminary NO GROWTH AFTER 48 HOURS Resulted 08/26/16 23:21 Nasal Nares MRSA Culture - Final NO METHICILLIN RESISTANT STAPH AUREUS... Complete 08/26/16 23:21 Rectum VRE Culture - Final NO VANCOMYCIN RESISTANT ENTEROCOCCUS ... Complete Objective HEAD AND NECK: No JVD. LUNGS: Coarse rhonchi. CARDIOVASCULAR: Regular S1 and S2 with no gallop or murmur. Pacemaker in the left subclavian. ABDOMEN: Soft. EXTREMITIES: No pitting edema noted. KRYSTEN RAMEY Aug 29, 2016 15:57
[2016-08-29 16:00] VITALS: BP 128/95
--- NOTE | 2016-08-29 19:10 | Internal Med Progress Note ---
Subjective Date of Service: Aug 29, 2016 Physician Name Leslie Paulino Attending Physician Fredy Benjamin MD Current Medications Medications (Trade) Dose Ordered Sig/Tricia Route PRN Reason Start Time Stop Time Status Last Admin Dose Admin Acetaminophen (Tylenol) 650 mg Q4H PRN ORAL Fever 08/26/16 23:30 09/25/16 23:29 Albuterol/ Ipratropium (DuoNeb 0.5-3(2.5)mg/3ml) 3 ml Q4H PRN HHN Shortness of Breath 08/26/16 23:30 08/31/16 23:29 Dextrose (Dextrose 50%) STAT PRN IV Hypoglycemia 08/26/16 23:30 09/25/16 23:29 Heparin Sodium (Porcine) (Heparin 5000 units/ml) 5,000 units EVERY 12 HOURS SUBQ 08/27/16 09:00 09/26/16 08:59 08/29/16 08:51 Levofloxacin (Levaquin) 100 ml @ 100 mls/hr Q48H IVPB 08/29/16 16:00 09/05/16 15:59 08/29/16 17:22 Lisinopril 10 mg 10 mg DAILY ORAL 08/29/16 09:00 09/28/16 08:59 08/29/16 08:52 Metoprolol Tartrate (Lopressor) 25 mg BID@0900,2100 ORAL 08/27/16 09:00 09/26/16 08:59 08/29/16 08:50 Ondansetron HCl (Zofran) 4 mg Q6H PRN IVP Nausea & Vomiting 08/26/16 23:30 09/25/16 23:29 Polyethylene Glycol (Miralax) 17 gm DAILYPRN PRN ORAL Constipation 08/26/16 23:30 09/25/16 23:29 Temazepam (Restoril) 15 mg HSPRN PRN ORAL Insomnia 08/26/16 23:30 09/02/16 23:29 Allergies: Coded Allergies: No Known Allergies (Verified , 03/30/09) ROS Limited/Unobtainable: No Constitutional: Reports: no symptoms HEENT: Reports: no symptoms Cardiovascular: Reports: no symptoms Respiratory: Reports: shortness of breath Gastrointestinal/Abdominal: Reports: no symptoms Genitourinary: Reports: no symptoms Neurologic/Psychiatric: Reports: no symptoms Subjective 86 YO F admitted with shortness of breath. Now COPD exacerbation and CHF. Cover for Int Daryl-Dr Benjamin. Awiat pacemaker interrogation. Tolerating nasal canula. Objective Last Vital Signs Date Time Temp Pulse Resp B/P Pulse Ox O2 Delivery O2 Flow Rate FiO2 08/29/16 16:00 97.0 66 18 128/95 99 Nasal Cannula 2.0 08/29/16 07:10 32 Laboratory Tests Test 08/28/16 23:30 08/29/16 03:50 Troponin I < 0.30 ng/mL (<=0.30) White Blood Count 8.4 K/UL (4.8-10.8) Red Blood Count 4.05 M/UL (4.20-5.40) L Hemoglobin 12.5 G/DL (12.0-16.0) Hematocrit 38.5 % (37.0-47.0) Mean Corpuscular Volume 95 FL (80-99) Mean Corpuscular Hemoglobin 30.8 PG (27.0-31.0) Mean Corpuscular Hemoglobin Concent 32.5 G/DL (32.0-36.0) Red Cell Distribution Width 13.6 % (11.6-14.8) Platelet Count 240 K/UL (150-450) Mean Platelet Volume 6.7 FL (6.5-10.1) Neutrophils (%) (Auto) 61.3 % (45.0-75.0) Lymphocytes (%) (Auto) 25.0 % (20.0-45.0) Monocytes (%) (Auto) 8.5 % (1.0-10.0) Eosinophils (%) (Auto) 4.1 % (0.0-3.0) H Basophils (%) (Auto) 1.2 % (0.0-2.0) Sodium Level 141 mEQ/L (135-145) Potassium Level 3.7 mEQ/L (3.4-4.9) Chloride Level 97 mEQ/L (98-107) L Carbon Dioxide Level 30 mEQ/L (20-30) Anion Gap 14 (5-15) Blood Urea Nitrogen 29 mg/dL (7-23) H Creatinine 1.4 mg/dL (0.5-0.9) H Estimat Glomerular Filtration Rate mL/min (>60) Glucose Level 78 mg/dL (74-106) Calcium Level 9.7 mg/dL (8.6-10.2) Pro-B-Type Natriuretic Peptide 1118 pg/mL (0-450) H Microbiology Date/Time Source Procedure Growth Status 08/26/16 22:05 Blood Blood Culture - Preliminary NO GROWTH AFTER 48 HOURS Resulted 08/26/16 21:50 Blood Blood Culture - Preliminary NO GROWTH AFTER 48 HOURS Resulted 08/26/16 23:21 Nasal Nares MRSA Culture - Final NO METHICILLIN RESISTANT STAPH AUREUS... Complete 08/26/16 23:21 Rectum VRE Culture - Final NO VANCOMYCIN RESISTANT ENTEROCOCCUS ... Complete Intake and Output 08/28/16 08/29/16 19:00 07:00 Intake Total 240 ml Output Total 425 ml 1000 ml Balance -425 ml -760 ml Intake Oral 240 ml Output Urine Total 425 ml 1000 ml Objective General Appearance: alert, mild distress, thin EENT: PERRL/EOMI, normal ENT inspection Neck: non-tender, normal alignment, supple, normal inspection Cardiovascular: normal peripheral pulses, no gallop/murmur, no JVD, irregularly irregular Respiratory/Chest: chest wall non-tender, accessory muscle use, crackles/rales , rhonchi - bilaterally, expiratory wheezing Abdomen: normal bowel sounds, non tender, soft, no organomegaly, no mass Extremities: normal range of motion Neurologic: hospice rn II-XII grossly normal, no motor/sensory deficits Skin: normal pigmentation, warm/dry Assessment/Plan Problem List: (1) Shortness of breath Assessment & Plan: Due to COPD below. (2) COPD (chronic obstructive pulmonary disease) Assessment & Plan: Acute exacerbation-See pulmonary note. (3) Atrial fibrillation Assessment & Plan: Restart eliquis per cardiology. Await pacemaker interrogation. (4) Sick sinus syndrome Assessment & Plan: S/P pacemaker-see cardiology note. (5) HTN (hypertension) Assessment & Plan: Continue lopressor and procardia (6) Pacemaker (7) Congestive heart failure Assessment & Plan: Continue lasix per cardiology Status: progressing LESLIE PAULINO Aug 29, 2016 19:10
[2016-08-29 20:00] VITALS: BP 126/53
--- NOTE | 2016-08-29 21:11 | Cardiology Progress Note ---
Assessment/Plan Assessment/Plan 1. Congestive heart failure exacerbation. 2. Left ventricular systolic dysfunction too extensive to be ralted to pacing unkown chronicity 3. Abnormal electrocardiogram, possibly T-wave memory. 4. History of hypertension. 5. History of bladder cancer. 6. History of hyperlipidemia. 7. COPD echo personally reviewed there seems to be swam in [place] she indicated she has had mi previosuly this may be old all torp have been neg since 2012 tele reviewed cannot perform ischemia eval since has pulm issues specially since no torp abn dr wilks input noted hr seem fine but will observe pulm response to bb santiago need lasix po soon ef is probably less than 40% on my reading Subjective Cardiovascular: Reports: lightheadedness - mild , Denies: chest pain Respiratory: Denies: shortness of breath Gastrointestinal/Abdominal: Denies: abdominal pain Genitourinary: Denies: burning Objective Last 24 Hour Vital Signs Date Time Temp Pulse Resp B/P Pulse Ox O2 Delivery O2 Flow Rate FiO2 08/29/16 20:32 72 126/53 08/29/16 20:00 96.8 72 18 126/53 98 Nasal Cannula 2.0 08/29/16 19:11 97 Room Air 08/29/16 19:11 Nasal Cannula 2.0 28 08/29/16 16:00 97.0 66 18 128/95 99 Nasal Cannula 2.0 08/29/16 15:24 67 08/29/16 12:00 96.4 20 110/51 100 Nasal Cannula 3.0 08/29/16 12:00 61 08/29/16 08:52 109/45 08/29/16 08:50 65 109/45 08/29/16 08:00 96.3 65 20 109/45 100 Nasal Cannula 3.0 08/29/16 08:00 60 08/29/16 07:10 98 Nasal Cannula 3.0 32 08/29/16 07:10 Nasal Cannula 3.0 32 08/29/16 04:00 97.4 60 20 118/50 99 Nasal Cannula 4.0 08/29/16 04:00 60 08/29/16 00:00 97.0 60 20 116/54 99 Nasal Cannula 2.0 08/29/16 00:00 61 08/28/16 21:40 68 135/68 General Appearance: no apparent distress Neck: supple Cardiovascular: normal rate, regular rhythm Respiratory/Chest: crackles/rales, expiratory wheezing Abdomen: normal bowel sounds, non tender, soft Extremities: no swelling Intake and Output 08/28/16 08/29/16 19:00 07:00 Intake Total 240 ml Output Total 425 ml 1000 ml Balance -425 ml -760 ml Intake Oral 240 ml Output Urine Total 425 ml 1000 ml Laboratory Tests Test 08/28/16 23:30 08/29/16 03:50 Troponin I < 0.30 ng/mL (<=0.30) White Blood Count 8.4 K/UL (4.8-10.8) Red Blood Count 4.05 M/UL (4.20-5.40) L Hemoglobin 12.5 G/DL (12.0-16.0) Hematocrit 38.5 % (37.0-47.0) Mean Corpuscular Volume 95 FL (80-99) Mean Corpuscular Hemoglobin 30.8 PG (27.0-31.0) Mean Corpuscular Hemoglobin Concent 32.5 G/DL (32.0-36.0) Red Cell Distribution Width 13.6 % (11.6-14.8) Platelet Count 240 K/UL (150-450) Mean Platelet Volume 6.7 FL (6.5-10.1) Neutrophils (%) (Auto) 61.3 % (45.0-75.0) Lymphocytes (%) (Auto) 25.0 % (20.0-45.0) Monocytes (%) (Auto) 8.5 % (1.0-10.0) Eosinophils (%) (Auto) 4.1 % (0.0-3.0) H Basophils (%) (Auto) 1.2 % (0.0-2.0) Sodium Level 141 mEQ/L (135-145) Potassium Level 3.7 mEQ/L (3.4-4.9) Chloride Level 97 mEQ/L (98-107) L Carbon Dioxide Level 30 mEQ/L (20-30) Anion Gap 14 (5-15) Blood Urea Nitrogen 29 mg/dL (7-23) H Creatinine 1.4 mg/dL (0.5-0.9) H Estimat Glomerular Filtration Rate mL/min (>60) Glucose Level 78 mg/dL (74-106) Calcium Level 9.7 mg/dL (8.6-10.2) Pro-B-Type Natriuretic Peptide 1118 pg/mL (0-450) H Microbiology Date/Time Source Procedure Growth Status 08/26/16 22:05 Blood Blood Culture - Preliminary NO GROWTH AFTER 48 HOURS Resulted 08/26/16 21:50 Blood Blood Culture - Preliminary NO GROWTH AFTER 48 HOURS Resulted 08/26/16 23:21 Nasal Nares MRSA Culture - Final NO METHICILLIN RESISTANT STAPH AUREUS... Complete 08/26/16 23:21 Rectum VRE Culture - Final NO VANCOMYCIN RESISTANT ENTEROCOCCUS ... Complete CATALINA SAN Aug 29, 2016 21:11
--- NOTE | 2016-08-29 23:13 | Consultation ---
Consult Note Consult Note [id number] GRADY CHANDLER M.D. Aug 29, 2016 23:13
[2016-08-30] VITALS: BP 118/43
--- NOTE | 2016-08-30 02:49 | Consultation ---
DATE OF CONSULTATION: INFECTIOUS DISEASE CONSULTATION CONSULTING PHYSICIAN: Diego Santamaria M.D. REQUESTING PHYSICIAN: Lj Craig M.D. REASON FOR CONSULTATION: Evaluation of the patient for sepsis and antibiotic management. HISTORY OF PRESENT ILLNESS: The patient is an 86-year-old female with multiple medical problems, as listed below, who was admitted to this medical center due to shortness of breath and pneumonia. An Infectious Disease consultation has been requested for further evaluation of the patient and antibiotic management. The patient has a history of cough and shortness of breath. PAST MEDICAL HISTORY: Significant for, 1. Sick sinus syndrome. 2. COPD. 3. History of bladder cancer, in remission. 4. Hypertension. 5. Degenerative joint disease. 6. Status post pacemaker placement. ALLERGIES: No known drug allergies. SOCIAL HISTORY: No recent alcohol, drug abuse, or smoking. FAMILY HISTORY: Noncontributory. REVIEW OF SYSTEMS: A 10-point review was done and except what is mentioned has been negative. PHYSICAL EXAM: VITAL SIGNS: Temperature 96.8 degrees, blood pressure 126/ , pulse 86, and respirations 18. HEENT: Mild pale conjunctivae. No icterus. NECK: No lymphadenopathy. CHEST: Coarse breath sounds. Mild expiratory wheezes. HEART: S1 and S2. ABDOMEN: Soft. EXTREMITIES: No cyanosis. NEUROLOGIC: Awake. LABORATORY DATA: White blood cells 8.4, hemoglobin 12, and platelets 240,000. BUN 20 and creatinine 1.4. Blood culture is pending. Chest x-ray showed pulmonary edema. ASSESSMENT: The patient is an 86-year-old female, with multiple medical problems, who has been admitted to this medical center due to chronic obstructive pulmonary disease exacerbation. PLAN: 1. We will continue the patient on Levaquin for a total of five days. 2. Monitor CBC. 3. Monitor BMP. 4. Monitor cultures. 5. Monitor chest x-ray. 6. Based on the patient's clinical course and laboratories, we will do further recommendations. Thank you Dr. Craig and Dr. Parry for allowing me to participate in the care of this patient. I will follow the patient with you during this hospitalization. Diego Santamaria M.D. DR: JAYLEEN JOB#: [id number] CC:
[2016-08-30 04:00] VITALS: BP 117/47
[2016-08-30 06:04] LABS: BASOPHILS % (AUTO) 0.9 % (0.0-2.0); EOSINOPHILS % (AUTO) 3.9 % (0.0-3.0); LYMPHOCYTES % (AUTO) 21.3 % (20.0-45.0); MEAN CORPUSCULAR HEMOGLOBIN 30.7 PG (27.0-31.0); MEAN CORPUSCULAR HGB CONC 32.3 G/DL (32.0-36.0); MEAN CORPUSCULAR VOLUME 95 FL (80-99); MEAN PLATELET VOLUME 7.8 FL (6.5-10.1); MONOCYTES % (AUTO) 8.2 % (1.0-10.0); NEUTROPHILS % (AUTO) 65.7 % (45.0-75.0); PLATELET COUNT 223 K/UL (150-450); RED BLOOD COUNT 3.98 M/UL (4.20-5.40); RED CELL DISTRIBUTION WIDTH 13.6 % (11.6-14.8); WHITE BLOOD COUNT 8.5 K/UL (4.8-10.8)
[2016-08-30 06:44] LABS: ALANINE AMINOTRANSFERASE 6 U/L (3-33); ALBUMIN/GLOBULIN RATIO 0.9 (1.0-2.7); ANION GAP 15 (5-15); ASPARTATE AMINO TRANSFERASE 13 U/L (5-40); CALCIUM 9.8 mg/dL (8.6-10.2); CARBON DIOXIDE 29 mEQ/L (20-30); CHLORIDE 98 mEQ/L (98-107); CREATININE 1.9 mg/dL (0.5-0.9); HEMOLYSIS 5; POTASSIUM 3.9 mEQ/L (3.4-4.9); SODIUM 142 mEQ/L (135-145); TOTAL PROTEIN 6.7 g/dL (6.6-8.7)
[2016-08-30 08:00] VITALS: BP 105/73
[2016-08-30] MEDS: Heparin 5000 units/ml inj SUBQ SCH ×2 (08:52→21:14)
[2016-08-30] MEDS: Metoprolol 25mg tab ORAL SCH ×2 (11:16→21:13)
[2016-08-30] MEDS: Lisinopril 10mg tab ORAL SCH (11:16)
--- NOTE | 2016-08-30 11:58 | Infectious Diseases Prog Note ---
Assessment/Plan Assessment/Plan A: The patient is an 86-year-old female COPD exacerbation and pneumonia. Sick sinus syndrome COPD History of bladder cancer, in remission HTN Degenerative joint disease Status post pacemaker placement PLAN: l continue the patient on Levaquin d# 2/ 5 Monitor CBC. Monitor BMP. Monitor cultures. Monitor chest x-ray Subjective Constitutional: Denies: anorexia, chills, drenching sweats, fatigue, fever, no symptoms, other Respiratory: Reports: shortness of breath Allergies: Coded Allergies: No Known Allergies (Verified , 03/30/09) Objective Vital Signs Last 24 Hour Vital Signs Date Time Temp Pulse Resp B/P Pulse Ox O2 Delivery O2 Flow Rate FiO2 08/30/16 11:16 129/43 08/30/16 11:16 63 129/43 08/30/16 08:00 98.2 64 18 105/73 99 Nasal Cannula 3.0 08/30/16 07:46 Nasal Cannula 3.0 08/30/16 07:45 100 Nasal Cannula 3.0 08/30/16 04:13 60 08/30/16 04:00 97.0 65 20 117/47 100 Nasal Cannula 4.0 08/30/16 00:00 97.0 68 20 118/43 99 Nasal Cannula 4.0 08/29/16 23:43 64 08/29/16 20:32 72 126/53 08/29/16 20:00 96.8 72 18 126/53 98 Nasal Cannula 2.0 08/29/16 19:43 71 08/29/16 19:11 97 Room Air 08/29/16 19:11 Nasal Cannula 2.0 28 08/29/16 16:00 97.0 66 18 128/95 99 Nasal Cannula 2.0 08/29/16 15:24 67 08/29/16 12:00 96.4 20 110/51 100 Nasal Cannula 3.0 08/29/16 12:00 61 Height (Feet): 5 Height (Inches): 3.00 Weight (Pounds): 120 HEENT: atraumatic Respiratory/Chest: no accessory muscle use Cardiovascular: regularly irregular Abdomen: no mass Laboratory Tests Test 08/30/16 03:55 White Blood Count 8.5 K/UL (4.8-10.8) Red Blood Count 3.98 M/UL (4.20-5.40) L Hemoglobin 12.3 G/DL (12.0-16.0) Hematocrit 37.9 % (37.0-47.0) Mean Corpuscular Volume 95 FL (80-99) Mean Corpuscular Hemoglobin 30.7 PG (27.0-31.0) Mean Corpuscular Hemoglobin Concent 32.3 G/DL (32.0-36.0) Red Cell Distribution Width 13.6 % (11.6-14.8) Platelet Count 223 K/UL (150-450) Mean Platelet Volume 7.8 FL (6.5-10.1) Neutrophils (%) (Auto) 65.7 % (45.0-75.0) Lymphocytes (%) (Auto) 21.3 % (20.0-45.0) Monocytes (%) (Auto) 8.2 % (1.0-10.0) Eosinophils (%) (Auto) 3.9 % (0.0-3.0) H Basophils (%) (Auto) 0.9 % (0.0-2.0) Sodium Level 142 mEQ/L (135-145) Potassium Level 3.9 mEQ/L (3.4-4.9) Chloride Level 98 mEQ/L (98-107) Carbon Dioxide Level 29 mEQ/L (20-30) Anion Gap 15 (5-15) Blood Urea Nitrogen 36 mg/dL (7-23) H Creatinine 1.9 mg/dL (0.5-0.9) H Estimat Glomerular Filtration Rate mL/min (>60) Glucose Level 81 mg/dL (74-106) Calcium Level 9.8 mg/dL (8.6-10.2) Total Bilirubin 0.3 mg/dL (0.0-1.2) Aspartate Amino Transf (AST/SGOT) 13 U/L (5-40) Alanine Aminotransferase (ALT/SGPT) 6 U/L (3-33) Alkaline Phosphatase 63 U/L (35-104) Pro-B-Type Natriuretic Peptide 875 pg/mL (0-450) H Total Protein 6.7 g/dL (6.6-8.7) Albumin 3.2 g/dL (3.5-5.2) L Globulin 3.5 g/dL Albumin/Globulin Ratio 0.9 (1.0-2.7) L Current Medications Medications (Trade) Dose Ordered Sig/Tricia Route PRN Reason Start Time Stop Time Status Last Admin Dose Admin Acetaminophen (Tylenol) 650 mg Q4H PRN ORAL Fever 08/26/16 23:30 09/25/16 23:29 Albuterol/ Ipratropium (DuoNeb 0.5-3(2.5)mg/3ml) 3 ml Q4H PRN HHN Shortness of Breath 08/26/16 23:30 08/31/16 23:29 Dextrose (Dextrose 50%) STAT PRN IV Hypoglycemia 08/26/16 23:30 09/25/16 23:29 Heparin Sodium (Porcine) (Heparin 5000 units/ml) 5,000 units EVERY 12 HOURS SUBQ 08/27/16 09:00 09/26/16 08:59 08/30/16 08:52 Levofloxacin (Levaquin) 100 ml @ 100 mls/hr Q48H IVPB 08/29/16 16:00 09/05/16 15:59 08/29/16 17:22 Lisinopril 10 mg 10 mg DAILY ORAL 08/29/16 09:00 09/28/16 08:59 08/30/16 11:16 Metoprolol Tartrate (Lopressor) 25 mg BID@0900,2100 ORAL 08/27/16 09:00 09/26/16 08:59 08/30/16 11:16 Ondansetron HCl (Zofran) 4 mg Q6H PRN IVP Nausea & Vomiting 08/26/16 23:30 09/25/16 23:29 Polyethylene Glycol (Miralax) 17 gm DAILYPRN PRN ORAL Constipation 08/26/16 23:30 09/25/16 23:29 Temazepam (Restoril) 15 mg HSPRN PRN ORAL Insomnia 08/26/16 23:30 09/02/16 23:29 GRADY CHANDLER M.D. Aug 30, 2016 11:58
[2016-08-30 12:00] VITALS: BP 129/43
--- NOTE | 2016-08-30 12:35 | Pulmonology Progress Note ---
Assessment/Plan Problems: (1) Respiratory failure, acute (2) Pulmonary edema (3) Atrial fibrillation (4) COPD (chronic obstructive pulmonary disease) (5) Pacemaker (6) HTN (hypertension) Assessment/Plan improving slowly off laxis, because of rising bun/creatinine cxr got much better check bun/ creatinine daily check out pace maker fine tuning cardiac meds f/u intake and output check electrolytes titrate fio2 to sat of 92% check cxr today, reviewed, pulmonary edema resolved continue antibiotics telemetry Subjective Interval Events: looks comfortable Allergies: Coded Allergies: No Known Allergies (Verified , 03/30/09) Objective Last 24 Hour Vital Signs Date Time Temp Pulse Resp B/P Pulse Ox O2 Delivery O2 Flow Rate FiO2 08/30/16 12:00 96.8 72 20 129/43 97 Nasal Cannula 3.5 08/30/16 11:16 129/43 08/30/16 11:16 63 129/43 08/30/16 08:00 98.2 64 18 105/73 99 Nasal Cannula 3.0 08/30/16 07:46 Nasal Cannula 3.0 08/30/16 07:45 100 Nasal Cannula 3.0 08/30/16 04:13 60 08/30/16 04:00 97.0 65 20 117/47 100 Nasal Cannula 4.0 08/30/16 00:00 97.0 68 20 118/43 99 Nasal Cannula 4.0 08/29/16 23:43 64 08/29/16 20:32 72 126/53 08/29/16 20:00 96.8 72 18 126/53 98 Nasal Cannula 2.0 08/29/16 19:43 71 08/29/16 19:11 97 Room Air 08/29/16 19:11 Nasal Cannula 2.0 28 08/29/16 16:00 97.0 66 18 128/95 99 Nasal Cannula 2.0 08/29/16 15:24 67 Intake and Output 08/29/16 08/30/16 19:00 07:00 Intake Total 380 ml 120 ml Output Total 700 ml 400 ml Balance -320 ml -280 ml Intake Oral 280 ml 120 ml IV Total 100 ml Output Urine Total 700 ml 400 ml General Appearance: cachetic HEENT: normocephalic, atraumatic Respiratory/Chest: chest wall non-tender, lungs clear, rhonchi Cardiovascular: normal peripheral pulses, normal rate Abdomen: normal bowel sounds, soft, non tender Extremities: no cyanosis, no clubbing Skin: no lesions Laboratory Tests 08/30/16 03:55: White Blood Count 8.5, Red Blood Count 3.98L, Hemoglobin 12.3, Hematocrit 37.9, Mean Corpuscular Volume 95, Mean Corpuscular Hemoglobin 30.7, Mean Corpuscular Hemoglobin Concent 32.3, Red Cell Distribution Width 13.6, Platelet Count 223, Mean Platelet Volume 7.8, Neutrophils (%) (Auto) 65.7, Lymphocytes (%) (Auto) 21.3, Monocytes (%) (Auto) 8.2, Eosinophils (%) (Auto) 3.9H, Basophils (%) (Auto ) 0.9, Sodium Level 142, Potassium Level 3.9, Chloride Level 98, Carbon Dioxide Level 29, Anion Gap 15, Blood Urea Nitrogen 36H, Creatinine 1.9H, Estimat Glomerular Filtration Rate , Glucose Level 81, Calcium Level 9.8, Total Bilirubin 0.3, Aspartate Amino Transf (AST/SGOT) 13, Alanine Aminotransferase ( ALT/SGPT) 6, Alkaline Phosphatase 63, Pro-B-Type Natriuretic Peptide 875H, Total Protein 6.7, Albumin 3.2L, Globulin 3.5, Albumin/Globulin Ratio 0.9L Current Medications Medications (Trade) Dose Ordered Sig/Tricia Route PRN Reason Start Time Stop Time Status Last Admin Dose Admin Acetaminophen (Tylenol) 650 mg Q4H PRN ORAL Fever 08/26/16 23:30 09/25/16 23:29 Albuterol/ Ipratropium (DuoNeb 0.5-3(2.5)mg/3ml) 3 ml Q4H PRN HHN Shortness of Breath 08/26/16 23:30 08/31/16 23:29 Dextrose (Dextrose 50%) STAT PRN IV Hypoglycemia 08/26/16 23:30 09/25/16 23:29 Heparin Sodium (Porcine) (Heparin 5000 units/ml) 5,000 units EVERY 12 HOURS SUBQ 08/27/16 09:00 09/26/16 08:59 08/30/16 08:52 Levofloxacin (Levaquin) 100 ml @ 100 mls/hr Q48H IVPB 08/29/16 16:00 09/05/16 15:59 08/29/16 17:22 Lisinopril 10 mg 10 mg DAILY ORAL 08/29/16 09:00 09/28/16 08:59 08/30/16 11:16 Metoprolol Tartrate (Lopressor) 25 mg BID@0900,2100 ORAL 08/27/16 09:00 09/26/16 08:59 08/30/16 11:16 Ondansetron HCl (Zofran) 4 mg Q6H PRN IVP Nausea & Vomiting 08/26/16 23:30 09/25/16 23:29 Polyethylene Glycol (Miralax) 17 gm DAILYPRN PRN ORAL Constipation 08/26/16 23:30 09/25/16 23:29 Temazepam (Restoril) 15 mg HSPRN PRN ORAL Insomnia 08/26/16 23:30 09/02/16 23:29 AYDE ASHLEY Aug 30, 2016 12:35
--- NOTE | 2016-08-30 15:18 | Cardiac Electrophysiology PN ---
Assessment/Plan Assessment/Plan 1. Status post SJ permanent pacemaker implantation Interrogated and showed normal function. 2. Paroxysmal atrial fibrillation. Pacemaker interrogation showed NO atrial fibrillation. Currently off anticoagulation for GI bleed hx. Continue metoprolol 25 mg b.i.d. 3. Hypertension on metoprolol 25 mg b.i.d. and Lisinopril. 4. Congestive heart failure. Ejection fraction of 45%. DW Dr Benjamin at bedside Subjective Subjective Alert in NAD. Pacer was interrogated and showed Nl function. No chest pain. No SVT or VT Objective Last 24 Hour Vital Signs Date Time Temp Pulse Resp B/P Pulse Ox O2 Delivery O2 Flow Rate FiO2 08/30/16 12:00 60 08/30/16 12:00 96.8 72 20 129/43 97 Nasal Cannula 3.5 08/30/16 11:16 129/43 08/30/16 11:16 63 129/43 08/30/16 08:00 60 08/30/16 08:00 98.2 64 18 105/73 99 Nasal Cannula 3.0 08/30/16 07:46 Nasal Cannula 3.0 08/30/16 07:45 100 Nasal Cannula 3.0 08/30/16 04:13 60 08/30/16 04:00 97.0 65 20 117/47 100 Nasal Cannula 4.0 08/30/16 00:00 97.0 68 20 118/43 99 Nasal Cannula 4.0 08/29/16 23:43 64 08/29/16 20:32 72 126/53 08/29/16 20:00 96.8 72 18 126/53 98 Nasal Cannula 2.0 08/29/16 19:43 71 08/29/16 19:11 97 Room Air 08/29/16 19:11 Nasal Cannula 2.0 28 08/29/16 16:00 97.0 66 18 128/95 99 Nasal Cannula 2.0 08/29/16 15:24 67 Intake and Output 08/29/16 08/30/16 19:00 07:00 Intake Total 380 ml 120 ml Output Total 700 ml 400 ml Balance -320 ml -280 ml Intake Oral 280 ml 120 ml IV Total 100 ml Output Urine Total 700 ml 400 ml Laboratory Tests Test 08/30/16 03:55 White Blood Count 8.5 K/UL (4.8-10.8) Red Blood Count 3.98 M/UL (4.20-5.40) L Hemoglobin 12.3 G/DL (12.0-16.0) Hematocrit 37.9 % (37.0-47.0) Mean Corpuscular Volume 95 FL (80-99) Mean Corpuscular Hemoglobin 30.7 PG (27.0-31.0) Mean Corpuscular Hemoglobin Concent 32.3 G/DL (32.0-36.0) Red Cell Distribution Width 13.6 % (11.6-14.8) Platelet Count 223 K/UL (150-450) Mean Platelet Volume 7.8 FL (6.5-10.1) Neutrophils (%) (Auto) 65.7 % (45.0-75.0) Lymphocytes (%) (Auto) 21.3 % (20.0-45.0) Monocytes (%) (Auto) 8.2 % (1.0-10.0) Eosinophils (%) (Auto) 3.9 % (0.0-3.0) H Basophils (%) (Auto) 0.9 % (0.0-2.0) Sodium Level 142 mEQ/L (135-145) Potassium Level 3.9 mEQ/L (3.4-4.9) Chloride Level 98 mEQ/L (98-107) Carbon Dioxide Level 29 mEQ/L (20-30) Anion Gap 15 (5-15) Blood Urea Nitrogen 36 mg/dL (7-23) H Creatinine 1.9 mg/dL (0.5-0.9) H Estimat Glomerular Filtration Rate mL/min (>60) Glucose Level 81 mg/dL (74-106) Calcium Level 9.8 mg/dL (8.6-10.2) Total Bilirubin 0.3 mg/dL (0.0-1.2) Aspartate Amino Transf (AST/SGOT) 13 U/L (5-40) Alanine Aminotransferase (ALT/SGPT) 6 U/L (3-33) Alkaline Phosphatase 63 U/L (35-104) Pro-B-Type Natriuretic Peptide 875 pg/mL (0-450) H Total Protein 6.7 g/dL (6.6-8.7) Albumin 3.2 g/dL (3.5-5.2) L Globulin 3.5 g/dL Albumin/Globulin Ratio 0.9 (1.0-2.7) L Objective HEAD AND NECK: No JVD. LUNGS: Coarse rhonchi. CARDIOVASCULAR: Regular S1 and S2 with no murmur. Pacemaker in the left subclavian. ABDOMEN: Soft. EXTREMITIES: No pitting edema noted. KRYSTEN RAMEY Aug 30, 2016 15:18
--- NOTE | 2016-08-30 15:45 | Diagnostic Imaging Report ---
Indications: Cough, dyspnea Technique: Portable AP chest Findings: Comparison: 08/30/2016 Elevation of the right hemidiaphragm persists, obscuring the right mid and lower lung. Left lung remains clear. Cardiac silhouette remains enlarged. Pulmonary vasculature remains within normal limits. No new abnormality identified. IMPRESSION: No change from one day prior
[2016-08-30 16:00] VITALS: BP 129/48
--- NOTE | 2016-08-30 17:48 | Cardiology Progress Note ---
Assessment/Plan Assessment/Plan 1. Congestive heart failure exacerbation. 2. Left ventricular systolic dysfunction too extensive to be related to pacing unknown chronicity 3. Abnormal electrocardiogram, possibly T-wave memory. 4. History of hypertension. 5. History of bladder cancer. 6. History of hyperlipidemia. 7. COPD echo personally reviewed there seems to [place] she indicated she has had mi previously this may be old all torp have been neg since 2012 tele reviewed cannot perform ischemia eval since has pulm issues specially since no torp abn pacer showed no afib hr seem fine but will observe pulm response to bb po lasix as of tomorrow may need increaed as out pt ef is probably less than 40% on my reading plans for dc for tomorrow noted Subjective Cardiovascular: Denies: chest pain Respiratory: Reports: cough, shortness of breath Gastrointestinal/Abdominal: Denies: abdominal pain Genitourinary: Denies: burning Objective Last 24 Hour Vital Signs Date Time Temp Pulse Resp B/P Pulse Ox O2 Delivery O2 Flow Rate FiO2 08/30/16 12:00 60 08/30/16 12:00 96.8 72 20 129/43 97 Nasal Cannula 3.5 08/30/16 11:16 129/43 08/30/16 11:16 63 129/43 08/30/16 08:00 60 08/30/16 08:00 98.2 64 18 105/73 99 Nasal Cannula 3.0 08/30/16 07:46 Nasal Cannula 3.0 08/30/16 07:45 100 Nasal Cannula 3.0 08/30/16 04:13 60 08/30/16 04:00 97.0 65 20 117/47 100 Nasal Cannula 4.0 08/30/16 00:00 97.0 68 20 118/43 99 Nasal Cannula 4.0 08/29/16 23:43 64 08/29/16 20:32 72 126/53 08/29/16 20:00 96.8 72 18 126/53 98 Nasal Cannula 2.0 08/29/16 19:43 71 08/29/16 19:11 97 Room Air 08/29/16 19:11 Nasal Cannula 2.0 28 General Appearance: no apparent distress, alert Cardiovascular: normal rate, regular rhythm Respiratory/Chest: rhonchi - bilaterally, expiratory wheezing Abdomen: non tender, soft Extremities: no swelling Intake and Output 08/29/16 08/30/16 19:00 07:00 Intake Total 380 ml 120 ml Output Total 700 ml 400 ml Balance -320 ml -280 ml Intake Oral 280 ml 120 ml IV Total 100 ml Output Urine Total 700 ml 400 ml Laboratory Tests Test 08/30/16 03:55 White Blood Count 8.5 K/UL (4.8-10.8) Red Blood Count 3.98 M/UL (4.20-5.40) L Hemoglobin 12.3 G/DL (12.0-16.0) Hematocrit 37.9 % (37.0-47.0) Mean Corpuscular Volume 95 FL (80-99) Mean Corpuscular Hemoglobin 30.7 PG (27.0-31.0) Mean Corpuscular Hemoglobin Concent 32.3 G/DL (32.0-36.0) Red Cell Distribution Width 13.6 % (11.6-14.8) Platelet Count 223 K/UL (150-450) Mean Platelet Volume 7.8 FL (6.5-10.1) Neutrophils (%) (Auto) 65.7 % (45.0-75.0) Lymphocytes (%) (Auto) 21.3 % (20.0-45.0) Monocytes (%) (Auto) 8.2 % (1.0-10.0) Eosinophils (%) (Auto) 3.9 % (0.0-3.0) H Basophils (%) (Auto) 0.9 % (0.0-2.0) Sodium Level 142 mEQ/L (135-145) Potassium Level 3.9 mEQ/L (3.4-4.9) Chloride Level 98 mEQ/L (98-107) Carbon Dioxide Level 29 mEQ/L (20-30) Anion Gap 15 (5-15) Blood Urea Nitrogen 36 mg/dL (7-23) H Creatinine 1.9 mg/dL (0.5-0.9) H Estimat Glomerular Filtration Rate mL/min (>60) Glucose Level 81 mg/dL (74-106) Calcium Level 9.8 mg/dL (8.6-10.2) Total Bilirubin 0.3 mg/dL (0.0-1.2) Aspartate Amino Transf (AST/SGOT) 13 U/L (5-40) Alanine Aminotransferase (ALT/SGPT) 6 U/L (3-33) Alkaline Phosphatase 63 U/L (35-104) Pro-B-Type Natriuretic Peptide 875 pg/mL (0-450) H Total Protein 6.7 g/dL (6.6-8.7) Albumin 3.2 g/dL (3.5-5.2) L Globulin 3.5 g/dL Albumin/Globulin Ratio 0.9 (1.0-2.7) L CATALINA SAN Aug 30, 2016 17:48
--- NOTE | 2016-08-30 19:00 | Internal Med Progress Note ---
Subjective Date of Service: Aug 30, 2016 Physician Name Leslie Parry Attending Physician Fredy Benjamin MD Current Medications Medications (Trade) Dose Ordered Sig/Tricia Route PRN Reason Start Time Stop Time Status Last Admin Dose Admin Acetaminophen (Tylenol) 650 mg Q4H PRN ORAL Fever 08/26/16 23:30 09/25/16 23:29 Albuterol/ Ipratropium (DuoNeb 0.5-3(2.5)mg/3ml) 3 ml Q4H PRN HHN Shortness of Breath 08/26/16 23:30 08/31/16 23:29 Dextrose (Dextrose 50%) STAT PRN IV Hypoglycemia 08/26/16 23:30 09/25/16 23:29 Furosemide (Lasix) 20 mg DAILY IV 08/31/16 09:00 09/30/16 08:59 Heparin Sodium (Porcine) (Heparin 5000 units/ml) 5,000 units EVERY 12 HOURS SUBQ 08/27/16 09:00 09/26/16 08:59 08/30/16 08:52 Levofloxacin (Levaquin) 100 ml @ 100 mls/hr Q48H IVPB 08/29/16 16:00 09/05/16 15:59 08/29/16 17:22 Lisinopril 10 mg 10 mg DAILY ORAL 08/29/16 09:00 09/28/16 08:59 08/30/16 11:16 Metoprolol Tartrate (Lopressor) 25 mg BID@0900,2100 ORAL 08/27/16 09:00 09/26/16 08:59 08/30/16 11:16 Ondansetron HCl (Zofran) 4 mg Q6H PRN IVP Nausea & Vomiting 08/26/16 23:30 09/25/16 23:29 Polyethylene Glycol (Miralax) 17 gm DAILYPRN PRN ORAL Constipation 08/26/16 23:30 09/25/16 23:29 Temazepam (Restoril) 15 mg HSPRN PRN ORAL Insomnia 08/26/16 23:30 09/02/16 23:29 Allergies: Coded Allergies: No Known Allergies (Verified , 03/30/09) ROS Limited/Unobtainable: No Constitutional: Reports: no symptoms HEENT: Reports: no symptoms Cardiovascular: Reports: no symptoms Respiratory: Reports: shortness of breath Gastrointestinal/Abdominal: Reports: no symptoms Genitourinary: Reports: no symptoms Neurologic/Psychiatric: Reports: no symptoms Subjective 86 YO F admitted with shortness of breath. Now COPD exacerbation and CHF. Cover for Int Daryl-Dr Benjamin. Awiat pacemaker interrogation. Tolerating nasal canula. Objective Last Vital Signs Date Time Temp Pulse Resp B/P Pulse Ox O2 Delivery O2 Flow Rate FiO2 08/30/16 16:00 97.0 69 19 129/48 96 Room Air 08/30/16 12:00 3.5 08/29/16 19:11 28 Laboratory Tests Test 08/30/16 03:55 White Blood Count 8.5 K/UL (4.8-10.8) Red Blood Count 3.98 M/UL (4.20-5.40) L Hemoglobin 12.3 G/DL (12.0-16.0) Hematocrit 37.9 % (37.0-47.0) Mean Corpuscular Volume 95 FL (80-99) Mean Corpuscular Hemoglobin 30.7 PG (27.0-31.0) Mean Corpuscular Hemoglobin Concent 32.3 G/DL (32.0-36.0) Red Cell Distribution Width 13.6 % (11.6-14.8) Platelet Count 223 K/UL (150-450) Mean Platelet Volume 7.8 FL (6.5-10.1) Neutrophils (%) (Auto) 65.7 % (45.0-75.0) Lymphocytes (%) (Auto) 21.3 % (20.0-45.0) Monocytes (%) (Auto) 8.2 % (1.0-10.0) Eosinophils (%) (Auto) 3.9 % (0.0-3.0) H Basophils (%) (Auto) 0.9 % (0.0-2.0) Sodium Level 142 mEQ/L (135-145) Potassium Level 3.9 mEQ/L (3.4-4.9) Chloride Level 98 mEQ/L (98-107) Carbon Dioxide Level 29 mEQ/L (20-30) Anion Gap 15 (5-15) Blood Urea Nitrogen 36 mg/dL (7-23) H Creatinine 1.9 mg/dL (0.5-0.9) H Estimat Glomerular Filtration Rate mL/min (>60) Glucose Level 81 mg/dL (74-106) Calcium Level 9.8 mg/dL (8.6-10.2) Total Bilirubin 0.3 mg/dL (0.0-1.2) Aspartate Amino Transf (AST/SGOT) 13 U/L (5-40) Alanine Aminotransferase (ALT/SGPT) 6 U/L (3-33) Alkaline Phosphatase 63 U/L (35-104) Pro-B-Type Natriuretic Peptide 875 pg/mL (0-450) H Total Protein 6.7 g/dL (6.6-8.7) Albumin 3.2 g/dL (3.5-5.2) L Globulin 3.5 g/dL Albumin/Globulin Ratio 0.9 (1.0-2.7) L Intake and Output 08/29/16 08/30/16 19:00 07:00 Intake Total 380 ml 120 ml Output Total 700 ml 400 ml Balance -320 ml -280 ml Intake Oral 280 ml 120 ml IV Total 100 ml Output Urine Total 700 ml 400 ml Objective General Appearance: alert, mild distress, thin EENT: PERRL/EOMI, normal ENT inspection Neck: non-tender, normal alignment, supple, normal inspection Cardiovascular: normal peripheral pulses, no gallop/murmur, no JVD, irregularly irregular Respiratory/Chest: Nasal canula; chest wall non-tender, accessory muscle use, crackles/rales, rhonchi - bilaterally, expiratory wheezing Abdomen: normal bowel sounds, non tender, soft, no organomegaly, no mass Extremities: normal range of motion 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 Due to COPD below. (2) COPD (chronic obstructive pulmonary disease) Assessment & Plan: Acute exacerbation-See pulmonary note. (3) Atrial fibrillation Assessment & Plan: Restart eliquis per cardiology. Await pacemaker interrogation. (4) Sick sinus syndrome Assessment & Plan: S/P pacemaker-see cardiology note. (5) HTN (hypertension) Assessment & Plan: Continue lopressor and procardia (6) Pacemaker (7) Congestive heart failure Assessment & Plan: Continue lasix per cardiology Status: progressing Assessment/Plan Transfer to [facility] LESLIE Patten Aug 30, 2016:00
[2016-08-30 20:00] VITALS: BP 129/59
[2016-08-31] VITALS: BP 124/58
[2016-08-31 04:00] VITALS: BP 122/51
[2016-08-31 05:00] LABS: BASOPHILS % (AUTO) 0.9 % (0.0-2.0); EOSINOPHILS % (AUTO) 5.9 % (0.0-3.0); LYMPHOCYTES % (AUTO) 23.2 % (20.0-45.0); MEAN CORPUSCULAR HEMOGLOBIN 31.2 PG (27.0-31.0); MEAN CORPUSCULAR HGB CONC 32.8 G/DL (32.0-36.0); MEAN CORPUSCULAR VOLUME 95 FL (80-99); MEAN PLATELET VOLUME 7.3 FL (6.5-10.1); MONOCYTES % (AUTO) 9.8 % (1.0-10.0); NEUTROPHILS % (AUTO) 60.2 % (45.0-75.0); PLATELET COUNT 204 K/UL (150-450); RED BLOOD COUNT 3.89 M/UL (4.20-5.40); RED CELL DISTRIBUTION WIDTH 13.4 % (11.6-14.8); WHITE BLOOD COUNT 7.7 K/UL (4.8-10.8)
[2016-08-31 06:02] LABS: ALANINE AMINOTRANSFERASE 6 U/L (3-33); ALBUMIN/GLOBULIN RATIO 0.8 (1.0-2.7); ANION GAP 13 (5-15); ASPARTATE AMINO TRANSFERASE 13 U/L (5-40); CALCIUM 9.7 mg/dL (8.6-10.2); CARBON DIOXIDE 31 mEQ/L (20-30); CHLORIDE 97 mEQ/L (98-107); CREATININE 2.1 mg/dL (0.5-0.9); HEMOLYSIS 1; POTASSIUM 3.7 mEQ/L (3.4-4.9); SODIUM 141 mEQ/L (135-145); TOTAL PROTEIN 6.6 g/dL (6.6-8.7)
--- NOTE | 2016-08-31 06:59 | Pulmonology Progress Note ---
Assessment/Plan Assessment/Plan ASSESSMENT pulmonary edema acute respiratory failure requiring BiPAP-resolved COPD possible PNA PAF HTN Pacemaker CHF acute renal failure on CRI likely due to Lasix use Hx of bladder Ca PLAN OF CARE O2 HHN off BiPAP CXR 08/30 resolved pulmonary edema , pro BNP with large trend down hold Lasix and TOM , check BMP in am , renal US with normal kidney echogenicity cardio follows last ECHO 08/10 with EF 55-60% and RVSP of 38 c/w mild pulmonary HTN rate control with BB ; off a/coagulation due to GI bleeding pacemaker interrogation done, functioning properly, no evidence of A fib on interrogation BP management with BB and TOM, abx, ID follows blood cx negative bowel regimen DVT prophylaxis dc plan as per PMD case discussed and evaluated by supervising physician Subjective Allergies: Coded Allergies: No Known Allergies (Verified , 03/30/09) Subjective off BiPAP on O2 via NC no signs of respiratory distress in renal failure with creat up to 2.1 less SOB, no chest pain Objective Last 24 Hour Vital Signs Date Time Temp Pulse Resp B/P Pulse Ox O2 Delivery O2 Flow Rate FiO2 08/31/16 04:00 97.0 66 18 122/51 100 Nasal Cannula 2.0 08/31/16 03:42 60 08/31/16 00:00 98.0 63 20 124/58 99 Nasal Cannula 3.0 08/30/16 23:39 61 08/30/16 21:13 68 129/59 08/30/16 20:00 97.7 68 20 129/59 100 Nasal Cannula 3.0 08/30/16 19:12 72 08/30/16 19:06 Nasal Cannula 3.0 32 08/30/16 19:05 96 Nasal Cannula 3.0 32 08/30/16 16:00 97.0 69 19 129/48 96 Room Air 08/30/16 12:00 60 08/30/16 12:00 96.8 72 20 129/43 97 Nasal Cannula 3.5 08/30/16 11:16 129/43 08/30/16 11:16 63 129/43 08/30/16 08:00 60 08/30/16 08:00 98.2 64 18 105/73 99 Nasal Cannula 3.0 08/30/16 07:46 Nasal Cannula 3.0 08/30/16 07:45 100 Nasal Cannula 3.0 Intake and Output 08/30/16 08/31/16 19:00 07:00 Intake Total 450 ml 30 ml Output Total 250 ml Balance 450 ml -220 ml Intake Oral 450 ml 30 ml Output Urine Total 250 ml # Voids 2 Objective General Appearance: alert, in NAD , thin AA female EENT: PERRL/EOMI, normal ENT inspection Neck: non-tender, normal alignment, supple, normal inspection Cardiovascular: normal peripheral pulses, no gallop/murmur, no JVD, irregularly irregular, neftaly controlled Respiratory/Chest: Nasal canula; chest wall non-tender, accessory muscle use, few isolated crackles at bases, scattered rhonchi - bilaterally, Abdomen: normal bowel sounds, non tender, soft, no organomegaly, no mass Extremities: normal range of motion 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, no motor/sensory deficits Skin: normal pigmentation, warm/dry Laboratory Tests 08/31/16 03:40: White Blood Count 7.7, Red Blood Count 3.89L, Hemoglobin 12.2, Hematocrit 37.1, Mean Corpuscular Volume 95, Mean Corpuscular Hemoglobin 31.2H, Mean Corpuscular Hemoglobin Concent 32.8, Red Cell Distribution Width 13.4, Platelet Count 204, Mean Platelet Volume 7.3, Neutrophils (%) (Auto) 60.2, Lymphocytes (%) (Auto) 23.2, Monocytes (%) (Auto) 9.8, Eosinophils (%) (Auto) 5.9H, Basophils (%) (Auto ) 0.9, Sodium Level 141, Potassium Level 3.7, Chloride Level 97L, Carbon Dioxide Level 31H, Anion Gap 13, Blood Urea Nitrogen 42H, Creatinine 2.1H, Estimat Glomerular Filtration Rate , Glucose Level 84, Calcium Level 9.7, Total Bilirubin 0.4, Aspartate Amino Transf (AST/SGOT) 13, Alanine Aminotransferase ( ALT/SGPT) 6, Alkaline Phosphatase 63, Pro-B-Type Natriuretic Peptide 794H, Total Protein 6.6, Albumin 3.1L, Globulin 3.5, Albumin/Globulin Ratio 0.8L Current Medications Medications (Trade) Dose Ordered Sig/Tricia Route PRN Reason Start Time Stop Time Status Last Admin Dose Admin Acetaminophen (Tylenol) 650 mg Q4H PRN ORAL Fever 08/26/16 23:30 09/25/16 23:29 Albuterol/ Ipratropium (DuoNeb 0.5-3(2.5)mg/3ml) 3 ml Q4H PRN HHN Shortness of Breath 08/26/16 23:30 08/31/16 23:29 Dextrose (Dextrose 50%) STAT PRN IV Hypoglycemia 08/26/16 23:30 09/25/16 23:29 Furosemide (Lasix) 20 mg DAILY IV 08/31/16 09:00 09/30/16 08:59 Heparin Sodium (Porcine) (Heparin 5000 units/ml) 5,000 units EVERY 12 HOURS SUBQ 08/27/16 09:00 09/26/16 08:59 08/30/16 21:14 Levofloxacin (Levaquin) 100 ml @ 100 mls/hr Q48H IVPB 08/29/16 16:00 09/05/16 15:59 08/29/16 17:22 Lisinopril 10 mg 10 mg DAILY ORAL 08/29/16 09:00 09/28/16 08:59 08/30/16 11:16 Metoprolol Tartrate (Lopressor) 25 mg BID@0900,2100 ORAL 08/27/16 09:00 09/26/16 08:59 08/30/16 21:13 Ondansetron HCl (Zofran) 4 mg Q6H PRN IVP Nausea & Vomiting 08/26/16 23:30 09/25/16 23:29 Polyethylene Glycol (Miralax) 17 gm DAILYPRN PRN ORAL Constipation 08/26/16 23:30 09/25/16 23:29 Temazepam (Restoril) 15 mg HSPRN PRN ORAL Insomnia 08/26/16 23:30 09/02/16 23:29 Keara Shaw NP (Vanchtein) Aug 31, 2016 06:59
[2016-08-31 08:00] VITALS: BP 102/55
[2016-08-31] MEDS: Metoprolol 25mg tab ORAL SCH (08:19)
[2016-08-31] MEDS: Heparin 5000 units/ml inj SUBQ SCH (08:43)
--- NOTE | 2016-08-31 11:08 | Diagnostic Imaging Report ---
Indication: Dyspnea Technique: XRAY CHEST 1 V Comparison: 08/30/16 Findings: Cardiomediastinal silhouette is stable. There is again elevation of the right hemidiaphragm with right basilar atelectasis. Left chest pacemaker is noted. Osseous structures are stable. Impression: No change from 08/30/16.
[2016-08-31 12:20] VITALS: BP 120/48
--- NOTE | 2016-08-31 13:47 | Internal Med Progress Note ---
Subjective Date of Service: Aug 31, 2016 Physician Name Leslie Paulino Attending Physician Fredy Benjamin MD Current Medications Medications (Trade) Dose Ordered Sig/Tricia Route PRN Reason Start Time Stop Time Status Last Admin Dose Admin Acetaminophen (Tylenol) 650 mg Q4H PRN ORAL Fever 08/26/16 23:30 09/25/16 23:29 Albuterol/ Ipratropium (DuoNeb 0.5-3(2.5)mg/3ml) 3 ml Q4H PRN HHN Shortness of Breath 08/26/16 23:30 08/31/16 23:29 Dextrose STAT PRN IV Hypoglycemia 08/26/16 23:30 09/25/16 23:29 Heparin Sodium (Porcine) (Heparin 5000 units/ml) 5,000 units EVERY 12 HOURS SUBQ 08/27/16 09:00 09/26/16 08:59 08/31/16 08:43 Levofloxacin (Levaquin) 100 ml @ 100 mls/hr Q48H IVPB 08/29/16 16:00 09/05/16 15:59 08/29/16 17:22 Metoprolol Tartrate (Lopressor) 25 mg BID@0900,2100 ORAL 08/27/16 09:00 09/26/16 08:59 08/30/16 21:13 Ondansetron HCl (Zofran) 4 mg Q6H PRN IVP Nausea & Vomiting 08/26/16 23:30 09/25/16 23:29 Polyethylene Glycol (Miralax) 17 gm DAILYPRN PRN ORAL Constipation 08/26/16 23:30 09/25/16 23:29 Temazepam (Restoril) 15 mg HSPRN PRN ORAL Insomnia 08/26/16 23:30 09/02/16 23:29 Allergies: Coded Allergies: No Known Allergies (Verified , 03/30/09) ROS Limited/Unobtainable: No Constitutional: Reports: no symptoms HEENT: Reports: no symptoms Cardiovascular: Reports: no symptoms Respiratory: Reports: no symptoms Gastrointestinal/Abdominal: Reports: no symptoms Genitourinary: Reports: no symptoms Neurologic/Psychiatric: Reports: weakness Subjective 86 YO F admitted with shortness of breath. Now COPD exacerbation and CHF. [place]. Cover for Int Med-Dr Benjamin. Await transfer to [facility] today. Tolerating nasal canula. Objective Last Vital Signs Date Time Temp Pulse Resp B/P Pulse Ox O2 Delivery O2 Flow Rate FiO2 08/31/16 12:20 97.0 65 21 120/48 Room Air 08/31/16 08:00 97 08/31/16 06:47 3.0 08/30/16 19:06 32 Laboratory Tests Test 08/31/16 03:40 White Blood Count 7.7 K/UL (4.8-10.8) Red Blood Count 3.89 M/UL (4.20-5.40) L Hemoglobin 12.2 G/DL (12.0-16.0) Hematocrit 37.1 % (37.0-47.0) Mean Corpuscular Volume 95 FL (80-99) Mean Corpuscular Hemoglobin 31.2 PG (27.0-31.0) H Mean Corpuscular Hemoglobin Concent 32.8 G/DL (32.0-36.0) Red Cell Distribution Width 13.4 % (11.6-14.8) Platelet Count 204 K/UL (150-450) Mean Platelet Volume 7.3 FL (6.5-10.1) Neutrophils (%) (Auto) 60.2 % (45.0-75.0) Lymphocytes (%) (Auto) 23.2 % (20.0-45.0) Monocytes (%) (Auto) 9.8 % (1.0-10.0) Eosinophils (%) (Auto) 5.9 % (0.0-3.0) H Basophils (%) (Auto) 0.9 % (0.0-2.0) Sodium Level 141 mEQ/L (135-145) Potassium Level 3.7 mEQ/L (3.4-4.9) Chloride Level 97 mEQ/L (98-107) L Carbon Dioxide Level 31 mEQ/L (20-30) H Anion Gap 13 (5-15) Blood Urea Nitrogen 42 mg/dL (7-23) H Creatinine 2.1 mg/dL (0.5-0.9) H Estimat Glomerular Filtration Rate mL/min (>60) Glucose Level 84 mg/dL (74-106) Calcium Level 9.7 mg/dL (8.6-10.2) Total Bilirubin 0.4 mg/dL (0.0-1.2) Aspartate Amino Transf (AST/SGOT) 13 U/L (5-40) Alanine Aminotransferase (ALT/SGPT) 6 U/L (3-33) Alkaline Phosphatase 63 U/L (35-104) Pro-B-Type Natriuretic Peptide 794 pg/mL (0-450) H Total Protein 6.6 g/dL (6.6-8.7) Albumin 3.1 g/dL (3.5-5.2) L Globulin 3.5 g/dL Albumin/Globulin Ratio 0.8 (1.0-2.7) L Intake and Output 08/30/16 08/31/16 19:00 07:00 Intake Total 450 ml 30 ml Output Total 250 ml Balance 450 ml -220 ml Intake Oral 450 ml 30 ml Output Urine Total 250 ml # Voids 2 Objective General Appearance: alert, mild distress, thin EENT: PERRL/EOMI, normal ENT inspection Neck: non-tender, normal alignment, supple, normal inspection Cardiovascular: normal peripheral pulses, no gallop/murmur, no JVD, irregularly irregular Respiratory/Chest: Nasal canula; chest wall non-tender, accessory muscle use, crackles/rales, rhonchi - bilaterally, expiratory wheezing Abdomen: normal bowel sounds, non tender, soft, no organomegaly, no mass Extremities: normal range of motion 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 Due to COPD below. (2) COPD (chronic obstructive pulmonary disease) Assessment & Plan: Acute exacerbation-See pulmonary note. (3) Atrial fibrillation Assessment & Plan: Restart eliquis per cardiology. Await pacemaker interrogation. (4) Sick sinus syndrome Assessment & Plan: S/P pacemaker-see cardiology note. (5) HTN (hypertension) Assessment & Plan: Continue lopressor and procardia (6) Pacemaker (7) Congestive heart failure Assessment & Plan: Continue lasix per cardiology Assessment/Plan Transfer to [facility] fac today LESLIE PAULINO Aug 31, 2016 13:47
--- NOTE | 2016-09-03 08:51 | Discharge Summary ---
Discharge Summary Hospital Course Date of Admission Aug 26, 2016 at 22:00 Date of Discharge Aug 31, 2016 at 15:01 Admitting Diagnosis chf exacerbation HPI Nanci Lyles is a 86 year old female who was admitted on Aug 26, 2016 at 22:00 for Congestive Heart Failure Exacerbation Hospital Course dc summary # [id number] Discharge Medications New Medications: Levofloxacin* (Levaquin*) 500 Mg Tablet 500 MG ORAL DAILY, #3 TAB Continued Medications: Albuterol Sulfate* (Albuterol Sulfate Mdi*) 8.5 Gm Hfa.aer.ad 2 PUFF INH Q6H, #1 INH 0 Refills Budesonide/Formoterol Fumarate (Symbicort 80-4.5 Mcg Inhaler) 10.2 Gm Hfa.aer.ad 1 PUFF IH, #1 INH 0 Refills Metoprolol Tartrate* (Metoprolol Tartrate*) 25 Mg Tablet 25 MG ORAL BID, TAB Pregabalin (Lyrica) 25 Mg Cap 25 MG ORAL BID, CAP Rosuvastatin Calcium (Crestor) 10 Mg Tab 10 MG ORAL DAILY, TAB Zolpidem Tartrate* (Ambien*) 10 Mg Tablet 10 MG ORAL BEDTIME PRN for Insomnia, TAB 0 Refills Discharge Condition Upon Discharge: stable Discharge Disposition Patient was discharged to SNF/Subacute Facility(03) Discharge Diagnoses: Colin (Keara Potter NP Sep 03, 2016 08:51
--- NOTE | 2016-09-03 23:38 | Discharge Summary 2 SIG ---
DATE OF ADMISSION: 08/26/2016 DATE OF DISCHARGE: 08/31/2016 REASON FOR ADMISSION: 86-year-old female presented to emergency room after having acute onset of shortness of breath. The patient with multiple cardiac issues including hypertension, pacemaker, and congestive heart failure. Paramedics given nitroglycerin. Shortness of breath was worse in the supine position. No leg edema. EKG showed ventricular paced rhythm. Initially with nonrebreathing mask when she was brought by paramedics,ED doctor changed to BiPAP. The patient was started on the IV Lasix. Chest x-ray was worse compared to the prior imaging studies and revealed oulmonary edema. ProBNP was 3804. Troponin was negative. The patient was admitted to the hospital. ADMITTING DIAGNOSES: 1. Acute respiratory failure, requiring BiPAP. 2. Pulmonary edema. 3. Congestive heart failure. 4. Chronic obstructive pulmonary disease. HOSPITAL STAY: The patient was admitted to telemetry floor. Eventually, she was able to be weaned off BiPAP. Supplemental oxygen and pulmonary toilet provided as needed. The patient was followed up with chest x-ray and proBNP. On 08/30/2016, chest x-ray revealed resolved pulmonary edema. ProBNP was a large trend down. The patient was on Lasix. Input and output, renal parameters, and electrolytes were closely monitored. However, the patient developed increase in creatinine. Lasix and TOM were placed on hold. Renal ultrasound revealed normal kidney echogenicity. Last echocardiogram revealed ejection fraction of 45% to 50% and right ventricular systolic pressure of 38 consistent with mild pulmonary hypertension as well as evidence of mild left ventricular hypertrophy, at least moderate mitral regurgitation and moderate tricuspid regurgitation. Panel Installer followed. All troponin were negative, history of old myocardial infarction. Echo was personally reviewed by air export coordinator. Pacemaker interrogation was done. The pacemaker functioning properly; , no evidence of atrial fibrillation on interrogation. The patient off anticoagulation due to history of the GI bleeding. Continue beta-jenny. Blood pressure was managed with beta-jenny and TOM. The patient was treated with empiric antibiotics per ID for possible pneumonia. Blood cultures were negative. Per ID continue 3 more days of Levaquin. The patient was afebrile. No leukocytosis. Bowel regimen instituted. DVT prophylaxis provided. Creatinine was up to 2.1 on the day of the discharge. Hold Lasix and lisinopril for now until seen by the doctor at the facility. Will need close monitoring of renal parameters prior to resuming diuretic. Acute systolic heart failure exacerbation seemed to be resolved Supplemental oxygen provided as needed. DISCHARGE DIAGNOSES: 1. Acute respiratory failure, requiring BiPAP, resolved. 2. Pulmonary edema secondary to acute congestive heart failure exacerbation, resolved. 3. Acute systolic congestive heart failure exacerbation, resolved. 4. Chronic obstructive pulmonary disease. 5. Possible pneumonia. 6. Paroxysmal atrial fibrillation. 7. Pacemaker, secondary to sick sinus syndrome. 8. Hypertension. 9. Acute renal failure, likely on chronic renal insufficiency, likely secondary to Lasix. 10. History of bladder carcinoma. 11. Mild pulmonary hypertension. DISCHARGE MEDICATIONS: See medication reconciliation list. At this point, hold Lasix and TOM. DISCHARGE INSTRUCTIONS: The patient was discharged to residential facility. Follow up with medical doctor at the facility. Follow up with the electrolytes and chemistry panel in the facility. Lasix will be resumed by the medical doctor in the facility as deemed appropriate after checking renal parameters. Fredy Benjamin M.D. Keara HoranAuburn Community HospitalDomingo NJosafatPJosafat DR: BRET JOB#: [id number] CC: SAGAR
== END 2016-08-31 15:01 | DRG 291 ==
LOC: EDBD 21:37 → EMR 21:51 → 2W 22:00 → EDBEDREQ 22:41 → 2W 08-27 02:35
PROC: 5A09357 Assistance with Respiratory Ventilation, Less than 24 Consecutive Hours, Continuous Positive Airway Pressure (ICD-10-PCS; principal; 2016-08-26)
DX: I50.23 Acute on chronic systolic (congestive) heart failure (principal); J96.00 Acute respiratory failure, unspecified whether with hypoxia or hypercapnia; J18.9 Pneumonia, unspecified organism; N17.9 Acute kidney failure, unspecified; J44.1 Chronic obstructive pulmonary disease with (acute) exacerbation; I27.2 Other secondary pulmonary hypertension; I48.0 Paroxysmal atrial fibrillation; I13.0 Hypertensive heart and chronic kidney disease with heart failure and stage 1 through stage 4 chronic kidney disease, or unspecified chronic kidney disease; M19.90 Unspecified osteoarthritis, unspecified site; Z85.51 Personal history of malignant neoplasm of bladder; Z95.0 Presence of cardiac pacemaker; N18.9 Chronic kidney disease, unspecified; I08.1 Rheumatic disorders of both mitral and tricuspid valves; I25.2 Old myocardial infarction; Z86.73 Personal history of transient ischemic attack (TIA), and cerebral infarction without residual deficits; M81.0 Age-related osteoporosis without current pathological fracture; E78.5 Hyperlipidemia, unspecified
CPT/HCPCS: 36415; 71010; 76775; 80048; 80053; 80069; 82550; 82553; 83690; 83880; 84484; 85025; 87040; 87081; 93005; 93970; 94664; 94760